=== PATIENT | male | born 1960 | race Two or more races ===

== ENCOUNTER 2020-08-17 09:35 | Inpatient (IN) | payer BC, OTHER ==
[~2020-08-17] VITALS: Ht 167.6 cm; Wt 69.0 kg
--- NOTE | 2020-08-17 09:44 | Emergency Room Report ---
History of Present Illness General Chief Complaint: Upper Respiratory Illness Source: Patient, EMS Present Illness HPI Disclaimer: Please note that this report is being documented using DRAGON technology. This can lead to erroneous entry secondary to incorrect interpretation by the dictating instrument. HPI: 60-year-old male presents from [facility] related for evaluation of shortness of breath. Reportedly he was desaturating during a coughing fit. No fevers reported. Tested positive for Covid in June. Has history of di abetes and hypertension otherwise. Patient denies fever, chills, chest pain, palpitation, nausea, vomiting, abdominal pain or dysuria. Feeling comfortable on nasal cannula. 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 EOMI. Cardiovascular: Tachycardic. S1 and S2 normal. No murmur appreciated Resp: Normal work of breathing. 2 L nasal cannula. 100%. Faint crackles bilaterally. No wheezing. Abdomen: Abdomen is soft, nondistended. Obese abdomen. Nontender Skin: Intact. No abrasions, laceration or rash over the exposed skin MSK: Normal tone and bulk. Moving all extremities. No obvious deformity. Neuro: Awake and alert. Mentating appropriately. Procedures Critical Care Time Critical Care Time Total critical care time: Approximately 45 minutes Due to a high probability of clinically significant, life threatening deterioration, the patient required the highest level of preparedness to intervene emergently and I personally spent this critical care time directly and personally managing the patient. This critical care time included obtaining a history, examining the patient, pulse oximetry, ordering and reviewing studies, ordering treatments, evaluating response to treatment and updating management plan as needed, frequent reassessment and discussion with other providers as well as arranging for ultimate disposition. This critical to care time was p erformed to assess and manage the high probability of life-threatening deterioration that could result in multiorgan failure. This critical care time is separate from the separately billable procedures and treating other patients. Medical Decision Making Diagnostic Impression: Primary Impression: Pneumonia Additional Impressions: Elevated d-dimer Tachycardia ER Course 60-year-old male presents for evaluation of desaturations while coughing at his nursing facility. Concern for pneumonia, bronchitis, COVID-19 infection, sepsis , obstruction, ACS, PE among others. She arrives in no acute distress saturating 100% comfortable on 2 L nasal cannula. His EKG showed sinus tachycardia. Broad labs ordered. IV fluids ordered. Heart rate improving. Lactate within normal limits. White count elevated. Blood gas largely unremarkable. D-dimer positive and patient was treated with Lovenox. Urinalysis shows positive inflammatory signs but not a clear urinary tract infection. Chest x-ray concerning for bilateral congestion versus infiltrates. Treated with broad-spectrum antibiotics. Patient will be admitted for presumed pneumonia given the reports of desaturation elevated white count. Admitted to panel physician, Dr. Evans. Laboratory Tests Test 08/17/20 10:00 08/17/20 10:06 08/17/20 10:50 White Blood Count 15.5 K/UL (4.8-10.8) H Red Blood Count 3.70 M/UL (4.70-6.10) L Hemoglobin 11.1 G/DL (14.2-18.0) L Hematocrit 34.1 % (42.0-52.0) L Mean Corpuscular Volume 92 FL (80-99) Mean Corpuscular Hemoglobin 30.1 PG (27.0-31.0) Mean Corpuscular Hemoglobin Concent 32.6 G/DL (32.0-36.0) Red Cell Distribution Width 16.6 % (11.6-14.8) H Platelet Count 657 K/UL (150-450) H Mean Platelet Volume 5.0 FL (6.5-10.1) L Neutrophils (%) (Auto) 71.8 % (45.0-75.0) Lymphocytes (%) (Auto) 17.8 % (20.0-45.0) L Monocytes (%) (Auto) 7.8 % (1.0-10.0) Eosinophils (%) (Auto) 1.5 % (0.0-3.0) Basophils (%) (Auto) 1.2 % (0.0-2.0) Prothrombin Time 11.8 SEC (9.30-11.50) H Prothrombin Time INR 1.1 (0.9-1.1) Activated Partial Thromboplast Time 32 SEC (23-33) D-Dimer 1.43 mg/L FEU (0.00-0.49) H Sodium Level 135 MMOL/L (136-145) L Potassium Level 3.6 MMOL/L (3.5-5.1) Chloride Level 97 MMOL/L (98-107) L Carbon Dioxide Level 34 MMOL/L (21-32) H Anion Gap 4 mmol/L (5-15) L Blood Urea Nitrogen 13 mg/dL (7-18) Creatinine 0.9 MG/DL (0.55-1.30) Estimated Glomerular Filtration Rate > 60 mL/min (>60) Glucose Level 262 MG/DL (74-106) H Lactic Acid Level 1.30 mmol/L (0.4-2.0) Calcium Level 8.6 MG/DL (8.5-10.1) Magnesium Level 1.3 MG/DL (1.8-2.4) L Ferritin 267 NG/ML (8-388) Total Bilirubin 0.3 MG/DL (0.2-1.0) Aspartate Amino Transferase (AST) 29 U/L (15-37) Alanine Aminotransferase (ALT) 22 U/L (12-78) Alkaline Phosphatase 115 U/L (46-116) Lactate Dehydrogenase 311 U/L (81-234) H Total Creatine Kinase 38 U/L (26-308) Creatine Kinase MB 1.9 NG/ML (0.0-3.6) Creatine Kinase MB Relative Index 5.0 Troponin I 0.000 ng/mL (0.000-0.056) C-Reactive Protein, Quantitative 4.0 mg/dL (0.00-0.90) H Pro-B-Type Natriuretic Peptide 276 pg/mL (0-125) H Total Protein 7.3 G/DL (6.4-8.2) Albumin 2.2 G/DL (3.4-5.0) L Globulin 5.1 g/dL Albumin/Globulin Ratio 0.4 (1.0-2.7) L Lipase 251 U/L (73-393) Arterial Blood pH 7.465 (7.350-7.450) Arterial Blood Partial Pressure CO2 45.2 mmHg (35.0-45.0) H Arterial Blood Partial Pressure O2 102.1 mmHg (75.0-100.0) H Arterial Blood HCO3 31.8 mmol/L (22.0-26.0) H Arterial Blood Oxygen Saturation 97.7 % (95-100) Arterial Blood Base Excess 7.2 (-2-2) H Mars Test Positive Urine Color Pale yellow Urine Appearance Slightly cloudy Urine pH 5 (4.5-8.0) Urine Specific [place] 1.020 (1.005-1.035) Urine Protein 1+ (NEGATIVE) H Urine Glucose (UA) 1+ (NEGATIVE) H Urine Ketones Negative (NEGATIVE) Urine Blood 2+ (NEGATIVE) H Urine Nitrite Negative (NEGATIVE) Urine Bilirubin Negative (NEGATIVE) Urine Urobilinogen Normal MG/DL (0.0-1.0) Urine Leukocyte Esterase 1+ (NEGATIVE) H Urine RBC 2-4 /HPF (0 - 0) H Urine WBC 2-4 /HPF (0 - 0) Urine Squamous Epithelial Cells None /LPF (NONE/OCC) Urine Bacteria Occasional /HPF (NONE) Urine Yeast Many /HPF (NONE) H Microbiology Date/Time Source Procedure Growth Status 08/17/20 10:00 Nasopharynx SARS-CoV-2 RdRp Gene Assay - Final Complete EKG Diagnostic Results Troponin ordered: Yes When was troponin ordered?: Aug 17, 2020 EKG Time: 09:51 Rate: tachycardiac Rhythm: NSR ST Segments: no acute changes Rhythm Strip Diag. Results Rhythm Strip Time: 09:51 EP Interpretation: yes Rate: 130s Rhythm: NSR Chest X-Ray Diagnostic Results Chest X-Ray Diagnostic Results : Chest X-Ray Ordered: Yes Indication: Shortness of Breath EP Interpretation: Yes Interpretation: other - Bilateral pulmonary congestion versus consolidation. Impression: Other - Bilateral congestion Electronically Signed by: Electronically signed by Dr. French Quinn Last Vital Signs Date Time Temp Pulse Resp B/P (MAP) Pulse Ox O2 Delivery O2 Flow Rate FiO2 08/17/20 09:32 97.9 118 20 128/63 84 100 Room Air Disposition: ADMITTED INPATIENT Condition: Serious French Quinn MD Aug 17, 2020 09:44
[2020-08-17] MEDS ORDERED: FUROSEMIDE40 MG ORAL (10:01)
[2020-08-17] MEDS ORDERED: PANTOPRAZOLE SO40 MG ORAL (10:01)
[2020-08-17] MEDS ORDERED: POTASSIUM CHLO20 ME1 ORAL (10:01)
[2020-08-17] MEDS ORDERED: ACIDOPHILUS1 EAC7 PO (10:01)
[2020-08-17] MEDS ORDERED: LANTUS SOL100 UNIT/1 SUBQ (10:01)
[2020-08-17 10:10] VITALS: BP 138/91
--- NOTE | 2020-08-17 10:12 | NUR ---
ED Nurse Note:pt. was BIBA from SNF with respiratory distress and covid positive in june, pt. is tachycardic and hypoxic on arrival, placed on 4L O2 via N/C, blood ,culture sent to labs, pt. placed on phototypesetting equipment monitor
[2020-08-17 10:24] LABS: BASOPHILS % (AUTO) 1.2 % (0.0-2.0); EOSINOPHILS % (AUTO) 1.5 % (0.0-3.0); HEMATOCRIT 34.1 % (42.0-52.0); HEMOGLOBIN 11.1 G/DL (14.2-18.0); LYMPHOCYTES % (AUTO) 17.8 % (20.0-45.0); MEAN CORPUSCULAR VOLUME 92 FL (80-99); MONOCYTES % (AUTO) 7.8 % (1.0-10.0); NEUTROPHILS % (AUTO) 71.8 % (45.0-75.0); PLATELET COUNT 657 K/UL (150-450); RED CELL DISTRIBUTION WIDTH 16.6 % (11.6-14.8); WHITE BLOOD COUNT 15.5 K/UL (4.8-10.8)
[2020-08-17 10:45] LABS: ANION GAP 4 mmol/L (5-15); BLOOD UREA NITROGEN 13 mg/dL (7-18); CALCIUM 8.6 MG/DL (8.5-10.1); CARBON DIOXIDE 34 MMOL/L (21-32); CHLORIDE 97 MMOL/L (98-107); CREATININE 0.9 MG/DL (0.55-1.30); POTASSIUM 3.6 MMOL/L (3.5-5.1); SODIUM 135 MMOL/L (136-145)
[2020-08-17] MEDS ORDERED: Piperacillin/Tazobactam 3.375 GM in NS 110 ML IVPB ONE (10:45)
[2020-08-17] MEDS ORDERED: Vancomycin 1 GM in NS 275 ML IVPB ONE (10:45)
[2020-08-17 10:48] LABS: INR 1.1 (0.9-1.1)
[2020-08-17 11:09] LABS: ALANINE AMINOTRANSFERASE 22 U/L (12-78); ALBUMIN 2.2 G/DL (3.4-5.0); ALBUMIN/GLOBULIN RATIO 0.4 (1.0-2.7); ALKALINE PHOSPHATASE 115 U/L (46-116); ASPARTATE AMINO TRANSFERASE 29 U/L (15-37); BILIRUBIN,TOTAL 0.3 MG/DL (0.2-1.0); CKMB 1.9 NG/ML (0.0-3.6); CREATINE KINASE 38 U/L (26-308); FERRITIN 267 NG/ML (8-388); LACTATE DEHYDROGENASE 311 U/L (81-234)
[2020-08-17 11:19] LABS: APPEARANCE,URINE SLIGHTLY CLOUDY; BILIRUBIN, URINE NEGATIVE (NEGATIVE); COLOR,URINE PALE YELLOW; GLUCOSE, URINE (UA) 1+ (NEGATIVE); KETONES,URINE NEGATIVE (NEGATIVE); LEUKOCYTE ESTERASE ,URINE 1+ (NEGATIVE); NITRITE,URINE NEGATIVE (NEGATIVE); PH,URINE 5 (4.5-8.0); PROTEIN,URINE 1+ (NEGATIVE); UROBILINOGEN,URINE NORMAL MG/DL (0.0-1.0)
[2020-08-17] MEDS ORDERED: Enoxaparin 40mg Inj SUBQ SCH (12:00)
--- NOTE | 2020-08-17 12:00 | NUR ---
ED Nurse Note:pt. came from SNF with F/Catheter in place and right femotal 3-lumen central line
[2020-08-17 12:55] VITALS: BP 120/64
--- NOTE | 2020-08-17 14:07 | NUR ---
ED Nurse Note:pt. has sacral wound, picture taken and downloaded
[2020-08-17 14:10] VITALS: BP 137/70
--- NOTE | 2020-08-17 14:35 | NUR ---
ED Nurse Note:called report to S[facility]- given to Phoebe
--- NOTE | 2020-08-17 14:35 | NUR ---
NURSE NOTES: Received pt a new admission from ED brought to SDU per avi awake,alert oriented Indian speaking noted no resp distress or SOB,on 4 L NC,S-Tach on the monitor,with Henderson cath draining yellow urine,,skin warm and dry,with Rt Femoral TLC and SL to LFA,both intact,SR up x2 HOB elevated bed lock in lowest position,call fischer within reach at bedside,will continue with POC.Report given by Mary Anne LIANG RN.
--- NOTE | 2020-08-17 14:49 | Diagnostic Imaging Report ---
Indication: Reason For Exam: SOB Technique: Single AP view of the chest. Comparison: None. Findings: Heart is enlarged when accounting for projection and technique. There is moderate to severe interstitial edema with patchy diffuse bilateral airspace opacities right hemidiaphragm is noted to be elevated. Likely small bilateral pleural effusions. No acute osseous abnormality. IMPRESSION: 1. Bilateral interstitial and airspace opacities, likely representing moderate pulmonary edema, though superimposed pneumonia is not excluded. 2. Cardiomegaly. 3. Likely small bilateral pleural effusions.
[2020-08-17] MEDS ORDERED: Miralax 17gm pkt ORAL PRN (15:00)
[2020-08-17] MEDS ORDERED: Promethazine/Codeine 5ml UD ORAL PRN (15:00)
[2020-08-17] MEDS ORDERED: LORazepam Inj 2mg/ml 1ml IV PRN (15:00)
--- NOTE | 2020-08-17 15:00 | NUR ---
NURSE NOTES: [facility] of Henderson cath insertion and Rt Femoral TLC,confirmed that Henderson and TLC was with PT when he was admitted to [facility] last Jul from [facility].Pt was admitted at [facility] last 07/05/2020 for + Covid and discharged to [facility] still Covid +.
[2020-08-17 16:00] VITALS: BP 131/73
[2020-08-17] MEDS: NovoLOG Insulin Flexpen SUBQ SCH ×2 (17:30→21:00)
--- NOTE | 2020-08-17 19:00 | NUR ---
NURSE NOTES: Received report from BERNADINE Sandhu. Pt is comfortably lying in bed, watching tv, not in distress. Alert and oriented x 4. Denies pain. Sinus Tachy on the share dairy farmer. Vital signs are stable. Pt just finish eating and awaiting transfer to 2E Room 207. O2 2L NC and saturating 93%.
--- NOTE | 2020-08-17 19:13 | NUR ---
NURSE HAND-OFF REPORT: Important Events on Shift:N/A Patient Status: Stable Diet: CCHO Pending Orders: N/A Pending Results/Labs:N/A Pending MD notification:Physician wound Consult Latest Vital Signs: Temperature 96.8 , Pulse 107 , B/P 131 /73 , Respiratory Rate 20 , O2 SAT 95 , Nasal Cannula, O2 Flow Rate 4.0 . Vital Sign Comment: Stable EKG Rhythm: Sinus Tachycardia Rhythm change?: N MD Notified?: - MD Response: Latest Beltrán Fall Score: 35 Fall Risk: Medium Risk Safety Measures: Call light Within Reach, Bed Alarm Zone 3, Side Rails Side Rails x2, Bed position Low and Locked. Fall Precautions: Yellow Socks Yellow Gown Door Sign Patient Fall Education Report given to Tosin Jimenez RN.
[2020-08-17 20:00] VITALS: BP 145/69
--- NOTE | 2020-08-17 20:00 | NUR ---
TRANSFER TO FLOOR: Patient transferred to 2E. Report given to 2E, RN. Belongings and medications given to RN. Pt vitals are stable, not in distress. O2 saturation @ 93%. Belongings endorse to receiving RN.
--- NOTE | 2020-08-17 20:10 | NUR ---
NURSE NOTES: Report received from BERNADINE Scott. Patient is awake on bed, alert and oriented x 4. Oriented to room and telemetry unit. desk monitor is in place, shows sinus tachycardia with no chest pain reported. On oxygen via nasal cannula @ 2Lpm, sating 95%. On CCHO (Medium), instructed and amenable. With lopez catheter, drained via gravity. On bedrest. Safety measures are in place, bed in lowest and locked position, side rails up x 2, call light button and bedside table within reach, instructed to call for any assistance needed. Will continue plan of care.
--- NOTE | 2020-08-17 20:16 | History & Physical ---
History and Physical History & Physicial Rc Evans MD Aug 17, 2020 20:16
[2020-08-17] MEDS: Cefepime HCl 2 GM in NS 110 ML IV SCH (21:18)
[2020-08-17] MEDS: Heparin 5000 units/ml inj SUBQ SCH (21:20)
[2020-08-17] MEDS: Vancomycin 1 GM in NS 275 ML IVPB SCH (22:18)
[2020-08-18] VITALS: BP 134/70
--- NOTE | 2020-08-18 00:15 | History and Physical Report ---
DATE OF ADMISSION: 08/17/2020 CHIEF COMPLAINT: Shortness of breath and cough. HISTORY OF PRESENT ILLNESS: This is a 60-year-old gentleman with a past medical history significant for COVID-19 infection, hypertension, diabetes type 2, who presented to the hospital from [facility] after he was noted to have shortness of breath. The patient was reported as being desaturating during the cough. No fever was reported. The patient was noted to have COVID positive infection in June 2020 and denies any fever, chills, chest pain, palpitation, nausea, vomiting, abdominal pain, or dysuria. The patient was started on oxygen in the ER and subsequently was admitted to the hospital with shortness of breath and cough, possible due to the pneumonia. PAST MEDICAL HISTORY/PAST SURGICAL HISTORY: As above, history of COVID-19 infection in 06/2020, hypertension, diabetes type 2, obesity. MEDICATIONS AT HOME: Please refer to medication reconciliation. ALLERGIES: No known drug allergies. SOCIAL HISTORY: No smoking, alcohol, or drugs at this time. Family history noncontributory. REVIEW OF SYSTEMS: Mostly as above. Denies any dysuria, frequency, hematuria. Complained of shortness of breath and cough. Denies any hemoptysis or hematochezia. Denies any fever or chills. PHYSICAL EXAMINATION: VITAL SIGNS: On admission, temperature 97.9, pulse of 118, respirations 20, and blood pressure 128/63. GENERAL: The patient is awake, responsive, no acute distress. HEAD AND NECK: Pupils are equal and reactive to light. Extraocular movements intact. NECK: Supple. No JVD. LUNGS: Good air entry. No wheezing or rales. HEART: S1, S2. Tachycardic. No murmur or gallops. ABDOMEN: Soft, nondistended, nontender. Positive bowel sounds. Mildly obese extremities. No cyanosis, clubbing, edema. NEUROLOGIC: red cross executive director II to XII grossly intact. Motor is 5+, symmetric. Gait was not assessed due to the patient's status. RECTAL AND GENITOURINARY: Refused and deferred. PSYCHIATRIC: Mood and affect are intact. LABORATORY DATA: Laboratory on admission, WBC of 15, hemoglobin 11, hematocrit 34, platelet is 657. ABG, pH of 7.45, pCO2 of 45, pO2 of 102, saturating 97%. Sodium 135, potassium 3.6, chloride 97, bicarb 32, BUN 13, creatinine 0.9, glucose is 262. Lactic acid is 1.3, calcium is 8.6, magnesium is 1.3, ferritin is at 267, ALT of 29, AST of 22, alkaline phosphatase 115. Troponin 0.00. ProBNP of 276, CK of 4.0, lipase is 251. PT of 11, INR 1.1, and PTT of 32. D-dimer is 1.43. UA has +1 glucose, +2 blood, +1 leukocytes, many yeast. Chest x-ray, bilateral interstitial and airspace opacities, likely representing moderate pulmonary edema, though superimposed pneumonia is not excluded, cardiomegaly, and likely small bilateral pleural effusions. Rapid COVID test is negative. ASSESSMENT: 1. Shortness of breath, possible pneumonia. 2. Leukocytosis, possibly due to pneumonia. 3. Hypertension. 4. Diabetes type 2. 5. Obesity. 6. Hypoxemia. 7. History of COVID-19 infection in June 2020. PLAN: Admit the patient to monitored unit. We will follow up laboratory. Broad-spectrum antibiotics with vancomycin, cefepime. Code status is full code. DVT prophylaxis, heparin subcu. We will follow up with blood glucose level. Pulmonary consultation with Dr. Herbert. Rc Evans M.D. DR: LEANDRA JOB#: [id number] CC:
[2020-08-18 04:00] VITALS: BP 117/62
[2020-08-18] MEDS: NovoLOG Insulin Flexpen SUBQ SCH ×4 (06:15→21:30)
--- NOTE | 2020-08-18 07:31 | NUR ---
NURSE NOTES: Report received from BERNADINE Oliver. Patient is awake on bed, alert and oriented x 4. Oriented to room and telemetry unit. child monitor is in place, shows sinus tachycardia with no chest pain reported. On oxygen via nasal cannula @ 2Lpm, sating 95%. Pt has a lopez catheter 18F, drained via gravity with [id number] urine. Safety measures are in place, bed in lowest and locked position, side rails up x 2 and bed alarm on. Call light and bedside table within reach. Will continue plan of care.
--- NOTE | 2020-08-18 07:32 | NUR ---
NURSE HAND-OFF REPORT: Important Events on Shift: Patient has been resting well the whole shift, noted SOB on exertion Patient Status: Patien is awake on bed, in stable condition, plan of care endorsed. Diet: CCHO (Medium) Pending Orders: Vanco through 08/19 0900 Pending Results/Labs:lab result that was done this morning Pending MD notification:none Latest Vital Signs: Temperature 97.5 , Pulse 99 , B/P 117 /62 , Respiratory Rate 24 , O2 SAT 97 , Nasal Cannula, O2 Flow Rate 2.0 . Vital Sign Comment: stable EKG Rhythm: Sinus Rhythm Rhythm change?: N MD Notified?: N - MD Response: Latest Beltrán Fall Score: 35 Fall Risk: Medium Risk Safety Measures: Call light Within Reach, Bed Alarm Zone 1, Side Rails Side Rails x2, Bed position Low and Locked. Fall Precautions: Yellow Socks Yellow Gown Door Sign Patient Fall Education Report given to BENRADINE Earl.
[2020-08-18 07:39] LABS: BASOPHILS % (AUTO) 1.2 % (0.0-2.0); EOSINOPHILS % (AUTO) 3.3 % (0.0-3.0); HEMATOCRIT 31.6 % (42.0-52.0); LYMPHOCYTES % (AUTO) 19.3 % (20.0-45.0); MEAN CORPUSCULAR VOLUME 95 FL (80-99); MONOCYTES % (AUTO) 10.2 % (1.0-10.0); PLATELET COUNT 553 K/UL (150-450); RED BLOOD COUNT 3.32 M/UL (4.70-6.10); RED CELL DISTRIBUTION WIDTH 16.3 % (11.6-14.8); WHITE BLOOD COUNT 10.7 K/UL (4.8-10.8)
[2020-08-18 07:40] LABS: INR 1.1 (0.9-1.1)
[2020-08-18 07:41] LABS: ALBUMIN 2.1 G/DL (3.4-5.0); ANION GAP 3 mmol/L (5-15); BLOOD UREA NITROGEN 12 mg/dL (7-18); CALCIUM 8.4 MG/DL (8.5-10.1); CARBON DIOXIDE 33 MMOL/L (21-32); CHLORIDE 101 MMOL/L (98-107); CREATININE 0.9 MG/DL (0.55-1.30); PHOSPHORUS 4.2 MG/DL (2.5-4.9); POTASSIUM 3.5 MMOL/L (3.5-5.1); SODIUM 137 MMOL/L (136-145)
[2020-08-18 08:00] VITALS: BP 136/70
[2020-08-18] MEDS: Cefepime HCl 2 GM in NS 110 ML IV SCH ×2 (09:16→21:25)
[2020-08-18] MEDS: Heparin 5000 units/ml inj SUBQ SCH ×2 (09:17→21:26)
[2020-08-18] MEDS: Vancomycin 1 GM in NS 275 ML IVPB SCH ×2 (09:52→22:26)
[2020-08-18 12:00] VITALS: BP 140/75
--- NOTE | 2020-08-18 12:17 | NUR ---
NURSE NOTES:WOUND ASSESSMENT PATIENT AWAKE, ALERT AND ABLE TO [id number] SELF WITH MINIMAL ASSISTANCE. O2 VIA NASAL CANULA. SACRUM-STAGE III MEASURES [id number]. WOUND BED WITH 60% SLOUGH AND 40% PINK GRANULATION TISSUE. MINIMAL SERO-SANGUINEOUS DRAINAGE NOTED. SPENCER-WOUND SKIN INTACT. RECOMMEND- WOUND CONSULT. CLEAN WITH SALINE. PAT DRY. APPLY THERAHONEY AND COVER WITH OPTIFOAM DRESSING. REPLACE DRESSING DAILY. PATIENT SHOULD BE REMINDED TO REPOSITION SELF FREQUENTLY. ELEVATE HEELS WITH PILLOWS.
--- NOTE | 2020-08-18 12:50 | Consultation ---
History of Present Illness General Date patient seen: Aug 18, 2020 Chief Complaint: Upper Respiratory Illness Present Illness HPI 60-year-old male with hx of HTN, DM, COVID + in June [facility] shortness of breath. Reportedly he w as desaturating during a coughing fit. No fevers reported. Patient denies fever, chills, chest pain, palpitation, nausea, vomiting, abdominal pain or dysuria. His initial CXR showed bilateral interstitial/alveolar infiltrate. He is admitted for further management. Allergies: Coded Allergies: No Known Allergies (Unverified , 08/17/20) Medication History Scheduled Furosemide* (Lasix*), 40 MG ORAL TWICE A DAY, (Reported) Insulin Glargine (Lantus), 0 SUBQ BEDTIME, (Reported) Lactobacillus Acidophilus (Acidophilus), 1 EACH PO TID, (Reported) Pantoprazole* (Pantoprazole*), 40 MG ORAL DAILY, (Reported) Potassium Chloride* (K-Dur*), 20 MEQ ORAL TWICE A DAY, (Reported) Patient History Healthcare decision maker Resuscitation status Advanced Directive on File Past Medical/Surgical History Past Medical/Surgical History: (1) History of diabetes mellitus (2) History of CHF (congestive heart failure) (3) History of hypertension Review of Systems All Other Systems: negative except mentioned in HPI Physical Exam General Appearance: no apparent distress, thin Lines, tubes and drains: peripheral HEENT: normocephalic, atraumatic, anicteric, mucous membranes moist, PERRL Neck: non-tender, supple, normal inspection Respiratory/Chest: chest wall non-tender, no accessory muscle use, rhonchi - bilaterally, rhonchi - right Breasts: no masses Cardiovascular/Chest: normal peripheral pulses, normal rate Abdomen: normal bowel sounds, non tender, no organomegaly, no mass, abnormal bowel sounds Extremities: normal range of motion, non-tender, no calf tenderness Skin Exam: normal pigmentation, warm/dry Last 24 Hour Vital Signs Date Time Temp Pulse Resp B/P (MAP) Pulse Ox O2 Delivery O2 Flow Rate FiO2 08/18/20 09:00 Nasal Cannula 2.0 08/18/20 08:00 112 08/18/20 08:00 98.6 112 21 136/70 (92) 97 08/18/20 04:00 97.5 99 24 117/62 (80) 97 08/18/20 04:00 89 08/18/20 00:00 96.3 102 26 134/70 (91) 95 08/18/20 00:00 99 08/17/20 21:00 Nasal Cannula 2.0 08/17/20 20:35 98 08/17/20 20:00 97.5 108 20 145/69 (94) 95 08/17/20 19:37 119 08/17/20 16:00 96.8 107 20 131/73 (92) 95 08/17/20 15:40 98 08/17/20 15:18 Nasal Cannula 4.0 08/17/20 14:35 97.9 96 25 120/64 100 Nasal Cannula 2.0 08/17/20 14:10 98.6 105 20 137/70 (92) 92 08/17/20 12:55 102 25 Nasal Cannula 2.0 08/17/20 12:55 97.9 96 25 120/64 100 Nasal Cannula 2.0 Intake and Output 08/17/20 08/18/20 19:00 07:00 Intake Total 240 ml 500 ml Output Total 600 ml 650 ml Balance -360 ml -150 ml Intake Oral 240 ml 500 ml Output Urine Total 600 ml 650 ml Laboratory Tests Test 08/17/20 17:19 08/17/20 21:29 08/18/20 05:35 08/18/20 06:06 POC Whole Blood Glucose 145 MG/DL (74-106) H Pending Pending White Blood Count 10.7 K/UL (4.8-10.8) Red Blood Count 3.32 M/UL (4.70-6.10) L Hemoglobin 10.0 G/DL (14.2-18.0) L Hematocrit 31.6 % (42.0-52.0) L Mean Corpuscular Volume 95 FL (80-99) Mean Corpuscular Hemoglobin 30.1 PG (27.0-31.0) Mean Corpuscular Hemoglobin Concent 31.6 G/DL (32.0-36.0) L Red Cell Distribution Width 16.3 % (11.6-14.8) H Platelet Count 553 K/UL (150-450) H Mean Platelet Volume 4.8 FL (6.5-10.1) L Neutrophils (%) (Auto) 66.0 % (45.0-75.0) Lymphocytes (%) (Auto) 19.3 % (20.0-45.0) L Monocytes (%) (Auto) 10.2 % (1.0-10.0) H Eosinophils (%) (Auto) 3.3 % (0.0-3.0) H Basophils (%) (Auto) 1.2 % (0.0-2.0) Prothrombin Time 12.1 SEC (9.30-11.50) H Prothromb Time International Ratio 1.1 (0.9-1.1) Activated Partial Thromboplast Time 34 SEC (23-33) H Sodium Level 137 MMOL/L (136-145) Potassium Level 3.5 MMOL/L (3.5-5.1) Chloride Level 101 MMOL/L (98-107) Carbon Dioxide Level 33 MMOL/L (21-32) H Anion Gap 3 mmol/L (5-15) L Blood Urea Nitrogen 12 mg/dL (7-18) Creatinine 0.9 MG/DL (0.55-1.30) Estimat Glomerular Filtration Rate > 60 mL/min (>60) Glucose Level 104 MG/DL (74-106) # Calcium Level 8.4 MG/DL (8.5-10.1) L Phosphorus Level 4.2 MG/DL (2.5-4.9) Magnesium Level 1.4 MG/DL (1.8-2.4) L Troponin I 0.000 ng/mL (0.000-0.056) Albumin 2.1 G/DL (3.4-5.0) L Test 08/18/20 11:55 POC Whole Blood Glucose 182 MG/DL (74-106) H Microbiology Date/Time Source Procedure Growth Status 08/17/20 13:40 Rectum Received Height (Feet): 5 Height (Inches): 6.00 Weight (Pounds): 160 Medications Current Medications Medications (Trade) Dose Ordered Sig/Jonny Route PRN Reason Start Time Stop Time Status Last Admin Dose Admin Acetaminophen (Tylenol) 650 mg Q4H PRN ORAL Temp >100.5 08/17/20 15:00 09/16/20 14:59 Albuterol/ Ipratropium (Albuterol/ Ipratropium) 3 ml Q4H PRN HHN Shortness of Breath 10/22/20 15:00 08/22/20 14:59 Cefepime HCl 2 gm/ Sodium Chloride 110 ml @ 220 mls/hr EVERY 12 HOURS IV 08/17/20 21:00 08/24/20 20:59 08/18/20 09:16 Dextrose (Dextrose 50%) 25 ml Q30M PRN IV Hypoglycemia 08/17/20 23:30 11/15/20 23:29 Dextrose (Dextrose 50%) 50 ml Q30M PRN IV Hypoglycemia 08/17/20 23:30 11/15/20 23:29 Heparin Sodium (Porcine) (Heparin 5000 units/ml) 5,000 units EVERY 12 HOURS SUBQ 08/17/20 21:00 10/01/20 20:59 08/18/20 09:17 Insulin Aspart (NovoLOG) BEFORE MEALS AND HS SUBQ 08/18/20 06:30 11/16/20 06:29 08/18/20 12:05 Lorazepam (Ativan 2mg/ml 1ml) 2 mg Q2H PRN IV For Anxiety 08/17/20 15:00 08/24/20 14:59 Magnesium Sulfate 100 ml @ 100 mls/hr Q1H IVPB 08/18/20 09:30 08/18/20 13:29 08/18/20 11:59 Ondansetron HCl (Zofran) 4 mg Q6H PRN IVP Nausea & Vomiting 08/17/20 15:00 09/16/20 14:59 Pantoprazole (Protonix) 40 mg DAILY ORAL 08/18/20 09:00 09/17/20 08:59 08/18/20 09:15 Polyethylene Glycol (Miralax) 17 gm DAILYPRN PRN ORAL Constipation 08/17/20 15:00 09/16/20 14:59 Promethazine HCl/ Codeine (Phenergan with Codeine) 5 ml Q4H PRN ORAL For Cough 08/17/20 15:00 09/16/20 14:59 Vancomycin HCl (Vanco pharmacy to dose) 1 ea DAILY PRN MISC . 08/17/20 15:00 09/16/20 14:59 Vancomycin HCl 1 gm/Sodium Chloride 275 ml @ 183.299 mls/hr Q12H IVPB 08/17/20 22:00 08/22/20 21:59 08/18/20 09:52 Assessment/Plan Problem List: (1) Nosocomial pneumonia ICD Codes: J18.9 - Pneumonia, unspecified organism; Y95 - Nosocomial condition SNOMED: 402072933 (2) History of 2019 novel coronavirus disease (COVID-19) ICD Codes: Z86.19 - Personal history of other infectious and parasitic diseases SNOMED: 758313362 (3) History of hypertension ICD Codes: Z86.79 - Personal history of other diseases of the circulatory system SNOMED: 909535407 (4) History of CHF (congestive heart failure) ICD Codes: Z86.79 - Personal history of other diseases of the circulatory system SNOMED: 954393028 (5) History of diabetes mellitus ICD Codes: Z86.39 - Personal history of other endocrine, nutritional and metabolic disease SNOMED: 403761612 Assessment/Plan: Repeat COVID again respiratory treatment check sputum ID evaluation Echocardiogram sliding scale diabetic diet Cecilio Herbert MD Aug 18, 2020 12:50
--- NOTE | 2020-08-18 13:00 | Consultation ---
History of Present Illness General Date patient seen: Aug 18, 2020 Chief Complaint: Upper Respiratory Illness Present Illness HPI 60 y/o M with hx of COVID19 PNA 07/05/2020, DM2, HTN, SNF resident ( [facility]) presented to ED on 08/17/20 with SOB, cough, desaturation episode during a coughing fit. Denied f/c, CP, n/v, abd pain, dysuria Allergies: Coded Allergies: No Known Allergies (Unverified , 08/17/20) Medication History Scheduled Furosemide* (Lasix*), 40 MG ORAL TWICE A DAY, (Reported) Insulin Glargine (Lantus), 0 SUBQ BEDTIME, (Reported) Lactobacillus Acidophilus (Acidophilus), 1 EACH PO TID, (Reported) Pantoprazole* (Pantoprazole*), 40 MG ORAL DAILY, (Reported) Potassium Chloride* (K-Dur*), 20 MEQ ORAL TWICE A DAY, (Reported) Patient History Healthcare decision maker Resuscitation status Advanced Directive on File Patient History Narrative Pmhx: as above Shx: No smoking, alcohol, or drugs at this time. Fhx: non contributory Review of Systems All Other Systems: negative except mentioned in HPI Physical Exam Physical Exam Narrative GENERAL: The patient is awake, responsive, no acute distress. HEAD AND NECK: Pupils are equal and reactive to light. Extraocular movements intact. NECK: Supple. No JVD. LUNGS: Good air entry. No wheezing or rales. HEART: S1, S2. Tachycardic. No murmur or gallops. ABDOMEN: Soft, nondistended, nontender. Positive bowel sounds. Mildly obese extremities. No cyanosis, clubbing, edema. Last 24 Hour Vital Signs Date Time Temp Pulse Resp B/P (MAP) Pulse Ox O2 Delivery O2 Flow Rate FiO2 08/18/20 09:00 Nasal Cannula 2.0 08/18/20 08:00 112 08/18/20 08:00 98.6 112 21 136/70 (92) 97 08/18/20 04:00 97.5 99 24 117/62 (80) 97 08/18/20 04:00 89 08/18/20 00:00 96.3 102 26 134/70 (91) 95 08/18/20 00:00 99 08/17/20 21:00 Nasal Cannula 2.0 08/17/20 20:35 98 08/17/20 20:00 97.5 108 20 145/69 (94) 95 08/17/20 19:37 119 08/17/20 16:00 96.8 107 20 131/73 (92) 95 08/17/20 15:40 98 08/17/20 15:18 Nasal Cannula 4.0 08/17/20 14:35 97.9 96 25 120/64 100 Nasal Cannula 2.0 08/17/20 14:10 98.6 105 20 137/70 (92) 92 08/17/20 12:55 102 25 Nasal Cannula 2.0 08/17/20 12:55 97.9 96 25 120/64 100 Nasal Cannula 2.0 Intake and Output 08/17/20 08/18/20 19:00 07:00 Intake Total 240 ml 500 ml Output Total 600 ml 650 ml Balance -360 ml -150 ml Intake Oral 240 ml 500 ml Output Urine Total 600 ml 650 ml Laboratory Tests Test 08/17/20 17:19 08/17/20 21:29 08/18/20 05:35 08/18/20 06:06 POC Whole Blood Glucose 145 MG/DL (74-106) H Pending Pending White Blood Count 10.7 K/UL (4.8-10.8) Red Blood Count 3.32 M/UL (4.70-6.10) L Hemoglobin 10.0 G/DL (14.2-18.0) L Hematocrit 31.6 % (42.0-52.0) L Mean Corpuscular Volume 95 FL (80-99) Mean Corpuscular Hemoglobin 30.1 PG (27.0-31.0) Mean Corpuscular Hemoglobin Concent 31.6 G/DL (32.0-36.0) L Red Cell Distribution Width 16.3 % (11.6-14.8) H Platelet Count 553 K/UL (150-450) H Mean Platelet Volume 4.8 FL (6.5-10.1) L Neutrophils (%) (Auto) 66.0 % (45.0-75.0) Lymphocytes (%) (Auto) 19.3 % (20.0-45.0) L Monocytes (%) (Auto) 10.2 % (1.0-10.0) H Eosinophils (%) (Auto) 3.3 % (0.0-3.0) H Basophils (%) (Auto) 1.2 % (0.0-2.0) Prothrombin Time 12.1 SEC (9.30-11.50) H Prothromb Time International Ratio 1.1 (0.9-1.1) Activated Partial Thromboplast Time 34 SEC (23-33) H Sodium Level 137 MMOL/L (136-145) Potassium Level 3.5 MMOL/L (3.5-5.1) Chloride Level 101 MMOL/L (98-107) Carbon Dioxide Level 33 MMOL/L (21-32) H Anion Gap 3 mmol/L (5-15) L Blood Urea Nitrogen 12 mg/dL (7-18) Creatinine 0.9 MG/DL (0.55-1.30) Estimat Glomerular Filtration Rate > 60 mL/min (>60) Glucose Level 104 MG/DL (74-106) # Calcium Level 8.4 MG/DL (8.5-10.1) L Phosphorus Level 4.2 MG/DL (2.5-4.9) Magnesium Level 1.4 MG/DL (1.8-2.4) L Troponin I 0.000 ng/mL (0.000-0.056) Albumin 2.1 G/DL (3.4-5.0) L Test 08/18/20 11:55 POC Whole Blood Glucose 182 MG/DL (74-106) H Microbiology Date/Time Source Procedure Growth Status 08/17/20 13:40 Rectum Received Height (Feet): 5 Height (Inches): 6.00 Weight (Pounds): 160 Medications Current Medications Medications (Trade) Dose Ordered Sig/Jonny Route PRN Reason Start Time Stop Time Status Last Admin Dose Admin Acetaminophen (Tylenol) 650 mg Q4H PRN ORAL Temp >100.5 08/17/20 15:00 09/16/20 14:59 Albuterol/ Ipratropium (Albuterol/ Ipratropium) 3 ml Q4H PRN HHN Shortness of Breath 08/17/20 15:00 08/22/20 14:59 Cefepime HCl 2 gm/ Sodium Chloride 110 ml @ 220 mls/hr EVERY 12 HOURS IV 08/17/20 21:00 08/24/20 20:59 08/18/20 09:16 Dextrose (Dextrose 50%) 25 ml Q30M PRN IV Hypoglycemia 08/17/20 23:30 11/15/20 23:29 Dextrose (Dextrose 50%) 50 ml Q30M PRN IV Hypoglycemia 08/17/20 23:30 11/15/20 23:29 Heparin Sodium (Porcine) (Heparin 5000 units/ml) 5,000 units EVERY 12 HOURS SUBQ 08/17/20 21:00 10/01/20 20:59 08/18/20 09:17 Insulin Aspart (NovoLOG) BEFORE MEALS AND HS SUBQ 08/18/20 06:30 11/16/20 06:29 08/18/20 12:05 Lorazepam (Ativan 2mg/ml 1ml) 2 mg Q2H PRN IV For Anxiety 08/17/20 15:00 08/24/20 14:59 Magnesium Sulfate 100 ml @ 100 mls/hr Q1H IVPB 08/18/20 09:30 08/18/20 13:29 08/18/20 11:59 Ondansetron HCl (Zofran) 4 mg Q6H PRN IVP Nausea & Vomiting 08/17/20 15:00 09/16/20 14:59 Pantoprazole (Protonix) 40 mg DAILY ORAL 08/18/20 09:00 09/17/20 08:59 08/18/20 09:15 Polyethylene Glycol (Miralax) 17 gm DAILYPRN PRN ORAL Constipation 08/17/20 15:00 09/16/20 14:59 Promethazine HCl/ Codeine (Phenergan with Codeine) 5 ml Q4H PRN ORAL For Cough 08/17/20 15:00 09/16/20 14:59 Vancomycin HCl (Vanco pharmacy to dose) 1 ea DAILY PRN MISC . 08/17/20 15:00 09/16/20 14:59 Vancomycin HCl 1 gm/Sodium Chloride 275 ml @ 183.299 mls/hr Q12H IVPB 08/17/20 22:00 08/22/20 21:59 08/18/20 09:52 Assessment/Plan Assessment/Plan: Abx: IV Vancomycin 08/17- Cefepime 08/17- ZOsyn x 1 08/17 Assessment: Sepsis Pneumonia- r/o Influenza Pulmonary edema Acute hypercapnic resp failure -08/17 CXR: Bilateral interstitial and airspace opacities, likely representing moderate pulmonary edema, though superimposed pneumonia is not excluded. Cardiomegaly.. Likely small bilateral pleural effusions. rapid COVID PCR neg Afebrile Leukocytosis, SP hx of COVID19 PNA 07/05/2020 DM2 HTN SNF resident ( [facility]) Plan: -COntinue empiric IV Vancomycin and Cefepime #2 -f/u cx -Monitor CBC/CMP, temperatures -sp cx, influenza screen, legionella ag urine -aspiration precautions Thank you for consulting [facility]. Will continue to follow along with you. Discussed with Brianda Young M.D. Aug 18, 2020 13:00
--- NOTE | 2020-08-18 14:33 | NUR ---
CASE MANAGEMENT:REVIEW 60 YR OLD MALE BIBA FROM [facility] PMH: COVID POSITIVE ON 07/05/20 CC: TACHYCARDIC AND HYPOXIA SI: PNEUMONIA 97.8 125 20 128/63 100% ON RA WBC+15.5 MAG-1.4 IS: PLACED ON 2L/NC IV VANCOMYCIN IV ZOSYN URINE CX BLOOD CX CXR : TO TELEMETRY IS: IV MAG SULFATE Q1HR X4 BAGS
[2020-08-18 16:00] VITALS: BP 140/75
--- NOTE | 2020-08-18 17:11 | Internal Med Progress Note ---
Subjective Physician Name Rc Evans Attending Physician Rc Evans MD Current Medications Medications (Trade) Dose Ordered Sig/Jonny Route PRN Reason Start Time Stop Time Status Last Admin Dose Admin Acetaminophen (Tylenol) 650 mg Q4H PRN ORAL Temp >100.5 08/17/20 15:00 09/16/20 14:59 Albuterol/ Ipratropium (Albuterol/ Ipratropium) 3 ml Q4H PRN HHN Shortness of Breath 08/17/20 15:00 08/22/20 14:59 Cefepime HCl 2 gm/ Sodium Chloride 110 ml @ 220 mls/hr EVERY 12 HOURS IV 08/17/20 21:00 08/24/20 20:59 08/18/20 09:16 Dextrose (Dextrose 50%) 25 ml Q30M PRN IV Hypoglycemia 08/17/20 23:30 11/15/20 23:29 Dextrose (Dextrose 50%) 50 ml Q30M PRN IV Hypoglycemia 08/17/20 23:30 11/15/20 23:29 Heparin Sodium (Porcine) (Heparin 5000 units/ml) 5,000 units EVERY 12 HOURS SUBQ 08/17/20 21:00 10/01/20 20:59 08/18/20 09:17 Insulin Aspart (NovoLOG) BEFORE MEALS AND HS SUBQ 08/18/20 06:30 11/16/20 06:29 08/18/20 17:09 Lorazepam (Ativan 2mg/ml 1ml) 2 mg Q2H PRN IV For Anxiety 08/17/20 15:00 08/24/20 14:59 Ondansetron HCl (Zofran) 4 mg Q6H PRN IVP Nausea & Vomiting 08/17/20 15:00 09/16/20 14:59 Pantoprazole (Protonix) 40 mg DAILY ORAL 08/18/20 09:00 09/17/20 08:59 08/18/20 09:15 Polyethylene Glycol (Miralax) 17 gm DAILYPRN PRN ORAL Constipation 08/17/20 15:00 09/16/20 14:59 Promethazine HCl/ Codeine (Phenergan with Codeine) 5 ml Q4H PRN ORAL For Cough 08/17/20 15:00 09/16/20 14:59 Vancomycin HCl (Vanco pharmacy to dose) 1 ea DAILY PRN MISC . 08/17/20 15:00 09/16/20 14:59 Vancomycin HCl 1 gm/Sodium Chloride 275 ml @ 183.299 mls/hr Q12H IVPB 08/17/20 22:00 08/22/20 21:59 08/18/20 09:52 Allergies: Coded Allergies: No Known Allergies (Unverified , 08/17/20) Subjective awake, alert, responsive, denies any chest pain, decreased shortness of breath, WBC: 10.7 decrease. Objective Last Vital Signs Date Time Temp Pulse Resp B/P (MAP) Pulse Ox O2 Delivery O2 Flow Rate FiO2 08/18/20 12:00 112 08/18/20 12:00 98.0 22 140/75 (96) 97 08/18/20 09:00 Nasal Cannula 2.0 Laboratory Tests Test 08/17/20 17:19 08/17/20 21:29 08/18/20 05:35 08/18/20 06:06 POC Whole Blood Glucose 145 MG/DL (74-106) H Pending Pending White Blood Count 10.7 K/UL (4.8-10.8) Red Blood Count 3.32 M/UL (4.70-6.10) L Hemoglobin 10.0 G/DL (14.2-18.0) L Hematocrit 31.6 % (42.0-52.0) L Mean Corpuscular Volume 95 FL (80-99) Mean Corpuscular Hemoglobin 30.1 PG (27.0-31.0) Mean Corpuscular Hemoglobin Concent 31.6 G/DL (32.0-36.0) L Red Cell Distribution Width 16.3 % (11.6-14.8) H Platelet Count 553 K/UL (150-450) H Mean Platelet Volume 4.8 FL (6.5-10.1) L Neutrophils (%) (Auto) 66.0 % (45.0-75.0) Lymphocytes (%) (Auto) 19.3 % (20.0-45.0) L Monocytes (%) (Auto) 10.2 % (1.0-10.0) H Eosinophils (%) (Auto) 3.3 % (0.0-3.0) H Basophils (%) (Auto) 1.2 % (0.0-2.0) Prothrombin Time 12.1 SEC (9.30-11.50) H Prothromb Time International Ratio 1.1 (0.9-1.1) Activated Partial Thromboplast Time 34 SEC (23-33) H Sodium Level 137 MMOL/L (136-145) Potassium Level 3.5 MMOL/L (3.5-5.1) Chloride Level 101 MMOL/L (98-107) Carbon Dioxide Level 33 MMOL/L (21-32) H Anion Gap 3 mmol/L (5-15) L Blood Urea Nitrogen 12 mg/dL (7-18) Creatinine 0.9 MG/DL (0.55-1.30) Estimat Glomerular Filtration Rate > 60 mL/min (>60) Glucose Level 104 MG/DL (74-106) # Calcium Level 8.4 MG/DL (8.5-10.1) L Phosphorus Level 4.2 MG/DL (2.5-4.9) Magnesium Level 1.4 MG/DL (1.8-2.4) L Troponin I 0.000 ng/mL (0.000-0.056) Albumin 2.1 G/DL (3.4-5.0) L Test 08/18/20 11:55 08/18/20 16:00 08/18/20 17:05 POC Whole Blood Glucose 182 MG/DL (74-106) H 182 MG/DL (74-106) H Urine Legionella Antigen Pending Microbiology Date/Time Source Procedure Growth Status 08/18/20 16:02 Nasopharynx - Final Complete 08/18/20 16:02 Nasopharynx - Final Complete 08/18/20 13:10 Nasopharynx SARS-CoV-2 RdRp Gene Assay - Final Complete 08/17/20 13:40 Rectum Received 08/17/20 10:50 Urine,Clean Catch Urine Culture - Preliminary NO GROWTH AFTER 24 HOURS Resulted 08/17/20 10:00 Nasopharynx SARS-CoV-2 RdRp Gene Assay - Final Complete Intake and Output 08/17/20 08/18/20 19:00 07:00 Intake Total 240 ml 500 ml Output Total 600 ml 650 ml Balance -360 ml -150 ml Intake Oral 240 ml 500 ml Output Urine Total 600 ml 650 ml Objective General: No acute distress, awake and alert HEENT: NCAT, sclera anicteric, PERRL, EOMI. Neck: Supple, no significant jugular venous distention, Lungs: Good inspiratory effort, clear to auscultation bilaterally, no Wheeze or Rales. Heart: Regular rate and rhythm, normal S1/S2, no murmurs Abdomen: soft, nontender, nondistended. Normoactive bowel sounds. / Rectal: Refused and deferred. Extremities: No Cyanosis , clubbing or edema. Neuro: A&O x 3, Able to move all extremities Skin: warm, no rashes or lesions Psych: Normal mood and affect Assessment/Plan Assessment/Plan ASSESSMENT: 1. Shortness of breath, possible pneumonia. 2. Leukocytosis, possibly due to pneumonia. 3. Hypertension. 4. Diabetes type 2. 5. Obesity. 6. Hypoxemia. 7. History of COVID-19 infection in June 2020. PLAN: In monitored unit. monitor laboratory and cultures. Broad-spectrum antibiotics with vancomycin and cefepime IV. Code status is full code. DVT prophylaxis, heparin subcu. Pulmonary consultation with Dr. Herbert. Infection disease consultation with Rc Smith MD Aug 18, 2020 17:11
[2020-08-18] MEDS ORDERED: EFFER-K 20 MEQ20 MEQ PO (17:40)
--- NOTE | 2020-08-18 19:40 | NUR ---
NURSE HAND-OFF REPORT: Important Events on Shift: Influenza Swab A and B came back negative. Also additional COVID rapid swab came back negative. Patient Status: Stable Diet: CCHo Med. Pending Orders: Pending Results/Labs:Urine Pending MD notification: Latest Vital Signs: Temperature 97.9 , Pulse 105 , B/P 140 /75 , Respiratory Rate 19 , O2 SAT 95 , Nasal Cannula, O2 Flow Rate 2.0 . Vital Sign Comment: EKG Rhythm: Sinus Rhythm Rhythm change?: N MD Notified?: N - MD Response: Latest Beltrán Fall Score: 35 Fall Risk: Medium Risk Safety Measures: Call light Within Reach, Bed Alarm Zone 1, Side Rails Side Rails x2, Bed position Low and Locked. Fall Precautions: Yellow Socks Yellow Gown Door Sign Patient Fall Education Report given to
--- NOTE | 2020-08-18 19:47 | NUR ---
NURSE NOTES: Patient received from Mady COLINDRES. Alert and oriented x4. No c/o pain and no s/s of distress. Saturating well on 2L of oxygen via nasal canula. IV site patent and intact on Left FA 20G SL and Right femoral catheter present patent and intact. Bed in lowest position and locked. Bed in high fowlers. Awaiting P200 mattress for patient. Call light and bedside table within reach. Will continue plan of care.
[2020-08-18 20:00] VITALS: BP 142/77
[2020-08-19] VITALS: BP 142/69
[2020-08-19 04:00] VITALS: BP 127/74
[2020-08-19] MEDS: NovoLOG Insulin Flexpen SUBQ SCH ×4 (05:41→20:44)
--- NOTE | 2020-08-19 07:15 | NUR ---
NURSE HAND-OFF REPORT: Important Events on Shift:[SVT HR 130 patient asymptomatic] Patient Status: [Stable] Diet: [[employer] MEDIUM] Pending Orders: [] Pending Results/Labs:[] Pending MD notification:[Y] Latest Vital Signs: Temperature 98.5 , Pulse 90 , B/P 127 /74 , Respiratory Rate 18 , O2 SAT 94 , Nasal Cannula, O2 Flow Rate 2.0 . Vital Sign Comment: [] EKG Rhythm: Sinus Rhythm Rhythm change?: N MD Notified?: N - MD Response: Latest Beltrán Fall Score: 35 Fall Risk: Medium Risk Safety Measures: Call light Within Reach, Bed Alarm Zone 1, Side Rails Side Rails x2, Bed position Low and Locked. Fall Precautions: Yellow Socks Yellow Gown Door Sign Patient Fall Education Report given to [Crista RN].
--- NOTE | 2020-08-19 07:16 | NUR ---
NURSE NOTES: Received report from Josh/RN, Observed patient awake, eating breakfast in bed. On 2L nasal canula, No acute distress/SOB noted. Breathing even and unlabored. Able to make needs known, Denies pain at this time. Bed in low position and locked, Call light within reach, Encouraged to use call light when needed. Will continue plan of care.
[2020-08-19 07:50] LABS: BASOPHILS % (AUTO) 0.9 % (0.0-2.0); EOSINOPHILS % (AUTO) 3.2 % (0.0-3.0); HEMATOCRIT 32.3 % (42.0-52.0); HEMOGLOBIN 10.2 G/DL (14.2-18.0); MEAN CORPUSCULAR VOLUME 94 FL (80-99); MONOCYTES % (AUTO) 10.6 % (1.0-10.0); NEUTROPHILS % (AUTO) 67.4 % (45.0-75.0); PLATELET COUNT 545 K/UL (150-450); RED BLOOD COUNT 3.42 M/UL (4.70-6.10); RED CELL DISTRIBUTION WIDTH 16.1 % (11.6-14.8); WHITE BLOOD COUNT 11.5 K/UL (4.8-10.8)
--- NOTE | 2020-08-19 07:58 | Infectious Diseases Prog Note ---
Assessment/Plan Abx: IV Vancomycin Cefepime 08/17- ZOsyn x 1 08/17 Assessment: Sepsis Pneumonia- r/o Influenza Pulmonary edema Acute hypercapnic resp failure -08/17 CXR: Bilateral interstitial and airspace opacities, likely representing moderate pulmonary edema, though superimposed pneumonia is not excluded. Cardiomegaly.. Likely small bilateral pleural effusions. rapid COVID PCR neg Influenza PCR neg Afebrile Leukocytosis, SP hx of COVID19 PNA 07/05/2020 DM2 HTN SNF resident ( [facility]) Plan: Stop empiric vanco #3 given neg MRSA nares and neg cx thus far Continue empiric Cefepime #3 -f/u cx -Monitor CBC/CMP, temperatures -sp cx, legionella ag urine -aspiration precautions Thank you for consulting [facility]. Will continue to follow along with you. Discussed with RN. Subjective Allergies: Coded Allergies: No Known Allergies (Unverified , 08/17/20) AF WBC 11.5 2L NC NAD in bed Objective Last 24 Hour Vital Signs Date Time Temp Pulse Resp B/P (MAP) Pulse Ox O2 Delivery O2 Flow Rate FiO2 08/19/20 04:00 89 08/19/20 04:00 98.5 90 18 127/74 (91) 94 08/19/20 00:00 91 08/19/20 00:00 98.5 90 20 142/69 (93) 96 08/18/20 21:00 Nasal Cannula 2.0 08/18/20 20:00 102 08/18/20 20:00 98.8 102 18 142/77 (98) 97 08/18/20 16:00 105 08/18/20 16:00 97.9 104 19 140/75 (96) 95 08/18/20 12:00 112 08/18/20 12:00 98.0 103 22 140/75 (96) 97 08/18/20 09:00 Nasal Cannula 2.0 08/18/20 08:00 112 08/18/20 08:00 98.6 112 21 136/70 (92) 97 Height (Feet): 5 Height (Inches): 6.00 Weight (Pounds): 160 General Appearance: no acute distress Gen: NAD HEENT: NCAT, EOMI, PERRL CV: RRR Pulm: CTAB Abd: Soft, NTND Ext: No c/c/e Neuro: Awake Microbiology Date/Time Source Procedure Growth Status 08/18/20 16:02 Nasopharynx - Final Complete 08/18/20 16:02 Nasopharynx - Final Complete 08/18/20 13:10 Nasopharynx SARS-CoV-2 RdRp Gene Assay - Final Complete 08/17/20 13:40 Rectum Received 08/17/20 13:40 Nasal Nares MRSA Culture - Final NO METHICILLIN RESISTANT STAPH AUREUS... Complete 08/17/20 10:50 Urine,Clean Catch Urine Culture - Final NO GROWTH AFTER 48 HOURS Complete 08/17/20 10:00 Nasopharynx SARS-CoV-2 RdRp Gene Assay - Final Complete 08/17/20 10:00 Blood Blood Culture - Preliminary NO GROWTH AFTER 24 HOURS Resulted 08/17/20 09:50 Blood Blood Culture - Preliminary NO GROWTH AFTER 24 HOURS Resulted Laboratory Tests Test 08/18/20 11:55 08/18/20 16:00 08/18/20 17:05 08/18/20 21:27 POC Whole Blood Glucose 182 MG/DL (74-106) H 182 MG/DL (74-106) H Pending Urine Legionella Antigen Pending Test 08/19/20 07:05 White Blood Count 11.5 K/UL (4.8-10.8) H Red Blood Count 3.42 M/UL (4.70-6.10) L Hemoglobin 10.2 G/DL (14.2-18.0) L Hematocrit 32.3 % (42.0-52.0) L Mean Corpuscular Volume 94 FL (80-99) Mean Corpuscular Hemoglobin 29.8 PG (27.0-31.0) Mean Corpuscular Hemoglobin Concent 31.5 G/DL (32.0-36.0) L Red Cell Distribution Width 16.1 % (11.6-14.8) H Platelet Count 545 K/UL (150-450) H Mean Platelet Volume 4.7 FL (6.5-10.1) L Neutrophils (%) (Auto) 67.4 % (45.0-75.0) Lymphocytes (%) (Auto) 18.0 % (20.0-45.0) L Monocytes (%) (Auto) 10.6 % (1.0-10.0) H Eosinophils (%) (Auto) 3.2 % (0.0-3.0) H Basophils (%) (Auto) 0.9 % (0.0-2.0) Erythrocyte Sedimentation Rate Pending Sodium Level Pending Potassium Level Pending Chloride Level Pending Carbon Dioxide Level Pending Blood Urea Nitrogen Pending Creatinine Pending Estimat Glomerular Filtration Rate Pending Glucose Level Pending Calcium Level Pending Phosphorus Level Pending Magnesium Level Pending Total Bilirubin Pending Aspartate Amino Transf (AST/SGOT) Pending Alanine Aminotransferase (ALT/SGPT) Pending Alkaline Phosphatase Pending C-Reactive Protein, Quantitative Pending Total Protein Pending Albumin Pending Globulin Pending Current Medications Medications (Trade) Dose Ordered Sig/Jonny Route PRN Reason Start Time Stop Time Status Last Admin Dose Admin Acetaminophen (Tylenol) 650 mg Q4H PRN ORAL Temp >100.5 08/17/20 15:00 09/16/20 14:59 Albuterol/ Ipratropium (Albuterol/ Ipratropium) 3 ml Q4H PRN HHN Shortness of Breath 08/17/20 15:00 08/22/20 14:59 Cefepime HCl 2 gm/ Sodium Chloride 110 ml @ 220 mls/hr EVERY 12 HOURS IV 08/17/20 21:00 08/24/20 20:59 08/18/20 21:25 Dextrose (Dextrose 50%) 25 ml Q30M PRN IV Hypoglycemia 08/17/20 23:30 11/15/20 23:29 Dextrose (Dextrose 50%) 50 ml Q30M PRN IV Hypoglycemia 08/17/20 23:30 11/15/20 23:29 Heparin Sodium (Porcine) (Heparin 5000 units/ml) 5,000 units EVERY 12 HOURS SUBQ 08/17/20 21:00 10/01/20 20:59 08/18/20 21:26 Insulin Aspart (NovoLOG) BEFORE MEALS AND HS SUBQ 08/18/20 06:30 11/16/20 06:29 08/18/20 21:30 Lorazepam (Ativan 2mg/ml 1ml) 2 mg Q2H PRN IV For Anxiety 08/17/20 15:00 08/24/20 14:59 Ondansetron HCl (Zofran) 4 mg Q6H PRN IVP Nausea & Vomiting 08/17/20 15:00 09/16/20 14:59 Pantoprazole (Protonix) 40 mg DAILY ORAL 08/18/20 09:00 09/17/20 08:59 08/18/20 09:15 Polyethylene Glycol (Miralax) 17 gm DAILYPRN PRN ORAL Constipation 08/17/20 15:00 09/16/20 14:59 Promethazine HCl/ Codeine (Phenergan with Codeine) 5 ml Q4H PRN ORAL For Cough 08/17/20 15:00 09/16/20 14:59 Vancomycin HCl (Vanco pharmacy to dose) 1 ea DAILY PRN MISC . 08/17/20 15:00 09/16/20 14:59 Vancomycin HCl 1 gm/Sodium Chloride 275 ml @ 183.299 mls/hr Q12H IVPB 08/17/20 22:00 08/22/20 21:59 08/18/20 22:26 Aydee Barrera M.D. Aug 19, 2020 07:58
[2020-08-19 08:00] VITALS: BP 135/83
[2020-08-19 08:20] LABS: ALANINE AMINOTRANSFERASE 16 U/L (12-78); ALBUMIN/GLOBULIN RATIO 0.5 (1.0-2.7); ALKALINE PHOSPHATASE 94 U/L (46-116); ANION GAP 8 mmol/L (5-15); ASPARTATE AMINO TRANSFERASE 27 U/L (15-37); BILIRUBIN,TOTAL 0.4 MG/DL (0.2-1.0); BLOOD UREA NITROGEN 7 mg/dL (7-18); CALCIUM 8.5 MG/DL (8.5-10.1); CARBON DIOXIDE 29 MMOL/L (21-32); CHLORIDE 102 MMOL/L (98-107); CREATININE 0.8 MG/DL (0.55-1.30); PHOSPHORUS 3.3 MG/DL (2.5-4.9); POTASSIUM 3.6 MMOL/L (3.5-5.1); SODIUM 138 MMOL/L (136-145)
--- NOTE | 2020-08-19 08:47 | Diagnostic Imaging Report ---
EXAM: XR Chest, 1 View CLINICAL HISTORY: DYSPNEA TECHNIQUE: Frontal view of the chest. COMPARISON: 08/17/20 FINDINGS: Lungs: There are unchanged moderate mixed interstitial and alveolar infiltrates bilaterally most likely representing pulmonary edema. Pleural space: There are probable small bilateral pleural effusions. No pneumothorax. Heart: Unchanged cardiomegaly. Mediastinum: Unremarkable. Bones/joints: Unremarkable. IMPRESSION: There are unchanged moderate mixed interstitial and alveolar infiltrates bilaterally most likely representing pulmonary edema.
[2020-08-19] MEDS: Heparin 5000 units/ml inj SUBQ SCH ×2 (09:10→20:29)
[2020-08-19] MEDS: Cefepime HCl 2 GM in NS 110 ML IV SCH ×2 (09:10→20:29)
--- NOTE | 2020-08-19 10:00 | Pulmonology Progress Note ---
Subjective Allergies: Coded Allergies: No Known Allergies (Unverified , 08/17/20) Subjective afebrile, mild leukocytosis today some SOB, on O2 via NC no congestion Mg stable after replacement Objective Last 24 Hour Vital Signs Date Time Temp Pulse Resp B/P (MAP) Pulse Ox O2 Delivery O2 Flow Rate FiO2 08/19/20 04:00 89 08/19/20 04:00 98.5 90 18 127/74 (91) 94 08/19/20 00:00 91 08/19/20 00:00 98.5 90 20 142/69 (93) 96 08/18/20 21:00 Nasal Cannula 2.0 08/18/20 20:00 102 08/18/20 20:00 98.8 102 18 142/77 (98) 97 08/18/20 16:00 105 08/18/20 16:00 97.9 104 19 140/75 (96) 95 08/18/20 12:00 112 08/18/20 12:00 98.0 103 22 140/75 (96) 97 Intake and Output 08/18/20 08/19/20 19:00 07:00 Intake Total 480 ml Output Total 600 ml 800 ml Balance -120 ml -800 ml Intake Oral 480 ml Output Urine Total 600 ml 800 ml General Appearance: no acute distress, other - Vietnamese speaking male HEENT: normocephalic, atraumatic, anicteric, mucous membranes moist Respiratory: no respiratory distress, no accessory muscle use, other - few scattered rhonchi , islated bibasilar crackles Cardiovascular: normal rate, regular rhythm - SR on tele Abdomen: soft, non tender, non distended Extremities: no edema Skin: rash Neurologic: no motor/sensory deficits, alert, oriented x 3, responsive Musculoskeletal: normal muscle bulk Microbiology Date/Time Source Procedure Growth Status 08/18/20 16:02 Nasopharynx - Final Complete 08/18/20 16:02 Nasopharynx - Final Complete 08/18/20 13:10 Nasopharynx SARS-CoV-2 RdRp Gene Assay - Final Complete 08/17/20 13:40 Rectum VRE Culture - Final NO VANCOMYCIN RESISTANT ENTEROCOCCUS ... Complete 08/17/20 13:40 Rectum - Final NO CARBAPENEM-RESISTANT ENTEROBACTERI... Complete 08/17/20 13:40 Nasal Nares MRSA Culture - Final NO METHICILLIN RESISTANT STAPH AUREUS... Complete 08/17/20 10:50 Urine,Clean Catch Urine Culture - Final NO GROWTH AFTER 48 HOURS Complete 08/17/20 10:00 Nasopharynx SARS-CoV-2 RdRp Gene Assay - Final Complete 08/17/20 10:00 Blood Blood Culture - Preliminary NO GROWTH AFTER 24 HOURS Resulted 08/17/20 09:50 Blood Blood Culture - Preliminary NO GROWTH AFTER 24 HOURS Resulted Laboratory Tests 08/18/20 11:55: POC Whole Blood Glucose 182H 08/18/20 16:00: Urine Legionella Antigen [Pending] 08/18/20 17:05: POC Whole Blood Glucose 182H 08/18/20 21:27: POC Whole Blood Glucose [Pending] 08/19/20 07:05: White Blood Count 11.5H, Red Blood Count 3.42L, Hemoglobin 10.2L, Hematocrit 32.3L, Mean Corpuscular Volume 94, Mean Corpuscular Hemoglobin 29.8, Mean Corpuscular Hemoglobin Concent 31.5L, Red Cell Distribution Width 16.1H, Platelet Count 545H, Mean Platelet Volume 4.7L, Neutrophils (%) (Auto) 67.4, Lymphocytes (%) (Auto) 18.0L, Monocytes (%) (Auto) 10.6H, Eosinophils (%) (Auto) 3.2H, Basophils (%) (Auto) 0.9, Erythrocyte Sedimentation Rate 106H, Sodium Level 138, Potassium Level 3.6, Chloride Level 102, Carbon Dioxide Level 29, Anion Gap 8, Blood Urea Nitrogen 7, Creatinine 0.8, Estimat Glomerular Filtration Rate > 60, Glucose Level 136H, Calcium Level 8.5, Phosphorus Level 3.3, Magnesium Level 2.1, Total Bilirubin 0.4, Aspartate Amino Transf (AST/SGOT) 27, Alanine Aminotransferase (ALT/SGPT) 16, Alkaline Phosphatase 94, C-Reactive Protein, Quantitative 4.7H, Total Protein 5.9L, Albumin 2.0L, Globulin 3.9, Albumin/Globulin Ratio 0.5L Current Medications Medications (Trade) Dose Ordered Sig/Jonny Route PRN Reason Start Time Stop Time Status Last Admin Dose Admin Acetaminophen (Tylenol) 650 mg Q4H PRN ORAL Temp >100.5 08/17/20 15:00 09/16/20 14:59 Albuterol/ Ipratropium (Albuterol/ Ipratropium) 3 ml Q4H PRN HHN Shortness of Breath 08/17/20 15:00 08/22/20 14:59 Cefepime HCl 2 gm/ Sodium Chloride 110 ml @ 220 mls/hr EVERY 12 HOURS IV 08/17/20 21:00 08/24/20 20:59 08/19/20 09:10 Dextrose (Dextrose 50%) 25 ml Q30M PRN IV Hypoglycemia 08/17/20 23:30 11/15/20 23:29 Dextrose (Dextrose 50%) 50 ml Q30M PRN IV Hypoglycemia 08/17/20 23:30 11/15/20 23:29 Heparin Sodium (Porcine) (Heparin 5000 units/ml) 5,000 units EVERY 12 HOURS SUBQ 08/17/20 21:00 10/01/20 20:59 08/19/20 09:10 Insulin Aspart (NovoLOG) BEFORE MEALS AND HS SUBQ 08/18/20 06:30 11/16/20 06:29 08/18/20 21:30 Lorazepam (Ativan 2mg/ml 1ml) 2 mg Q2H PRN IV For Anxiety 08/17/20 15:00 08/24/20 14:59 Ondansetron HCl (Zofran) 4 mg Q6H PRN IVP Nausea & Vomiting 08/17/20 15:00 09/16/20 14:59 Pantoprazole (Protonix) 40 mg DAILY ORAL 08/18/20 09:00 09/17/20 08:59 08/19/20 09:10 Polyethylene Glycol (Miralax) 17 gm DAILYPRN PRN ORAL Constipation 08/17/20 15:00 09/16/20 14:59 Promethazine HCl/ Codeine (Phenergan with Codeine) 5 ml Q4H PRN ORAL For Cough 08/17/20 15:00 09/16/20 14:59 Assessment/Plan Assessment/Plan ASSESSMENT Sepsis Acute hypoxemic respiratory failure, requiring supplemental oxygen Pneumonia Recent history of COVID-19 (June 2020 ) History of CHF Hypertension Diabetes mellitus Anemia PLAN OF CARE tele O2 titrate to keep sat above 92% pulmonary toilet rapid COVID-19 x2 NGT, repeat COVID 19 by PCR NGT as well influenza screen NGT CXR with pulmonary congestion , possible pneumonia ECHO with pEF 65% monitor volumes abx as per ID aspiration precautions fup CXR on Friday a/ive prn Venous duplex DVT prophylaxis monitor BP BS management with SSI GI prophylaxis monitor H&H with goal to keep Hgb >7 supportive care case discussed and evaluated by supervising physician Ele Cornelius NP Aug 19, 2020 10:00
--- NOTE | 2020-08-19 10:25 | NUR ---
CASE MANAGEMENT:REVIEW 08/19/20 SI; SEPSIS. PNA 98.5 90 18 127/74 94% ON 2L/NC WBC+11.5 ESR+106 IS: IV CEFEPIME Q12 HEPARIN SQ Q12 : TELEMETRY ~ TRANSFER TO [facility] DCP: [facility]
--- NOTE | 2020-08-19 10:50 | Diagnostic Imaging Report ---
EXAM: US Duplex Bilateral Lower Extremities Veins CLINICAL HISTORY: Shortness of breath TECHNIQUE: Real-time duplex ultrasound scan of the bilateral lower extremity veins integrating B-mode two-dimensional vascular structure, Doppler spectral analysis, color flow Doppler imaging and compression. COMPARISON: No relevant prior studies available. FINDINGS: Right deep veins: Unremarkable. No DVT in the right common femoral, femoral, proximal deep femoral or popliteal veins. The veins demonstrate normal color flow, are normally compressible, with normal phasic flow and/or augmentation response. Left deep veins: Unremarkable. No DVT in the left common femoral, femoral, proximal deep femoral or popliteal veins. The veins demonstrate normal color flow, are normally compressible, with normal phasic flow and/or augmentation response. Soft tissues: No popliteal cyst. IMPRESSION: No evidence of DVT in the visualized venous segments of bilateral lower extremities.
[2020-08-19 12:00] VITALS: BP 141/75
[2020-08-19 16:20] VITALS: BP 154/74
--- NOTE | 2020-08-19 16:20 | NUR ---
TRANSFER TO FLOOR: Patient transferred to [facility] ([facility]), per Ele Cornelius ([employer]) order. Report given to Elis/BERNADINE. Belongings and medications given to receiving nurse. Patient brought Iphone with bleach range operator. Called family member to check if they have patient's phone. Family stated, they don't have it, Son said he spoke with patient yesterday with his cell phone (Iphone). Patient's Iphone missing at this moment. Will do incident report. Family (Quirino) informed of transfer. Patient is in stable condition. Endorsed plan of care.
--- NOTE | 2020-08-19 16:30 | NUR ---
NURSE NOTES: Received patient from Crista COLINDRES. Transferred from [facility] to [facility] via hospital bed. Stable. Breathing is labored on 2L oxygen via nc. Patient high fowlers. Patient oriented to room, call light, and unit. Patient instructed to use call light for assistance, verbalized understanding. Patient's belongings checked with Crista COLINDRES. Femoral line dressing changed. Sacral wound dressing changed. Patient is in bed in locked and lowest position with call light within reach. All needs met at this time. All safety measures provided, bed alarm on, fall prevention teaching given-patient verbalized understanding. Will continue to monitor.
--- NOTE | 2020-08-19 16:36 | Internal Med Progress Note ---
Subjective Date of Service: Aug 19, 2020 Physician Name Dimitri Lynch Attending Physician Rc Evans MD Current Medications Medications (Trade) Dose Ordered Sig/Jonny Route PRN Reason Start Time Stop Time Status Last Admin Dose Admin Acetaminophen (Tylenol) 650 mg Q4H PRN ORAL Temp >100.5 08/17/20 15:00 09/16/20 14:59 Albuterol/ Ipratropium (Albuterol/ Ipratropium) 3 ml Q4H PRN HHN Shortness of Breath 08/17/20 15:00 08/22/20 14:59 Cefepime HCl 2 gm/ Sodium Chloride 110 ml @ 220 mls/hr EVERY 12 HOURS IV 08/17/20 21:00 08/24/20 20:59 08/19/20 09:10 Dextrose (Dextrose 50%) 25 ml Q30M PRN IV Hypoglycemia 08/17/20 23:30 11/15/20 23:29 Dextrose (Dextrose 50%) 50 ml Q30M PRN IV Hypoglycemia 08/17/20 23:30 11/15/20 23:29 Heparin Sodium (Porcine) (Heparin 5000 units/ml) 5,000 units EVERY 12 HOURS SUBQ 08/17/20 21:00 10/01/20 20:59 08/19/20 09:10 Insulin Aspart (NovoLOG) BEFORE MEALS AND HS SUBQ 08/18/20 06:30 11/16/20 06:29 08/19/20 12:08 Lorazepam (Ativan 2mg/ml 1ml) 2 mg Q2H PRN IV For Anxiety 08/17/20 15:00 08/24/20 14:59 Ondansetron HCl (Zofran) 4 mg Q6H PRN IVP Nausea & Vomiting 08/17/20 15:00 09/16/20 14:59 Pantoprazole (Protonix) 40 mg DAILY ORAL 08/18/20 09:00 09/17/20 08:59 08/19/20 09:10 Polyethylene Glycol (Miralax) 17 gm DAILYPRN PRN ORAL Constipation 08/17/20 15:00 09/16/20 14:59 Promethazine HCl/ Codeine (Phenergan with Codeine) 5 ml Q4H PRN ORAL For Cough 08/17/20 15:00 09/16/20 14:59 Allergies: Coded Allergies: No Known Allergies (Unverified , 08/17/20) ROS Limited/Unobtainable: No Constitutional: Reports: no symptoms HEENT: Reports: no symptoms Cardiovascular: Reports: no symptoms Respiratory: Reports: shortness of breath Gastrointestinal/Abdominal: Reports: no symptoms Genitourinary: Reports: no symptoms Neurologic/Psychiatric: Reports: no symptoms Subjective 60 YO M admitted with shortness of breath. Now pulmonary edema and pneumonia. Cover for Int Aurelio-Dr Evans Objective Last Vital Signs Date Time Temp Pulse Resp B/P (MAP) Pulse Ox O2 Delivery O2 Flow Rate FiO2 08/19/20 12:00 97.9 106 20 141/75 (97) 94 08/19/20 09:00 Nasal Cannula 2.0 Laboratory Tests Test 08/18/20 17:05 08/18/20 21:27 08/19/20 07:05 POC Whole Blood Glucose 182 MG/DL (74-106) H Pending White Blood Count 11.5 K/UL (4.8-10.8) H Red Blood Count 3.42 M/UL (4.70-6.10) L Hemoglobin 10.2 G/DL (14.2-18.0) L Hematocrit 32.3 % (42.0-52.0) L Mean Corpuscular Volume 94 FL (80-99) Mean Corpuscular Hemoglobin 29.8 PG (27.0-31.0) Mean Corpuscular Hemoglobin Concent 31.5 G/DL (32.0-36.0) L Red Cell Distribution Width 16.1 % (11.6-14.8) H Platelet Count 545 K/UL (150-450) H Mean Platelet Volume 4.7 FL (6.5-10.1) L Neutrophils (%) (Auto) 67.4 % (45.0-75.0) Lymphocytes (%) (Auto) 18.0 % (20.0-45.0) L Monocytes (%) (Auto) 10.6 % (1.0-10.0) H Eosinophils (%) (Auto) 3.2 % (0.0-3.0) H Basophils (%) (Auto) 0.9 % (0.0-2.0) Erythrocyte Sedimentation Rate 106 MM/HR (0-20) H Sodium Level 138 MMOL/L (136-145) Potassium Level 3.6 MMOL/L (3.5-5.1) Chloride Level 102 MMOL/L (98-107) Carbon Dioxide Level 29 MMOL/L (21-32) Anion Gap 8 mmol/L (5-15) Blood Urea Nitrogen 7 mg/dL (7-18) Creatinine 0.8 MG/DL (0.55-1.30) Estimat Glomerular Filtration Rate > 60 mL/min (>60) Glucose Level 136 MG/DL (74-106) H Calcium Level 8.5 MG/DL (8.5-10.1) Phosphorus Level 3.3 MG/DL (2.5-4.9) Magnesium Level 2.1 MG/DL (1.8-2.4) Total Bilirubin 0.4 MG/DL (0.2-1.0) Aspartate Amino Transf (AST/SGOT) 27 U/L (15-37) Alanine Aminotransferase (ALT/SGPT) 16 U/L (12-78) Alkaline Phosphatase 94 U/L (46-116) C-Reactive Protein, Quantitative 4.7 mg/dL (0.00-0.90) H Total Protein 5.9 G/DL (6.4-8.2) L Albumin 2.0 G/DL (3.4-5.0) L Globulin 3.9 g/dL Albumin/Globulin Ratio 0.5 (1.0-2.7) L Microbiology Date/Time Source Procedure Growth Status 08/18/20 16:02 Nasopharynx - Final Complete 08/18/20 16:02 Nasopharynx - Final Complete 08/18/20 13:10 Nasopharynx SARS-CoV-2 RdRp Gene Assay - Final Complete 08/17/20 13:40 Rectum VRE Culture - Final NO VANCOMYCIN RESISTANT ENTEROCOCCUS ... Complete 08/17/20 13:40 Rectum - Final NO CARBAPENEM-RESISTANT ENTEROBACTERI... Complete 08/17/20 13:40 Nasal Nares MRSA Culture - Final NO METHICILLIN RESISTANT STAPH AUREUS... Complete 08/17/20 10:50 Urine,Clean Catch Urine Culture - Final NO GROWTH AFTER 48 HOURS Complete 08/17/20 10:00 Nasopharynx SARS-CoV-2 RdRp Gene Assay - Final Complete 08/17/20 10:00 Blood Blood Culture - Preliminary NO GROWTH AFTER 24 HOURS Resulted 08/17/20 09:50 Blood Blood Culture - Preliminary NO GROWTH AFTER 24 HOURS Resulted Intake and Output 08/18/20 08/19/20 19:00 07:00 Intake Total 480 ml Output Total 600 ml 800 ml Balance -120 ml -800 ml Intake Oral 480 ml Output Urine Total 600 ml 800 ml Objective PHYSICAL EXAMINATION: GENERAL: The patient is awake, responsive, no acute distress. HEAD AND NECK: Pupils are equal and reactive to light. Extraocular movements intact. NECK: Supple. No JVD. LUNGS: Good air entry. No wheezing or rales. HEART: S1, S2. Tachycardic. No murmur or gallops. ABDOMEN: Soft, nondistended, nontender. Positive bowel sounds. Mildly obese extremities. No cyanosis, clubbing, edema. NEUROLOGIC: breaker boss II to XII grossly intact. Motor is 5+, symmetric. Gait was not assessed due to the patient's status. RECTAL AND GENITOURINARY: Refused and deferred. PSYCHIATRIC: Mood and affect are intact. Assessment/Plan Assessment/Plan ASSESSMENT: 1. Shortness of breath, possible pneumonia. 2. Leukocytosis, possibly due to pneumonia. 3. Hypertension. 4. Diabetes type 2. 5. Obesity. 6. Hypoxemia. 7. History of COVID-19 infection in June 2020. PLAN: 1. Admit the patient to monitored unit. 2. antibiotics = vancomycin and cefepime. 3. Code status is fullcode. 4. DVT prophylaxis, heparin subcu. 5. Pulmonary consultation = Dr. Herbert. Dimitri Lynch MD Aug 19, 2020 16:36
--- NOTE | 2020-08-19 19:22 | NUR ---
NURSE NOTES: received pt and report from BERNADINE Gillis. pt alert and oriented x 4. pt with labored breathing. will monitor O2 sats and breath sounds. pt with no complaint of pain. lopez patent and draining. iv site clean dry and intact and hep locked. central line dressing clean dry and intact and capped. plan of care discussed. Addendum: 08/19/20 at 1927 by Shaji Manriquez RN sacral stage 3 wound covered with optifoam and is clean dry and intact.
--- NOTE | 2020-08-19 19:23 | NUR ---
NURSE HAND-OFF: Important Events on Shift: transfer to , reposition, BS monitoring Patient Status: stable Diet: ccho med Pending Orders: n/a Pending Results/Labs:n/a Pending MD notification:n/a Latest Vital Signs: Temperature 98.3 , Pulse 104 , B/P 154 /74 , Respiratory Rate 24 , O2 SAT 91 , Nasal Cannula, O2 Flow Rate 2.0 . Vital Sign Comment: n/a Latest Beltrán Fall Score: 35 Fall Risk: Medium Risk Safety Measures: Call light Within Reach, Side Rails x2, Bed position Low and Locked. Fall Precautions: Yellow Socks Yellow Gown Door Sign Patient Fall Education Report given to Shaji COLINDRES.
--- NOTE | 2020-08-19 19:45 | NUR ---
NURSE NOTES: pt with labored breathing with 02 satting at 95 to 100 on 2 liters O2. pt is not distressed. lung sounds revealed plumonary crackles at the lower left and right lobs. will continue to monitor breathing status and O2 status.
[2020-08-19 20:00] VITALS: BP 151/77
--- NOTE | 2020-08-19 22:34 | NUR ---
NURSE NOTES: pt 02 sat at 95-99 on 2 liters Oxygen. decreased oxygen to 1 liter and pt started satting at 91 to 92. increased again to 2 liters oxygen to maintain O2 saturation over 92 as ordered. patient in no acute distress and stable. pt is currently asleep.
[2020-08-20] VITALS: BP 132/73
--- NOTE | 2020-08-20 01:07 | NUR ---
NURSE NOTES: pt started coughing and O2 sat levels dropped to 87. pt asked for water to clear throat. After giving water, HOB was raised. RT notified for PRN nebulizer treatment. Will follow up. O2 sat currently 93 and pt cough has decreased.
[2020-08-20] MEDS: Albuterol/Ipratropium 3ml neb HHN PRN (01:26)
--- NOTE | 2020-08-20 01:41 | NUR ---
NURSE NOTES: RT finished nebulizer treatment. pt now with O2 sat of 98 and HR of 92 on 2 liters of O2. patient currently asleep, no s/s of distress and no cough. will continue to monitor.
[2020-08-20 04:00] VITALS: BP 143/79
[2020-08-20 05:51] LABS: BASOPHILS % (AUTO) 0.9 % (0.0-2.0); EOSINOPHILS % (AUTO) 3.4 % (0.0-3.0); HEMATOCRIT 31.7 % (42.0-52.0); HEMOGLOBIN 9.9 G/DL (14.2-18.0); LYMPHOCYTES % (AUTO) 23.2 % (20.0-45.0); MEAN CORPUSCULAR VOLUME 94 FL (80-99); MONOCYTES % (AUTO) 9.7 % (1.0-10.0); NEUTROPHILS % (AUTO) 62.9 % (45.0-75.0); PLATELET COUNT 519 K/UL (150-450); RED BLOOD COUNT 3.36 M/UL (4.70-6.10); RED CELL DISTRIBUTION WIDTH 15.9 % (11.6-14.8); WHITE BLOOD COUNT 10.9 K/UL (4.8-10.8)
[2020-08-20] MEDS: NovoLOG Insulin Flexpen SUBQ SCH ×4 (05:52→20:48)
[2020-08-20 06:14] LABS: ANION GAP 7 mmol/L (5-15); BLOOD UREA NITROGEN 9 mg/dL (7-18); CALCIUM 8.5 MG/DL (8.5-10.1); CARBON DIOXIDE 28 MMOL/L (21-32); CHLORIDE 102 MMOL/L (98-107); CREATININE 0.8 MG/DL (0.55-1.30); POTASSIUM 3.3 MMOL/L (3.5-5.1); SODIUM 137 MMOL/L (136-145)
--- NOTE | 2020-08-20 07:40 | NUR ---
NURSE HAND-OFF: Important Events on Shift:O2 saturation monitoring, heart rate monitoring Patient Status: stable Diet: consistent carb Pending Orders: NA Pending Results/Labs:NA Pending MD notification: potassium 3.3 Latest Vital Signs: Temperature 98.3 , Pulse 94 , B/P 143 /79 , Respiratory Rate 20 , O2 SAT 96 , Nasal Cannula, O2 Flow Rate 2.0 . Vital Sign Comment: stable through the shift Latest Beltrán Fall Score: 35 Fall Risk: Medium Risk Safety Measures: Call light Within Reach, Bed Alarm Zone 1, Side Rails Side Rails x2, Bed position Low and Locked. Fall Precautions: Yellow Socks Yellow Gown Door Sign Patient Fall Education Report given to BERNADINE Gillis.
--- NOTE | 2020-08-20 07:43 | NUR ---
NURSE NOTES: Patient is in bed awake and able to verbalize needs. Stable. Breathing is labored on 2L oxygen via nc. Patient instructed to use call light for assistance, verbalized understanding. All needs met at this time. All safety measures provided. Will continue to monitor.
[2020-08-20 08:00] VITALS: BP 156/79
[2020-08-20] MEDS ORDERED: Ipratropium 0.02% Inh Soln 2.5ml UD HHN PRN (08:30)
[2020-08-20] MEDS: Cefepime HCl 2 GM in NS 110 ML IV SCH ×2 (08:30→20:37)
[2020-08-20] MEDS: Heparin 5000 units/ml inj SUBQ SCH ×2 (08:30→20:36)
--- NOTE | 2020-08-20 10:07 | Pulmonology Progress Note ---
Subjective ROS Limited/Unobtainable: No Allergies: Coded Allergies: No Known Allergies (Unverified , 08/17/20) Subjective transferred to [facility] floor afebrile, leukocytosis trending down on O2 via NC no congestion K-3.3 Objective Last 24 Hour Vital Signs Date Time Temp Pulse Resp B/P (MAP) Pulse Ox O2 Delivery O2 Flow Rate FiO2 08/20/20 08:00 98.6 95 26 156/79 (104) 94 08/20/20 04:00 98.3 94 20 143/79 (100) 96 08/20/20 01:31 89 18 100 Nasal Cannula 2.0 28 94 18 96 08/20/20 01:26 94 18 96 Nasal Cannula 2.0 28 08/20/20 00:00 98.6 94 19 132/73 (92) 99 08/19/20 21:00 Nasal Cannula 2.0 08/19/20 20:00 97.4 105 20 151/77 (101) 98 08/19/20 16:20 98.3 104 24 154/74 (100) 91 08/19/20 12:00 97.9 106 20 141/75 (97) 94 08/19/20 12:00 105 Intake and Output 08/19/20 08/20/20 19:00 07:00 Intake Total 240 ml Output Total 550 ml Balance -310 ml Intake Oral 240 ml Output Urine Total 550 ml General Appearance: no acute distress, other - Norwegian speaking male HEENT: normocephalic, atraumatic, anicteric, mucous membranes moist Respiratory: no respiratory distress, no accessory muscle use, other - few scattered rhonchi , islated bibasilar crackles Cardiovascular: normal rate, regular rhythm Abdomen: soft, non tender, non distended Extremities: no edema Skin: rash Neurologic: no motor/sensory deficits, alert, oriented x 3, responsive Musculoskeletal: normal muscle bulk Microbiology Date/Time Source Procedure Growth Status 08/18/20 16:02 Nasopharynx - Final Complete 08/18/20 16:02 Nasopharynx - Final Complete 08/18/20 13:10 Nasopharynx SARS-CoV-2 RdRp Gene Assay - Final Complete 08/17/20 13:40 Rectum VRE Culture - Final NO VANCOMYCIN RESISTANT ENTEROCOCCUS ... Complete 08/17/20 13:40 Rectum - Final NO CARBAPENEM-RESISTANT ENTEROBACTERI... Complete 08/17/20 13:40 Nasal Nares MRSA Culture - Final NO METHICILLIN RESISTANT STAPH AUREUS... Complete 08/17/20 10:50 Urine,Clean Catch Urine Culture - Final NO GROWTH AFTER 48 HOURS Complete Laboratory Tests 08/19/20 16:46: POC Whole Blood Glucose [Pending] 08/19/20 20:41: POC Whole Blood Glucose 155H 08/20/20 05:05: White Blood Count 10.9H, Red Blood Count 3.36L, Hemoglobin 9.9L, Hematocrit 31.7L, Mean Corpuscular Volume 94, Mean Corpuscular Hemoglobin 29.4, Mean Corpuscular Hemoglobin Concent 31.2L, Red Cell Distribution Width 15.9H, Platelet Count 519H, Mean Platelet Volume 4.8L, Neutrophils (%) (Auto) 62.9, Lymphocytes (%) (Auto) 23.2, Monocytes (%) (Auto) 9.7, Eosinophils (%) (Auto) 3.4H, Basophils (%) (Auto) 0.9, Sodium Level 137, Potassium Level 3.3L, Chloride Level 102, Carbon Dioxide Level 28, Anion Gap 7, Blood Urea Nitrogen 9, Creatinine 0.8, Estimat Glomerular Filtration Rate > 60, Glucose Level 151H, Calcium Level 8.5 08/20/20 05:49: POC Whole Blood Glucose 138H Current Medications Medications (Trade) Dose Ordered Sig/Jonny Route PRN Reason Start Time Stop Time Status Last Admin Dose Admin Acetaminophen (Tylenol) 650 mg Q4H PRN ORAL Temp >100.5 08/17/20 15:00 09/16/20 14:59 Albuterol/ Ipratropium (Albuterol/ Ipratropium) 3 ml Q4H PRN HHN Shortness of Breath 08/17/20 15:00 08/22/20 14:59 08/20/20 01:26 Cefepime HCl 2 gm/ Sodium Chloride 110 ml @ 220 mls/hr EVERY 12 HOURS IV 08/17/20 21:00 08/24/20 20:59 08/20/20 08:30 Dextrose (Dextrose 50%) 25 ml Q30M PRN IV Hypoglycemia 08/17/20 23:30 11/15/20 23:29 Dextrose (Dextrose 50%) 50 ml Q30M PRN IV Hypoglycemia 08/17/20 23:30 11/15/20 23:29 Heparin Sodium (Porcine) (Heparin 5000 units/ml) 5,000 units EVERY 12 HOURS SUBQ 08/17/20 21:00 10/01/20 20:59 08/20/20 08:30 Insulin Aspart (NovoLOG) BEFORE MEALS AND HS SUBQ 08/18/20 06:30 11/16/20 06:29 08/19/20 20:44 Ipratropium [place] (Atrovent) 500 mcg Q4H PRN HHN Shortness of Breath 08/20/20 08:30 08/25/20 08:29 Lorazepam (Ativan 2mg/ml 1ml) 2 mg Q2H PRN IV For Anxiety 08/17/20 15:00 08/24/20 14:59 Ondansetron HCl (Zofran) 4 mg Q6H PRN IVP Nausea & Vomiting 08/17/20 15:00 09/16/20 14:59 Pantoprazole (Protonix) 40 mg DAILY ORAL 08/18/20 09:00 09/17/20 08:59 08/20/20 08:30 Polyethylene Glycol (Miralax) 17 gm DAILYPRN PRN ORAL Constipation 08/17/20 15:00 09/16/20 14:59 Promethazine HCl/ Codeine (Phenergan with Codeine) 5 ml Q4H PRN ORAL For Cough 08/17/20 15:00 09/16/20 14:59 08/20/20 08:24 Assessment/Plan Assessment/Plan ASSESSMENT Sepsis Acute hypoxemic respiratory failure, requiring supplemental oxygen Pneumonia Recent history of COVID-19 (June 2020 ) History of CHF Hypertension Diabetes mellitus Anemia Hypokalemia PLAN OF CARE MS floor O2 titrate to keep sat above 92% pulmonary toilet rapid COVID-19 x2 NGT, repeat COVID 19 by PCR NGT as well influenza screen NGT CXR with pulmonary congestion , possible pneumonia ECHO with pEF 65% monitor volumes abx as per ID aspiration precautions fup CXR on Friday/ive prn Venous duplex BLE NGT DVT prophylaxis monitor BP edematous, at home on Lasix bid will give one dose Lasix today BS management with SSI GI prophylaxis monitor H&H with goal to keep Hgb >7 replace K, check K in am supportive care case discussed and evaluated by supervising physician Ele Cornelius NP Aug 20, 2020 10:06
--- NOTE | 2020-08-20 11:22 | NUR ---
CASE MANAGEMENT:REVIEW 08/20/20 SI; SEPSIS. PNA 98.6 26 156/79 94% ON 2L/NC WBC+10.9 H/H-9.9 K-3.3 [id number] IS: IV CEFEPIME Q12 HEPARIN SQ Q12 PROTONIX PO QD DUONEB HHN Q4HRS PRN : MED/SURG STATUS DCP: [facility]
[2020-08-20 12:00] VITALS: BP 150/76
--- NOTE | 2020-08-20 14:38 | Internal Med Progress Note ---
Subjective Date of Service: Aug 20, 2020 Physician Name CrisDimitri Attending Physician Rc Evans MD Current Medications Medications (Trade) Dose Ordered Sig/Jonny Route PRN Reason Start Time Stop Time Status Last Admin Dose Admin Acetaminophen (Tylenol) 650 mg Q4H PRN ORAL Temp >100.5 08/17/20 15:00 09/16/20 14:59 Albuterol/ Ipratropium (Albuterol/ Ipratropium) 3 ml Q4H PRN HHN Shortness of Breath 08/17/20 15:00 08/22/20 14:59 08/20/20 01:26 Cefepime HCl 2 gm/ Sodium Chloride 110 ml @ 220 mls/hr EVERY 12 HOURS IV 08/17/20 21:00 08/24/20 20:59 08/20/20 08:30 Dextrose (Dextrose 50%) 25 ml Q30M PRN IV Hypoglycemia 08/17/20 23:30 11/15/20 23:29 Dextrose (Dextrose 50%) 50 ml Q30M PRN IV Hypoglycemia 08/17/20 23:30 11/15/20 23:29 Heparin Sodium (Porcine) (Heparin 5000 units/ml) 5,000 units EVERY 12 HOURS SUBQ 08/17/20 21:00 10/01/20 20:59 08/20/20 08:30 Insulin Aspart (NovoLOG) BEFORE MEALS AND HS SUBQ 08/18/20 06:30 11/16/20 06:29 08/20/20 12:15 Ipratropium [place] (Atrovent) 500 mcg Q4H PRN HHN Shortness of Breath 08/20/20 08:30 08/25/20 08:29 Lorazepam (Ativan 2mg/ml 1ml) 2 mg Q2H PRN IV For Anxiety 08/17/20 15:00 08/24/20 14:59 Ondansetron HCl (Zofran) 4 mg Q6H PRN IVP Nausea & Vomiting 08/17/20 15:00 09/16/20 14:59 Pantoprazole (Protonix) 40 mg DAILY ORAL 08/18/20 09:00 09/17/20 08:59 08/20/20 08:30 Polyethylene Glycol (Miralax) 17 gm DAILYPRN PRN ORAL Constipation 08/17/20 15:00 09/16/20 14:59 Promethazine HCl/ Codeine (Phenergan with Codeine) 5 ml Q4H PRN ORAL For Cough 08/17/20 15:00 09/16/20 14:59 08/20/20 08:24 Allergies: Coded Allergies: No Known Allergies (Unverified , 08/17/20) ROS Limited/Unobtainable: No Constitutional: Reports: no symptoms HEENT: Reports: no symptoms Respiratory: Reports: shortness of breath Gastrointestinal/Abdominal: Reports: no symptoms Genitourinary: Reports: no symptoms Neurologic/Psychiatric: Reports: no symptoms Subjective 60 YO M admitted with shortness of breath. Now pulmonary edema and pneumonia. Cover for Int Aurelio-Dr Evans Objective Last Vital Signs Date Time Temp Pulse Resp B/P (MAP) Pulse Ox O2 Delivery O2 Flow Rate FiO2 08/20/20 12:00 98.6 98 24 150/76 (100) 93 08/20/20 09:00 Nasal Cannula 2.0 08/20/20 01:31 28 Laboratory Tests Test 08/19/20 16:46 08/19/20 20:41 08/20/20 05:05 08/20/20 05:49 POC Whole Blood Glucose Pending 155 MG/DL (74-106) H 138 MG/DL (74-106) H White Blood Count 10.9 K/UL (4.8-10.8) H Red Blood Count 3.36 M/UL (4.70-6.10) L Hemoglobin 9.9 G/DL (14.2-18.0) L Hematocrit 31.7 % (42.0-52.0) L Mean Corpuscular Volume 94 FL (80-99) Mean Corpuscular Hemoglobin 29.4 PG (27.0-31.0) Mean Corpuscular Hemoglobin Concent 31.2 G/DL (32.0-36.0) L Red Cell Distribution Width 15.9 % (11.6-14.8) H Platelet Count 519 K/UL (150-450) H Mean Platelet Volume 4.8 FL (6.5-10.1) L Neutrophils (%) (Auto) 62.9 % (45.0-75.0) Lymphocytes (%) (Auto) 23.2 % (20.0-45.0) Monocytes (%) (Auto) 9.7 % (1.0-10.0) Eosinophils (%) (Auto) 3.4 % (0.0-3.0) H Basophils (%) (Auto) 0.9 % (0.0-2.0) Sodium Level 137 MMOL/L (136-145) Potassium Level 3.3 MMOL/L (3.5-5.1) L Chloride Level 102 MMOL/L (98-107) Carbon Dioxide Level 28 MMOL/L (21-32) Anion Gap 7 mmol/L (5-15) Blood Urea Nitrogen 9 mg/dL (7-18) Creatinine 0.8 MG/DL (0.55-1.30) Estimat Glomerular Filtration Rate > 60 mL/min (>60) Glucose Level 151 MG/DL (74-106) H Calcium Level 8.5 MG/DL (8.5-10.1) Microbiology Date/Time Source Procedure Growth Status 08/18/20 16:02 Nasopharynx - Final Complete 08/18/20 16:02 Nasopharynx - Final Complete 08/18/20 13:10 Nasopharynx SARS-CoV-2 RdRp Gene Assay - Final Complete Intake and Output 08/19/20 08/20/20 19:00 07:00 Intake Total 240 ml Output Total 550 ml Balance -310 ml Intake Oral 240 ml Output Urine Total 550 ml Objective PHYSICAL EXAMINATION: GENERAL: The patient is awake, responsive, no acute distress. HEAD AND NECK: Pupils are equal and reactive to light. Extraocular movements intact. NECK: Supple. No JVD. LUNGS: Good air entry. No wheezing or rales. HEART: S1, S2. Tachycardic. No murmur or gallops. ABDOMEN: Soft, nondistended, nontender. Positive bowel sounds. Mildly obese extremities. No cyanosis, clubbing, edema. NEUROLOGIC: clutch operator II to XII grossly intact. Motor is 5+, symmetric. Gait was not assessed due to the patient's status. RECTAL AND GENITOURINARY: Refused and deferred. PSYCHIATRIC: Mood and affect are intact. Assessment/Plan Assessment/Plan ASSESSMENT: 1. Shortness of breath, possible pneumonia. 2. Leukocytosis, possibly due to pneumonia. 3. Hypertension. 4. Diabetes type 2. 5. Obesity. 6. Hypoxemia. 7. History of COVID-19 infection in June 2020. PLAN: 1. Admit the patient to monitored unit. 2. antibiotics = vancomycin. S/P cefepime 3. Code status is fullcode. 4. DVT prophylaxis, heparin subcu. 5. Pulmonary consultation = Dr. Herbert. Dimitri Lynch MD Aug 20, 2020 14:38
[2020-08-20 16:00] VITALS: BP 150/79
--- NOTE | 2020-08-20 19:14 | NUR ---
NURSE HAND-OFF: Important Events on Shift: lasix x1, bm x1 Patient Status: stable Diet: ccho med Pending Orders: n/a Pending Results/Labs:n/a Pending MD notification:n/a Latest Vital Signs: Temperature 98.6 , Pulse 104 , B/P 150 /79 , Respiratory Rate 24 , O2 SAT 92 , Nasal Cannula, O2 Flow Rate 2.0 . Vital Sign Comment: n/a Latest Beltrán Fall Score: 35 Fall Risk: Medium Risk Safety Measures: Call light Within Reach, Side Rails x2, Bed position Low and Locked. Fall Precautions: Yellow Socks Yellow Gown Door Sign Patient Fall Education Report given to Shaji COLINDRES.
--- NOTE | 2020-08-20 19:15 | NUR ---
NURSE NOTES: received pt and report from BERNADINE Gillis. patient alert and oriented x 4 in no acute distress but with slightly labored breathing. No pain complaint. Central line noted clean dry and intact. IV site clean dry and intact and hep locked. Beatriz clien. Plan of care discussed. Addendum: 08/20/20 at 1917 by Shaji Manriquez RN sacral dressing clean dry and intact.
[2020-08-20 20:00] VITALS: BP 143/77
[2020-08-21] VITALS: BP 142/89
--- NOTE | 2020-08-21 00:17 | NUR ---
NURSE NOTES: vital signs stable, pt occasionally running tachycardic especially when turned and repositioned in bed. pt with slightly labored breathing but O2 saturations have been consistently above 92% on 2 liters of oxygen. will continue to monitor pt oxygen saturation levels. pt currently asleep and in no acute distress.
[2020-08-21 04:00] VITALS: BP 143/87
--- NOTE | 2020-08-21 04:26 | NUR ---
NURSE NOTES: pt in no acute distress. Vital signs stable. pt O2 sat has been ranging from 93 to 98 throughout the shift. pt becomes slightly tachycardic and drops in 02 saturation during turning and repositioning but stabilizes once in position. pt denies pain and is in no acute distress. Will continue to monitor.
[2020-08-21] MEDS: NovoLOG Insulin Flexpen SUBQ SCH ×4 (05:53→22:53)
[2020-08-21 06:37] LABS: EOSINOPHILS % (AUTO) 4.8 % (0.0-3.0); HEMATOCRIT 32.7 % (42.0-52.0); HEMOGLOBIN 10.4 G/DL (14.2-18.0); LYMPHOCYTES % (AUTO) 24.3 % (20.0-45.0); MEAN CORPUSCULAR VOLUME 94 FL (80-99); MONOCYTES % (AUTO) 12.5 % (1.0-10.0); NEUTROPHILS % (AUTO) 57.5 % (45.0-75.0); PLATELET COUNT 492 K/UL (150-450); RED BLOOD COUNT 3.48 M/UL (4.70-6.10); RED CELL DISTRIBUTION WIDTH 16.1 % (11.6-14.8); WHITE BLOOD COUNT 9.2 K/UL (4.8-10.8)
[2020-08-21 06:49] LABS: ANION GAP 7 mmol/L (5-15); BLOOD UREA NITROGEN 8 mg/dL (7-18); CALCIUM 9.2 MG/DL (8.5-10.1); CARBON DIOXIDE 30 MMOL/L (21-32); CHLORIDE 100 MMOL/L (98-107); CREATININE 0.9 MG/DL (0.55-1.30); POTASSIUM 3.8 MMOL/L (3.5-5.1); SODIUM 136 MMOL/L (136-145)
--- NOTE | 2020-08-21 07:55 | NUR ---
NURSE HAND-OFF: Important Events on Shift: O2 and HR monitoring, urine output monitoring Patient Status: stable this shift Diet: consistent carb Pending Orders: NA Pending Results/Labs:NA Pending MD notification:NA Latest Vital Signs: Temperature 98.4 , Pulse 97 , B/P 143 /87 , Respiratory Rate 20 , O2 SAT 97 , Nasal Cannula, O2 Flow Rate 2.0 . Vital Sign Comment: stable through the shift Latest Beltrán Fall Score: 35 Fall Risk: Medium Risk Safety Measures: Call light Within Reach, Bed Alarm Zone 1, Side Rails Side Rails x2, Bed position Low and Locked. Fall Precautions: Yellow Socks Yellow Gown Door Sign Patient Fall Education Report given to BERNADINE Ferrer.
[2020-08-21 08:00] VITALS: BP 144/84
--- NOTE | 2020-08-21 08:00 | NUR ---
NURSE NOTES: Received report from Shaji COLINDRES. Patient is asleep during rounds, in no apparent distress, on 2L NC, on continuous pulseox monitoring, saturating 95-97%. [place] to gravity drainage, right femoral triple lumen cath dressing clean and dry. LFA IV locked. Side rails upx3, bed low and locked, call light within reach.
[2020-08-21] MEDS: Cefepime HCl 2 GM in NS 110 ML IV SCH ×2 (09:29→22:35)
[2020-08-21] MEDS: Heparin 5000 units/ml inj SUBQ SCH ×2 (09:30→22:36)
[2020-08-21] MEDS: Albuterol/Ipratropium 3ml neb HHN PRN (09:35)
--- NOTE | 2020-08-21 09:45 | NUR ---
NURSE NOTES: Patient desaturated to 84-88% while on bedpan, patient was noted to be straining to have a bowel movement and desaturating while bearing down, patient educated not to hold breath while having a bowel movement. Following bowel movement, patient continued to desaturate intermittently to 85-88% with tachycardia up to 120 BPM, patient also noted to have increased work of breathing, NC increased to 5L, and RT called to administer PRN breathing treatment. RT at bedside now, patient receiving breathing treatment and saturating 96-97% while receiving treatment. Called Dr. Evans to notify of patient's condition at 0941, no call back received as of this time.
--- NOTE | 2020-08-21 10:52 | NUR ---
NURSE NOTES: Patient cleaned, turned, repositioned, stage 3 observed on sacrum, new dressing applied, new WCP taken and uploaded, wound care center called for consult and per stereo equipment installer, wound care nurses will be notified to see patient today. Patient noted to have decreased work of breathing s/p breathing treatment, patient stated he is less short of breath, patient remains on 5L NC at this time with continuous pulseox monitoring in place, patient remains tachycardic 115-120 BPM, saturating 96-97%, coughing intermittently. No callback received from Dr. Evans as of this time.
--- NOTE | 2020-08-21 11:19 | NUR ---
NURSE NOTES: Patient remains tachycardic 115-117 BPM, NC decreased to 3L and patient saturating 97%, patient appears calm, patient denies SOB.
--- NOTE | 2020-08-21 11:35 | NUR ---
NURSE NOTES: Received callback from Dr. Evans, notified MD of patient's episode of desaturation earlier and that patient currently remains tachycardic 116-120BPM, per MD "let Dr. Herbert know." Patient remains stable, saturating 97% on 3L NC.
[2020-08-21 12:00] VITALS: BP 121/73
--- NOTE | 2020-08-21 12:49 | Infectious Diseases Prog Note ---
Assessment/Plan Assessment: Sepsis Pneumonia- Pulmonary edema Acute hypercapnic resp failure -08/19 CXR: There are unchanged moderate mixed interstitial and alveolar infiltrates bilaterally most likely representing pulmonary edema. -08/17 CXR: Bilateral interstitial and airspace opacities, likely re presenting moderate pulmonary edema, though superimposed pneumonia is not excluded. Cardiomegaly.. Likely small bilateral pleural effusions. rapid COVID PCR neg Influenza ag screen neg Afebrile Leukocytosis, SP -ucx NTD, BCx NTD hx of COVID19 PNA 07/05/2020 DM2 HTN SNF resident ( [facility]) Plan: Continue empiric Cefepime #5/5-7 -08/20 SP IV Vancomycin #3 -08/17 SP ZOsyn x1 -f/u cx -Monitor CBC/CMP, temperatures -f/u sp cx, legionella ag urine -aspiration precautions Thank you for consulting [facility]. Will continue to follow along with you. Discussed with RN. Subjective Allergies: Coded Allergies: No Known Allergies (Unverified , 08/17/20) Objective Last 24 Hour Vital Signs Date Time Temp Pulse Resp B/P (MAP) Pulse Ox O2 Delivery O2 Flow Rate FiO2 08/21/20 09:36 115 18 97 Nasal Cannula 4.0 36 113 18 92 08/21/20 09:00 Nasal Cannula 2.0 08/21/20 08:00 97.4 100 20 144/84 (104) 95 08/21/20 04:00 98.4 97 20 143/87 (105) 97 08/21/20 00:00 98.3 93 19 142/89 (106) 97 08/20/20 21:00 Nasal Cannula 2.0 08/20/20 20:00 97.9 100 22 143/77 (99) 94 08/20/20 16:00 98.6 104 24 150/79 (102) 92 Height (Feet): 5 Height (Inches): 6.00 Weight (Pounds): 160 Microbiology Date/Time Source Procedure Growth Status 08/18/20 16:02 Nasopharynx - Final Complete 08/18/20 16:02 Nasopharynx - Final Complete 08/18/20 13:10 Nasopharynx Coronavirus COVID-19 PCR ([facility]) - Final Complete 08/18/20 13:10 Nasopharynx SARS-CoV-2 RdRp Gene Assay - Final Complete Laboratory Tests Test 08/20/20 20:45 08/21/20 05:15 08/21/20 05:49 08/21/20 11:58 POC Whole Blood Glucose 169 MG/DL (74-106) H 148 MG/DL (74-106) H 169 MG/DL (74-106) H White Blood Count 9.2 K/UL (4.8-10.8) Red Blood Count 3.48 M/UL (4.70-6.10) L Hemoglobin 10.4 G/DL (14.2-18.0) L Hematocrit 32.7 % (42.0-52.0) L Mean Corpuscular Volume 94 FL (80-99) Mean Corpuscular Hemoglobin 29.7 PG (27.0-31.0) Mean Corpuscular Hemoglobin Concent 31.7 G/DL (32.0-36.0) L Red Cell Distribution Width 16.1 % (11.6-14.8) H Platelet Count 492 K/UL (150-450) H Mean Platelet Volume 4.4 FL (6.5-10.1) L Neutrophils (%) (Auto) 57.5 % (45.0-75.0) Lymphocytes (%) (Auto) 24.3 % (20.0-45.0) Monocytes (%) (Auto) 12.5 % (1.0-10.0) H Eosinophils (%) (Auto) 4.8 % (0.0-3.0) H Basophils (%) (Auto) 1.0 % (0.0-2.0) Sodium Level 136 MMOL/L (136-145) Potassium Level 3.8 MMOL/L (3.5-5.1) Chloride Level 100 MMOL/L (98-107) Carbon Dioxide Level 30 MMOL/L (21-32) Anion Gap 7 mmol/L (5-15) Blood Urea Nitrogen 8 mg/dL (7-18) Creatinine 0.9 MG/DL (0.55-1.30) Estimat Glomerular Filtration Rate > 60 mL/min (>60) Glucose Level 143 MG/DL (74-106) H Calcium Level 9.2 MG/DL (8.5-10.1) Current Medications Medications (Trade) Dose Ordered Sig/Jonny Route PRN Reason Start Time Stop Time Status Last Admin Dose Admin Acetaminophen (Tylenol) 650 mg Q4H PRN ORAL Temp >100.5 08/17/20 15:00 09/16/20 14:59 Albuterol/ Ipratropium (Albuterol/ Ipratropium) 3 ml Q4H PRN HHN Shortness of Breath 08/17/20 15:00 08/22/20 14:59 08/21/20 09:35 Cefepime HCl 2 gm/ Sodium Chloride 110 ml @ 220 mls/hr EVERY 12 HOURS IV 08/17/20 21:00 08/24/20 20:59 08/21/20 09:29 Dextrose (Dextrose 50%) 25 ml Q30M PRN IV Hypoglycemia 08/17/20 23:30 11/15/20 23:29 Dextrose (Dextrose 50%) 50 ml Q30M PRN IV Hypoglycemia 08/17/20 23:30 11/15/20 23:29 Heparin Sodium (Porcine) (Heparin 5000 units/ml) 5,000 units EVERY 12 HOURS SUBQ 08/17/20 21:00 10/01/20 20:59 08/21/20 09:30 Insulin Aspart (NovoLOG) BEFORE MEALS AND HS SUBQ 08/18/20 06:30 11/16/20 06:29 08/21/20 12:10 Ipratropium [place] (Atrovent) 500 mcg Q4H PRN HHN Shortness of Breath 08/20/20 08:30 08/25/20 08:29 Lorazepam (Ativan 2mg/ml 1ml) 2 mg Q2H PRN IV For Anxiety 08/17/20 15:00 08/24/20 14:59 Ondansetron HCl (Zofran) 4 mg Q6H PRN IVP Nausea & Vomiting 08/17/20 15:00 09/16/20 14:59 Pantoprazole (Protonix) 40 mg DAILY ORAL 08/18/20 09:00 09/17/20 08:59 08/21/20 09:29 Polyethylene Glycol (Miralax) 17 gm DAILYPRN PRN ORAL Constipation 08/17/20 15:00 09/16/20 14:59 Promethazine HCl/ Codeine (Phenergan with Codeine) 5 ml Q4H PRN ORAL For Cough 08/17/20 15:00 09/16/20 14:59 08/20/20 08:24 Brianda Sterling M.D. Aug 21, 2020 12:49
--- NOTE | 2020-08-21 13:12 | NUR ---
SKEIN YARD DRIER NOTE MESSAGE LEFT FOR DR NIKOLAS KC DC BACK TO SNF. AWAITING CALL BACK.
--- NOTE | 2020-08-21 13:32 | Pulmonology Progress Note ---
Subjective ROS Limited/Unobtainable: No Interval Events: on nasal cannula Allergies: Coded Allergies: No Known Allergies (Unverified , 08/17/20) Objective Last 24 Hour Vital Signs Date Time Temp Pulse Resp B/P (MAP) Pulse Ox O2 Delivery O2 Flow Rate FiO2 08/21/20 09:36 115 18 97 Nasal Cannula 4.0 36 113 18 92 08/21/20 09:00 Nasal Cannula 2.0 08/21/20 08:00 97.4 100 20 144/84 (104) 95 08/21/20 04:00 98.4 97 20 143/87 (105) 97 08/21/20 00:00 98.3 93 19 142/89 (106) 97 08/20/20 21:00 Nasal Cannula 2.0 08/20/20 20:00 97.9 100 22 143/77 (99) 94 08/20/20 16:00 98.6 104 24 150/79 (102) 92 Intake and Output 08/20/20 08/21/20 19:00 07:00 Intake Total 500 ml 480 ml Output Total 1000 ml 2300 ml Balance -500 ml -1820 ml Intake Oral 500 ml 480 ml Output Urine Total 1000 ml 2300 ml # Bowel Movements 1 General Appearance: no acute distress, other - Lao speaking male HEENT: normocephalic, atraumatic, anicteric, mucous membranes moist Respiratory: no respiratory distress, no accessory muscle use, other - few scattered rhonchi , islated bibasilar crackles Cardiovascular: normal rate, regular rhythm Abdomen: soft, non tender, non distended Extremities: no edema Skin: rash Neurologic: no motor/sensory deficits, alert, oriented x 3, responsive Musculoskeletal: normal muscle bulk Microbiology Date/Time Source Procedure Growth Status 08/18/20 16:02 Nasopharynx - Final Complete 08/18/20 16:02 Nasopharynx - Final Complete Laboratory Tests 08/20/20 20:45: POC Whole Blood Glucose 169H 08/21/20 05:15: White Blood Count 9.2, Red Blood Count 3.48L, Hemoglobin 10.4L, Hematocrit 32.7L , Mean Corpuscular Volume 94, Mean Corpuscular Hemoglobin 29.7, Mean Corpuscular Hemoglobin Concent 31.7L, Red Cell Distribution Width 16.1H, Platelet Count 492H , Mean Platelet Volume 4.4L, Neutrophils (%) (Auto) 57.5, Lymphocytes (%) (Auto) 24.3, Monocytes (%) (Auto) 12.5H, Eosinophils (%) (Auto) 4.8H, Basophils (%) (Auto) 1.0, Sodium Level 136, Potassium Level 3.8, Chloride Level 100, Carbon Dioxide Level 30, Anion Gap 7, Blood Urea Nitrogen 8, Creatinine 0.9, Estimat Glomerular Filtration Rate > 60, Glucose Level 143H, Calcium Level 9.2 08/21/20 05:49: POC Whole Blood Glucose 148H 08/21/20 11:58: POC Whole Blood Glucose 169H Current Medications Medications (Trade) Dose Ordered Sig/Jonny Route PRN Reason Start Time Stop Time Status Last Admin Dose Admin Acetaminophen (Tylenol) 650 mg Q4H PRN ORAL Temp >100.5 08/17/20 15:00 09/16/20 14:59 Albuterol/ Ipratropium (Albuterol/ Ipratropium) 3 ml Q4H PRN HHN Shortness of Breath 08/17/20 15:00 08/22/20 14:59 08/21/20 09:35 Cefepime HCl 2 gm/ Sodium Chloride 110 ml @ 220 mls/hr EVERY 12 HOURS IV 08/17/20 21:00 08/24/20 20:59 08/21/20 09:29 Dextrose (Dextrose 50%) 25 ml Q30M PRN IV Hypoglycemia 08/17/20 23:30 11/15/20 23:29 Dextrose (Dextrose 50%) 50 ml Q30M PRN IV Hypoglycemia 08/17/20 23:30 11/15/20 23:29 Heparin Sodium (Porcine) (Heparin 5000 units/ml) 5,000 units EVERY 12 HOURS SUBQ 08/17/20 21:00 10/01/20 20:59 08/21/20 09:30 Insulin Aspart (NovoLOG) BEFORE MEALS AND HS SUBQ 08/18/20 06:30 11/16/20 06:29 08/21/20 12:10 Ipratropium [place] (Atrovent) 500 mcg Q4H PRN HHN Shortness of Breath 08/20/20 08:30 08/25/20 08:29 Lorazepam (Ativan 2mg/ml 1ml) 2 mg Q2H PRN IV For Anxiety 08/17/20 15:00 08/24/20 14:59 Ondansetron HCl (Zofran) 4 mg Q6H PRN IVP Nausea & Vomiting 08/17/20 15:00 09/16/20 14:59 Pantoprazole (Protonix) 40 mg DAILY ORAL 08/18/20 09:00 09/17/20 08:59 08/21/20 09:29 Polyethylene Glycol (Miralax) 17 gm DAILYPRN PRN ORAL Constipation 08/17/20 15:00 09/16/20 14:59 Promethazine HCl/ Codeine (Phenergan with Codeine) 5 ml Q4H PRN ORAL For Cough 08/17/20 15:00 09/16/20 14:59 08/20/20 08:24 Assessment/Plan Problems: (1) Nosocomial pneumonia (2) History of 2019 novel coronavirus disease (COVID-19) (3) History of hypertension (4) History of CHF (congestive heart failure) (5) History of diabetes mellitus Assessment/Plan still tachycardic all cultures negative COVID - times two no sputum yet Echo reviewed, EF is 60%, BNP is low, CHF unlikely Interstitial pneumonia CT of chest telemetry b/o tachycardia Cecilio Herbert MD Aug 21, 2020 13:32
--- NOTE | 2020-08-21 13:46 | NUR ---
NURSE NOTES: Dr. Herbert notified and aware of patient's episode of desaturation this AM and ongoing tachycardia, orders placed by MD, patient to transfer to telemetry pending bed assignment, supervisor electrolytic tinning notified.
--- NOTE | 2020-08-21 13:59 | Diagnostic Imaging Report ---
Indication: Shortness of breath Technique: One view of the chest Comparison: 08/19/2020 Findings: Bilateral infiltrates are unchanged. Cardiomegaly is unchanged. Impression: Unchanged, over 2 days, findings as above.
--- NOTE | 2020-08-21 14:31 | NUR ---
CASE MANAGEMENT:REVIEW SI;SEPSIS. PNA. PULMONARY EDEMA. 98.4 120 20 144/84 92% 4L NC H/H 10.4/32.7 IS;PROTONIX PO QD CEFEPIME IV Q12 HEPARIN SUBQ Q12 DUO NEB HHN Q4 PRN TRANSFERRED TO TELEMETRY TELE STATUS DCP;FROM [facility]
--- NOTE | 2020-08-21 14:40 | NUR ---
NURSE NOTES: Patient transferred to telemetry 205-1 per order. Report given to Amita COLINDRES. Plan of care endorsed.
--- NOTE | 2020-08-21 14:57 | NUR ---
NURSE NOTES: Received Pt report from BERNADINE Ferrer on 3E. Pt is stable, AOx3-4 french speaking. Pt is on 4LPM NC, unlabored breathing, even respirations. Pt has a stage 3 sacral wound. R tripple lumen central catheter noted, dressing dry and intact. RFA 20g SL, asymptomatic and intact. Pt vitals at this time 118/72, 116HR, 17 RR, 98.1F axillary, and 97% sPO2 on 4LPM. Pt bed low and locked, call light in reach and bed alarm on. Pt verbalized understanding to call for help.
[2020-08-21 16:00] VITALS: BP 120/70
--- NOTE | 2020-08-21 16:59 | Consultation ---
History of Present Illness General Date patient seen: Aug 21, 2020 Reason for Hospitalization: Upper Respiratory Illness Present Illness HPI 60 year old male presented from care facility for evaluation of respiratory symptoms. noted to have desaturation with coughing episode. admitted and undergoing medical care and management. noted to have abnormal labs, sacral decubitus ulcer, and imaging as below. surgery called to evaluate and assist with care. Allergies: Coded Allergies: No Known Allergies (Unverified , 08/17/20) COVID-19 Screening Contact w/high risk pt: Yes Experienced COVID-19 symptoms?: Yes Coronavirus symptoms experienc: Shortness of Breath Medication History Scheduled Furosemide* (Lasix*), 40 MG ORAL TWICE A DAY, (Reported) Insulin Glargine (Lantus), 0 SUBQ BEDTIME, (Reported) Lactobacillus Acidophilus (Acidophilus), 1 EACH PO TID, (Reported) Pantoprazole* (Pantoprazole*), 40 MG ORAL DAILY, (Reported) Potassium Bicarbonate/Cit Ac (Effer-K 20 Meq Tablet Eff), 20 MEQ PO BID, (Reported) Discontinued Medications Potassium Chloride* (K-Dur*), 20 MEQ ORAL TWICE A DAY, (Reported) Discontinued Reason: Prescription changed Patient History Limited by: medical condition History Provided By: Patient, Medical Record, PMD Healthcare decision maker Resuscitation status Advanced Directive on File Past Medical/Surgical History Past Medical/Surgical History: (1) Sacral decubitus ulcer (2) Tachycardia (3) Pneumonia (4) Elevated d-dimer (5) Nosocomial pneumonia (6) History of 2019 novel coronavirus disease (COVID-19) (7) History of diabetes mellitus (8) History of CHF (congestive heart failure) (9) History of hypertension Review of Systems Review of Symptoms General ROS: no weight loss or fever Psychological ROS: no depression or mood changes, no memory loss Ophthalmic ROS: no visual changes or eye irritation ENT ROS: no nasal congestion, hearing loss, dizziness Allergy and Immunology ROS: no allergic symptoms or urticaria Hematological and Lymphatic ROS: no swollen glands, unusual bleeding or bruising Endocrine ROS: no polyuria, polydipsia, weight changes, temperature intolerance Respiratory ROS: no cough, shortness of breath, or wheezing Cardiovascular ROS: no chest pain or dyspnea on exertion Gastrointestinal ROS: denies abdominal pain, bright red blood in stool. Musculoskeletal ROS: no myalgias or arthralgias Neurological ROS: no TIA or stroke symptoms Dermatological ROS: no new or changing skin lesions, rashes or pruritis Physical Exam Physical Exam General appearance: alert, cooperative, no distress, appears stated age Head: Normocephalic, without obvious abnormality, atraumatic Eyes: conjunctivae/corneas clear. PERRL, EOM's intact. Fundi benign Throat: Lips, mucosa, and tongue normal. Teeth and gums normal Neck: supple, symmetrical, trachea midline, no adenopathy, thyroid: not enlarged, symmetric, no tenderness/mass/nodules, no carotid bruit and no JVD Lungs: clear to auscultation bilaterally Heart: regular rate and rhythm, S1, S2 normal, no murmur, click, rub or gallop Abdomen: soft, non-tender. Bowel sounds normal. No masses, no organomegaly Extremities: extremities normal, atraumatic, no cyanosis or edema Pulses: 2+ and symmetric Skin: Skin color, texture, turgor normal. No rashes or lesions Neurologic: Grossly normal Last 24 Hour Vital Signs Date Time Temp Pulse Resp B/P (MAP) Pulse Ox O2 Delivery O2 Flow Rate FiO2 08/21/20 16:00 98.1 98 20 120/70 (87) 96 08/21/20 12:00 98.3 120 20 121/73 (89) 95 08/21/20 09:36 115 18 97 Nasal Cannula 4.0 36 113 18 92 08/21/20 09:00 Nasal Cannula 2.0 08/21/20 08:00 97.4 100 20 144/84 (104) 95 08/21/20 04:00 98.4 97 20 143/87 (105) 97 08/21/20 00:00 98.3 93 19 142/89 (106) 97 08/20/20 21:00 Nasal Cannula 2.0 08/20/20 20:00 97.9 100 22 143/77 (99) 94 Intake and Output 08/20/20 08/21/20 19:00 07:00 Intake Total 500 ml 480 ml Output Total 1000 ml 2300 ml Balance -500 ml -1820 ml Intake Oral 500 ml 480 ml Output Urine Total 1000 ml 2300 ml # Bowel Movements 1 Laboratory Tests Test 08/20/20 20:45 08/21/20 05:15 08/21/20 05:49 08/21/20 11:58 POC Whole Blood Glucose 169 MG/DL (74-106) H 148 MG/DL (74-106) H 169 MG/DL (74-106) H White Blood Count 9.2 K/UL (4.8-10.8) Red Blood Count 3.48 M/UL (4.70-6.10) L Hemoglobin 10.4 G/DL (14.2-18.0) L Hematocrit 32.7 % (42.0-52.0) L Mean Corpuscular Volume 94 FL (80-99) Mean Corpuscular Hemoglobin 29.7 PG (27.0-31.0) Mean Corpuscular Hemoglobin Concent 31.7 G/DL (32.0-36.0) L Red Cell Distribution Width 16.1 % (11.6-14.8) H Platelet Count 492 K/UL (150-450) H Mean Platelet Volume 4.4 FL (6.5-10.1) L Neutrophils (%) (Auto) 57.5 % (45.0-75.0) Lymphocytes (%) (Auto) 24.3 % (20.0-45.0) Monocytes (%) (Auto) 12.5 % (1.0-10.0) H Eosinophils (%) (Auto) 4.8 % (0.0-3.0) H Basophils (%) (Auto) 1.0 % (0.0-2.0) Sodium Level 136 MMOL/L (136-145) Potassium Level 3.8 MMOL/L (3.5-5.1) Chloride Level 100 MMOL/L (98-107) Carbon Dioxide Level 30 MMOL/L (21-32) Anion Gap 7 mmol/L (5-15) Blood Urea Nitrogen 8 mg/dL (7-18) Creatinine 0.9 MG/DL (0.55-1.30) Estimat Glomerular Filtration Rate > 60 mL/min (>60) Glucose Level 143 MG/DL (74-106) H Calcium Level 9.2 MG/DL (8.5-10.1) Height (Feet): 5 Height (Inches): 6.00 Weight (Pounds): 160 Medications Current Medications Medications (Trade) Dose Ordered Sig/Jonny Route PRN Reason Start Time Stop Time Status Last Admin Dose Admin Acetaminophen (Tylenol) 650 mg Q4H PRN ORAL Temp >100.5 08/17/20 15:00 09/16/20 14:59 Albuterol/ Ipratropium (Albuterol/ Ipratropium) 3 ml Q4H PRN HHN Shortness of Breath 08/17/20 15:00 08/22/20 14:59 08/21/20 09:35 Cefepime HCl 2 gm/ Sodium Chloride 110 ml @ 220 mls/hr EVERY 12 HOURS IV 08/17/20 21:00 08/24/20 20:59 08/21/20 09:29 Dextrose (Dextrose 50%) 25 ml Q30M PRN IV Hypoglycemia 08/17/20 23:30 11/15/20 23:29 Dextrose (Dextrose 50%) 50 ml Q30M PRN IV Hypoglycemia 08/17/20 23:30 11/15/20 23:29 Heparin Sodium (Porcine) (Heparin 5000 units/ml) 5,000 units EVERY 12 HOURS SUBQ 08/17/20 21:00 10/01/20 20:59 08/21/20 09:30 Insulin Aspart (NovoLOG) BEFORE MEALS AND HS SUBQ 08/18/20 06:30 11/16/20 06:29 08/21/20 16:31 Ipratropium [place] (Atrovent) 500 mcg Q4H PRN HHN Shortness of Breath 08/20/20 08:30 08/25/20 08:29 Lorazepam (Ativan 2mg/ml 1ml) 2 mg Q2H PRN IV For Anxiety 08/17/20 15:00 08/24/20 14:59 Ondansetron HCl (Zofran) 4 mg Q6H PRN IVP Nausea & Vomiting 08/17/20 15:00 09/16/20 14:59 Pantoprazole (Protonix) 40 mg DAILY ORAL 08/18/20 09:00 09/17/20 08:59 08/21/20 09:29 Polyethylene Glycol (Miralax) 17 gm DAILYPRN PRN ORAL Constipation 08/17/20 15:00 09/16/20 14:59 Promethazine HCl/ Codeine (Phenergan with Codeine) 5 ml Q4H PRN ORAL For Cough 08/17/20 15:00 09/16/20 14:59 08/20/20 08:24 Assessment/Plan Problem List: (1) Elevated d-dimer ICD Codes: R79.89 - Other specified abnormal findings of blood chemistry SNOMED: 818962130 (2) Nosocomial pneumonia ICD Codes: J18.9 - Pneumonia, unspecified organism; Y95 - Nosocomial condition SNOMED: 582809485 (3) History of 2019 novel coronavirus disease (COVID-19) ICD Codes: Z86.19 - Personal history of other infectious and parasitic diseases SNOMED: 322240735 (4) Tachycardia ICD Codes: R00.0 - Tachycardia, unspecified SNOMED: 2732387 (5) Pneumonia ICD Codes: J18.9 - Pneumonia, unspecified organism SNOMED: 660943552 (6) Sacral decubitus ulcer Assessment & Plan: PATIENT AWAKE, ALERT AND ABLE TO [id number] SELF WITH MINIMAL ASSISTANCE. O2 VIA NASAL CANULA. SACRUM-STAGE III MEASURES 5.0X1.8X0.2. WOUND BED WITH 60% SLOUGH AND 40% PINK GRANULATION TISSUE. MINIMAL SERO-SANGUINEOUS DRAINAGE NOTED. SPENCER-WOUND SKIN INTACT. Tx plan: CLEAN WITH SALINE. PAT DRY. APPLY THERAHONEY AND COVER WITH OPTIFOAM DRESSING. REPLACE DRESSING DAILY. PATIENT SHOULD BE REMINDED TO REPOSITION SELF FREQUENTLY. ELEVATE HEELS WITH PILLOWS. TURN Q2H OFF LOAD PRESSURE WITH PILLOWS AIR SOFT MATTRESS NUTRITIONAL OPTIMIZATION WILL FOLLOW WITH RECS ICD Codes: L89.159 - Pressure ulcer of sacral region, unspecified stage SNOMED: 638397975 (7) History of diabetes mellitus ICD Codes: Z86.39 - Personal history of other endocrine, nutritional and metabolic disease SNOMED: 817094956 (8) History of CHF (congestive heart failure) ICD Codes: Z86.79 - Personal history of other diseases of the circulatory system SNOMED: 973730836 (9) History of hypertension ICD Codes: Z86.79 - Personal history of other diseases of the circulatory system SNOMED: 260438980 Ernesto Pisano Aug 21, 2020 16:59
--- NOTE | 2020-08-21 18:44 | Internal Med Progress Note ---
Subjective Date of Service: Aug 21, 2020 Physician Name CrisDimitri Attending Physician Rc Evans MD Current Medications Medications (Trade) Dose Ordered Sig/Jonny Route PRN Reason Start Time Stop Time Status Last Admin Dose Admin Acetaminophen (Tylenol) 650 mg Q4H PRN ORAL Temp >100.5 08/17/20 15:00 09/16/20 14:59 Albuterol/ Ipratropium (Albuterol/ Ipratropium) 3 ml Q4H PRN HHN Shortness of Breath 08/17/20 15:00 08/22/20 14:59 08/21/20 09:35 Cefepime HCl 2 gm/ Sodium Chloride 110 ml @ 220 mls/hr EVERY 12 HOURS IV 08/17/20 21:00 08/24/20 20:59 08/21/20 09:29 Dextrose (Dextrose 50%) 25 ml Q30M PRN IV Hypoglycemia 08/17/20 23:30 11/15/20 23:29 Dextrose (Dextrose 50%) 50 ml Q30M PRN IV Hypoglycemia 08/17/20 23:30 11/15/20 23:29 Heparin Sodium (Porcine) (Heparin 5000 units/ml) 5,000 units EVERY 12 HOURS SUBQ 08/17/20 21:00 10/01/20 20:59 08/21/20 09:30 Insulin Aspart (NovoLOG) BEFORE MEALS AND HS SUBQ 08/18/20 06:30 11/16/20 06:29 08/21/20 16:31 Ipratropium [place] (Atrovent) 500 mcg Q4H PRN HHN Shortness of Breath 08/20/20 08:30 08/25/20 08:29 Lorazepam (Ativan 2mg/ml 1ml) 2 mg Q2H PRN IV For Anxiety 08/17/20 15:00 08/24/20 14:59 Ondansetron HCl (Zofran) 4 mg Q6H PRN IVP Nausea & Vomiting 08/17/20 15:00 09/16/20 14:59 Pantoprazole (Protonix) 40 mg DAILY ORAL 08/18/20 09:00 09/17/20 08:59 08/21/20 09:29 Polyethylene Glycol (Miralax) 17 gm DAILYPRN PRN ORAL Constipation 08/17/20 15:00 09/16/20 14:59 Promethazine HCl/ Codeine (Phenergan with Codeine) 5 ml Q4H PRN ORAL For Cough 08/17/20 15:00 09/16/20 14:59 08/20/20 08:24 Allergies: Coded Allergies: No Known Allergies (Unverified , 08/17/20) ROS Limited/Unobtainable: Yes Subjective 60 YO M admitted with shortness of breath. Now pulmonary edema and pneumonia. Cover for Int Aurelio-Dr Evans Objective Last Vital Signs Date Time Temp Pulse Resp B/P (MAP) Pulse Ox O2 Delivery O2 Flow Rate FiO2 08/21/20 16:00 98.1 98 20 120/70 (87) 96 08/21/20 09:36 Nasal Cannula 4.0 36 Laboratory Tests Test 08/20/20 20:45 08/21/20 05:15 08/21/20 05:49 08/21/20 11:58 POC Whole Blood Glucose 169 MG/DL (74-106) H 148 MG/DL (74-106) H 169 MG/DL (74-106) H White Blood Count 9.2 K/UL (4.8-10.8) Red Blood Count 3.48 M/UL (4.70-6.10) L Hemoglobin 10.4 G/DL (14.2-18.0) L Hematocrit 32.7 % (42.0-52.0) L Mean Corpuscular Volume 94 FL (80-99) Mean Corpuscular Hemoglobin 29.7 PG (27.0-31.0) Mean Corpuscular Hemoglobin Concent 31.7 G/DL (32.0-36.0) L Red Cell Distribution Width 16.1 % (11.6-14.8) H Platelet Count 492 K/UL (150-450) H Mean Platelet Volume 4.4 FL (6.5-10.1) L Neutrophils (%) (Auto) 57.5 % (45.0-75.0) Lymphocytes (%) (Auto) 24.3 % (20.0-45.0) Monocytes (%) (Auto) 12.5 % (1.0-10.0) H Eosinophils (%) (Auto) 4.8 % (0.0-3.0) H Basophils (%) (Auto) 1.0 % (0.0-2.0) Sodium Level 136 MMOL/L (136-145) Potassium Level 3.8 MMOL/L (3.5-5.1) Chloride Level 100 MMOL/L (98-107) Carbon Dioxide Level 30 MMOL/L (21-32) Anion Gap 7 mmol/L (5-15) Blood Urea Nitrogen 8 mg/dL (7-18) Creatinine 0.9 MG/DL (0.55-1.30) Estimat Glomerular Filtration Rate > 60 mL/min (>60) Glucose Level 143 MG/DL (74-106) H Calcium Level 9.2 MG/DL (8.5-10.1) Intake and Output 08/20/20 08/21/20 19:00 07:00 Intake Total 500 ml 480 ml Output Total 1000 ml 2300 ml Balance -500 ml -1820 ml Intake Oral 500 ml 480 ml Output Urine Total 1000 ml 2300 ml # Bowel Movements 1 Objective PHYSICAL EXAMINATION: GENERAL: The patient is awake, responsive, no acute distress. HEAD AND NECK: Pupils are equal and reactive to light. Extraocular movements intact. NECK: Supple. No JVD. LUNGS: Good air entry. No wheezing or rales. HEART: S1, S2. Tachycardic. No murmur or gallops. ABDOMEN: Soft, nondistended, nontender. Positive bowel sounds. Mildly obese extremities. No cyanosis, clubbing, edema. NEUROLOGIC: corporate accounting manager II to XII grossly intact. Motor is 5+, symmetric. Gait was not assessed due to the patient's status. RECTAL AND GENITOURINARY: Refused and deferred. PSYCHIATRIC: Mood and affect are intact. Assessment/Plan Assessment/Plan ASSESSMENT: 1. Shortness of breath 2. Leukocytosis, resolving 3. Hypertension. 4. Diabetes type 2. 5. Obesity. 6. Hypoxemia. 7. History of COVID-19 infection in June 2020. 8. pneumonia PLAN: 1. Admit the patient to monitored unit. 2. antibiotics = cefepime. S/P vanco 3. Code status is full code. 4. DVT prophylaxis, heparin subcu. 5. Pulmonary consultation = Dr. Herbert. 6. ID=Dimitri Mejia MD Aug 21, 2020 18:44
--- NOTE | 2020-08-21 19:29 | NUR ---
NURSE HAND-OFF REPORT: Important Events on Shift: Transfer from MS 3E to Tele 2E for SOB/ST Patient Status: fc, stable Diet: ccho medium Pending Orders: Pending Results/Labs: Pending MD notification: Latest Vital Signs: Temperature 98.1 , Pulse 98 , B/P 120 /70 , Respiratory Rate 20 , O2 SAT 96 , Nasal Cannula, O2 Flow Rate 2.0 . Vital Sign Comment: EKG Rhythm: Sinus Tachycardia Rhythm change?: N MD Notified?: N - MD Response: Latest Beltrán Fall Score: 35 Fall Risk: Medium Risk Safety Measures: Call light Within Reach, Bed Alarm Zone 1, Side Rails Side Rails x3, Bed position Low and Locked. Fall Precautions: Yellow Socks Yellow Gown Door Sign Patient Fall Education Report given to BERNADINE Webb. Addendum: 08/21/20 at 1931 by Amita Merchant RN RN one of the central line catheters do not flush
--- NOTE | 2020-08-21 19:31 | NUR ---
NURSE NOTES: Important Events on Shift: Received report from Amita Pineda RN. Pt in stable condition, denies pain, no signs or symptoms of distress noted at this time. Pt in bed, awake, and alert. Will continue to monitor closely. Will continue plan of care. Patient Status: Diet: Pending Orders: None Pending Results/Labs: BMP, CBC Pending MD notification: None Latest Vital Signs: Temperature 98.1 , Pulse 98 , B/P 120 /70 , Respiratory Rate 20 , O2 SAT 96 , Nasal Cannula, O2 Flow Rate 2.0 . Vital Sign Comment: Stable EKG Rhythm: Sinus Tachycardia Rhythm change?: N MD Notified?: N - MD Response: Latest Beltrán Fall Score: 35 Fall Risk: Medium Risk Safety Measures: Call light Within Reach, Bed Alarm Zone 1, Side Rails Side Rails x3, Bed position Low and Locked. Fall Precautions: YES Yellow Socks yes Yellow Gown YES Door Sign YES Patient Fall Education YES
[2020-08-21 20:00] VITALS: BP 141/72
[2020-08-22] VITALS: BP 120/77
[2020-08-22 04:00] VITALS: BP 112/77
[2020-08-22] MEDS: NovoLOG Insulin Flexpen SUBQ SCH ×4 (06:40→22:44)
--- NOTE | 2020-08-22 07:01 | NUR ---
NURSE HAND-OFF REPORT: Important Events on Shift: None Patient Status: stable Diet: CCHO med Pending Orders: none Pending Results/Labs: BMP, CBC Pending MD notification: None Latest Vital Signs: Temperature 98.8 , Pulse 93 , B/P 112 /77 , Respiratory Rate 24 , O2 SAT 98 , Nasal Cannula, O2 Flow Rate 4.0 . Vital Sign Comment: stable EKG Rhythm: Sinus Rhythm Rhythm change?: N MD Notified?: N - MD Response: - Latest Beltrán Fall Score: 35 Fall Risk: Medium Risk Safety Measures: Call light Within Reach, Bed Alarm Zone 1, Side Rails Side Rails x3, Bed position Low and Locked. Fall Precautions: yes Yellow Socks yes Yellow Gown yes Door Sign yes Patient Fall Education yes Report to be given to Candace Frnaco RN Addendum: 08/22/20 at 0707 by Ying Cheek RN Report to be given to Mady Garcia RN
[2020-08-22 07:38] LABS: BASOPHILS % (AUTO) 1.1 % (0.0-2.0); EOSINOPHILS % (AUTO) 4.6 % (0.0-3.0); HEMATOCRIT 31.6 % (42.0-52.0); LYMPHOCYTES % (AUTO) 22.3 % (20.0-45.0); MEAN CORPUSCULAR VOLUME 94 FL (80-99); MONOCYTES % (AUTO) 11.4 % (1.0-10.0); NEUTROPHILS % (AUTO) 60.7 % (45.0-75.0); PLATELET COUNT 460 K/UL (150-450); RED BLOOD COUNT 3.37 M/UL (4.70-6.10); WHITE BLOOD COUNT 9.3 K/UL (4.8-10.8)
--- NOTE | 2020-08-22 07:39 | NUR ---
NURSE NOTES: Received report BERNADINE Webb. Pt is AOx 3-4 and Ugandan speaking only. Pt is on 4L via NC. No SOB or acute distress noted. No pain noted. Pt has a stage 3 sacral wound. Pt has a R triple lumen femoral central catheter noted, dressing dry and intact. Pt also had a RFA 20G which is intact and flushed. Pt bed low and locked, call light in reach and bed alarm on. Pt verbalized understanding to use call light for help.
[2020-08-22 08:00] VITALS: BP 131/74
[2020-08-22 08:07] LABS: ANION GAP 9 mmol/L (5-15); BLOOD UREA NITROGEN 12 mg/dL (7-18); CALCIUM 8.8 MG/DL (8.5-10.1); CARBON DIOXIDE 26 MMOL/L (21-32); CHLORIDE 102 MMOL/L (98-107); CREATININE 0.9 MG/DL (0.55-1.30); POTASSIUM 3.9 MMOL/L (3.5-5.1); SODIUM 137 MMOL/L (136-145)
[2020-08-22] MEDS: Heparin 5000 units/ml inj SUBQ SCH ×2 (08:53→22:42)
[2020-08-22] MEDS: Cefepime HCl 2 GM in NS 110 ML IV SCH ×2 (08:55→22:44)
--- NOTE | 2020-08-22 09:52 | NUR ---
RD ASSESSMENT & RECOMMENDATIONS SEE CARE ACTIVITY FOR COMPLETE ASSESSMENT DAILY ESTIMATED NEEDS: Needs based on Pulmonary wound 68.5kg 25-35 kcals/kg 5931-3194 total kcals 1.25-1.5 g protein/kg 86-103 g total protein 25-30 mL/kg 3160-6775 total fluid mLs NUTRITION DIAGNOSIS: Increased pro needs r/t wound healing as evidenced by pt w/ stage 3 sacral pressure injury. CURRENT DIET: CCHO MED PO DIET RECOMMENDATIONS: CCHO MED ADDITIONAL RECOMMENDATIONS: 1) Maintain calibrated bed scale wts 2) Wound care: add ROD BID + Vit C 250mg BID + MVI w/ min qd 3) Variable po intake: add Glucerna w/ meals Add high pro snacks in b/w meals
[2020-08-22 12:00] VITALS: BP 128/70
--- NOTE | 2020-08-22 12:19 | Pulmonology Progress Note ---
Subjective ROS Limited/Unobtainable: Yes Interval Events: on nasal cannula Allergies: Coded Allergies: No Known Allergies (Unverified , 08/17/20) Objective Last 24 Hour Vital Signs Date Time Temp Pulse Resp B/P (MAP) Pulse Ox O2 Delivery O2 Flow Rate FiO2 08/22/20 09:00 Nasal Cannula 4.0 08/22/20 08:00 97 08/22/20 08:00 97.5 103 20 131/74 (93) 97 08/22/20 04:00 98.8 93 24 112/77 (89) 98 08/22/20 04:00 88 08/22/20 00:00 92 08/22/20 00:00 98.1 92 23 120/77 (91) 97 08/21/20 23:01 98 Nasal Cannula 4.0 36 08/21/20 21:00 Nasal Cannula 4.0 08/21/20 20:00 96 08/21/20 20:00 97.9 96 22 141/72 (95) 97 08/21/20 16:00 98.1 98 20 120/70 (87) 96 Intake and Output 08/21/20 08/22/20 19:00 07:00 Intake Total 730 ml 300 ml Output Total 375 ml 700 ml Balance 355 ml -400 ml Intake Oral 620 ml 300 ml IV Total 110 ml Output Urine Total 375 ml 700 ml # Bowel Movements 1 General Appearance: no acute distress, other - [place]an speaking male HEENT: normocephalic, atraumatic, anicteric, mucous membranes moist Respiratory: no respiratory distress, no accessory muscle use, other - few scattered rhonchi , islated bibasilar crackles Cardiovascular: normal rate, regular rhythm Abdomen: soft, non tender, non distended Extremities: no edema Skin: rash Neurologic: no motor/sensory deficits, alert, oriented x 3, responsive Musculoskeletal: normal muscle bulk Laboratory Tests 08/22/20 05:38: White Blood Count 9.3, Red Blood Count 3.37L, Hemoglobin 10.0L, Hematocrit 31.6L , Mean Corpuscular Volume 94, Mean Corpuscular Hemoglobin 29.7, Mean Corpuscular Hemoglobin Concent 31.7L, Red Cell Distribution Width 16.0H, Platelet Count 460H , Mean Platelet Volume 4.2L, Neutrophils (%) (Auto) 60.7, Lymphocytes (%) (Auto) 22.3, Monocytes (%) (Auto) 11.4H, Eosinophils (%) (Auto) 4.6H, Basophils (%) (Auto) 1.1, Sodium Level 137, Potassium Level 3.9, Chloride Level 102, Carbon Dioxide Level 26, Anion Gap 9, Blood Urea Nitrogen 12, Creatinine 0.9, Estimat Glomerular Filtration Rate > 60, Glucose Level 130H, Calcium Level 8.8 Current Medications Medications (Trade) Dose Ordered Sig/Jonny Route PRN Reason Start Time Stop Time Status Last Admin Dose Admin Acetaminophen (Tylenol) 650 mg Q4H PRN ORAL Temp >100.5 08/17/20 15:00 09/16/20 14:59 Albuterol/ Ipratropium (Albuterol/ Ipratropium) 3 ml Q4H PRN HHN Shortness of Breath 08/17/20 15:00 08/22/20 14:59 08/21/20 09:35 Cefepime HCl 2 gm/ Sodium Chloride 110 ml @ 220 mls/hr EVERY 12 HOURS IV 08/17/20 21:00 08/24/20 20:59 08/22/20 08:55 Dextrose (Dextrose 50%) 25 ml Q30M PRN IV Hypoglycemia 08/17/20 23:30 11/15/20 23:29 Dextrose (Dextrose 50%) 50 ml Q30M PRN IV Hypoglycemia 08/17/20 23:30 11/15/20 23:29 Heparin Sodium (Porcine) (Heparin 5000 units/ml) 5,000 units EVERY 12 HOURS SUBQ 08/17/20 21:00 10/01/20 20:59 08/22/20 08:53 Insulin Aspart (NovoLOG) BEFORE MEALS AND HS SUBQ 08/18/20 06:30 11/16/20 06:29 08/22/20 12:13 Ipratropium [place] (Atrovent) 500 mcg Q4H PRN HHN Shortness of Breath 08/20/20 08:30 08/25/20 08:29 Lorazepam (Ativan 2mg/ml 1ml) 2 mg Q2H PRN IV For Anxiety 08/17/20 15:00 08/24/20 14:59 Ondansetron HCl (Zofran) 4 mg Q6H PRN IVP Nausea & Vomiting 08/17/20 15:00 09/16/20 14:59 Pantoprazole (Protonix) 40 mg DAILY ORAL 08/18/20 09:00 09/17/20 08:59 08/22/20 08:52 Polyethylene Glycol (Miralax) 17 gm DAILYPRN PRN ORAL Constipation 08/17/20 15:00 09/16/20 14:59 Promethazine HCl/ Codeine (Phenergan with Codeine) 5 ml Q4H PRN ORAL For Cough 08/17/20 15:00 09/16/20 14:59 08/20/20 08:24 Assessment/Plan Problems: (1) Interstitial pneumonia (2) History of 2019 novel coronavirus disease (COVID-19) (3) History of hypertension (4) History of CHF (congestive heart failure) (5) History of diabetes mellitus Assessment/Plan looks comfortable CT chest done, results pending all cultures negative COVID - times two no sputum yet Echo reviewed, EF is 60%, BNP is low, CHF unlikely Interstitial pneumonia CT of chest telemetry b/o tachycardia Cecilio Herbert MD Aug 22, 2020 12:19
--- NOTE | 2020-08-22 12:48 | NUR ---
PARTNER ALLIANCE MANAGERCORPORATE MANAGER SI: RESP DISTRESS,COVID 19 PNA T. 97.5 HR 97 RR 20 B/P 128/70 4L NC O2 SAT @ 98% IS: CEFTRIAXONE IV ATROVENT HHN ALBUTEROL HHN HEPARIN SUBC TELE STATUS
--- NOTE | 2020-08-22 12:51 | NUR ---
MARKETING OPERATIONS MANAGER NOTES CLINICALS REVIEWED AND FAXED. Addendum: 08/22/20 at 1441 by OSKAR AVILEZ RN RN SPOKE WITH [address] FROM [employer], TELEPHONE REVIEW GIVEN. FAXED REVIEW AND CT CHEST RESULTS.
--- NOTE | 2020-08-22 13:27 | Surgery Progress Note ---
Surgery Progress Note Subjective Additional Comments doing well no complaints no n/v states he will try to self turn Objective Last 24 Hour Vital Signs Date Time Temp Pulse Resp B/P (MAP) Pulse Ox O2 Delivery O2 Flow Rate FiO2 08/22/20 12:00 97 08/22/20 12:00 97.5 99 20 128/70 (89) 97 08/22/20 09:00 Nasal Cannula 4.0 08/22/20 08:00 97 08/22/20 08:00 97.5 103 20 131/74 (93) 97 08/22/20 04:00 98.8 93 24 112/77 (89) 98 08/22/20 04:00 88 08/22/20 00:00 92 08/22/20 00:00 98.1 92 23 120/77 (91) 97 08/21/20 23:01 98 Nasal Cannula 4.0 36 08/21/20 21:00 Nasal Cannula 4.0 08/21/20 20:00 96 08/21/20 20:00 97.9 96 22 141/72 (95) 97 08/21/20 16:00 98.1 98 20 120/70 (87) 96 I&O Intake and Output 08/21/20 08/22/20 19:00 07:00 Intake Total 730 ml 300 ml Output Total 375 ml 700 ml Balance 355 ml -400 ml Intake Oral 620 ml 300 ml IV Total 110 ml Output Urine Total 375 ml 700 ml # Bowel Movements 1 Dressing: saturated Cardiovascular: RSR Respiratory: decreased breath sounds Abdomen: soft, non-tender, present bowel sounds Extremities: no tenderness, no cyanosis Laboratory Tests Test 08/22/20 05:38 White Blood Count 9.3 K/UL (4.8-10.8) Red Blood Count 3.37 M/UL (4.70-6.10) L Hemoglobin 10.0 G/DL (14.2-18.0) L Hematocrit 31.6 % (42.0-52.0) L Mean Corpuscular Volume 94 FL (80-99) Mean Corpuscular Hemoglobin 29.7 PG (27.0-31.0) Mean Corpuscular Hemoglobin Concent 31.7 G/DL (32.0-36.0) L Red Cell Distribution Width 16.0 % (11.6-14.8) H Platelet Count 460 K/UL (150-450) H Mean Platelet Volume 4.2 FL (6.5-10.1) L Neutrophils (%) (Auto) 60.7 % (45.0-75.0) Lymphocytes (%) (Auto) 22.3 % (20.0-45.0) Monocytes (%) (Auto) 11.4 % (1.0-10.0) H Eosinophils (%) (Auto) 4.6 % (0.0-3.0) H Basophils (%) (Auto) 1.1 % (0.0-2.0) Sodium Level 137 MMOL/L (136-145) Potassium Level 3.9 MMOL/L (3.5-5.1) Chloride Level 102 MMOL/L (98-107) Carbon Dioxide Level 26 MMOL/L (21-32) Anion Gap 9 mmol/L (5-15) Blood Urea Nitrogen 12 mg/dL (7-18) Creatinine 0.9 MG/DL (0.55-1.30) Estimat Glomerular Filtration Rate > 60 mL/min (>60) Glucose Level 130 MG/DL (74-106) H Calcium Level 8.8 MG/DL (8.5-10.1) Plan Problems: (1) Elevated d-dimer (2) Nosocomial pneumonia (3) History of 2019 novel coronavirus disease (COVID-19) (4) Tachycardia (5) Pneumonia (6) Sacral decubitus ulcer Assessment & Plan: PATIENT AWAKE, ALERT AND ABLE TO [id number] SELF WITH MINIMAL ASSISTANCE. O2 VIA NASAL CANULA. SACRUM-STAGE III MEASURES [id number]. WOUND BED WITH 60% SLOUGH AND 40% PINK GRANULATION TISSUE. MINIMAL SERO-SANGUINEOUS DRAINAGE NOTED. SPENCER-WOUND SKIN INTACT. Tx plan: CLEAN WITH SALINE. PAT DRY. APPLY THERAHONEY AND COVER WITH OPTIFOAM DRESSING. REPLACE DRESSING DAILY. PATIENT SHOULD BE REMINDED TO REPOSITION SELF FREQUENTLY. ELEVATE HEELS WITH PILLOWS. TURN Q2H OFF LOAD PRESSURE WITH PILLOWS AIR SOFT MATTRESS NUTRITIONAL OPTIMIZATION WILL FOLLOW WITH RECS DAILY ESTIMATED NEEDS: Needs based on Pulmonary wound 68.5kg 25-35 kcals/kg 0958-2621 total kcals 1.25-1.5 g protein/kg 86-103 g total protein 25-30 mL/kg 1511-5996 total fluid mLs NUTRITION DIAGNOSIS: Increased pro needs r/t wound healing as evidenced by pt w/ stage 3 sacral pressure injury. CURRENT DIET: CCHO MED PO DIET RECOMMENDATIONS: CCHO MED ADDITIONAL RECOMMENDATIONS: 1) Maintain calibrated bed scale wts 2) Wound care: add ROD BID + Vit C 250mg BID + MVI w/ min qd 3) Variable po intake: add Glucerna w/ meals Add high pro snacks in b/w meals (7) History of diabetes mellitus (8) History of CHF (congestive heart failure) (9) History of hypertension (10) Interstitial pneumonia Ernesto Pisano Aug 22, 2020 13:27
--- NOTE | 2020-08-22 13:40 | Infectious Diseases Prog Note ---
Assessment/Plan Assessment: Sepsis Pneumonia- Pulmonary edema Acute hypercapnic resp failure -08/21 CXR:Bilateral infiltrates are unchanged. Cardiomegaly is unchanged. -08/19 CXR: There are unchanged moderate mixed interstitial and alveolar infiltrates bilaterally most likely representing pulmonary edema. -08/17 CXR: Bilateral interstitial and airspace opacities, likely representing moderate pulmonary edema, though superimposed pneumonia is not excluded. Cardiomegaly.. Likely small bilateral pleural effusions. rapid COVID PCR neg Influenza ag screen neg Afebrile Leukocytosis, SP -ucx NTD, BCx NTD hx of COVID19 PNA 07/05/2020 DM2 HTN SNF resident ( [facility]) Plan: Continue empiric Cefepime #6/7 -08/20 SP IV Vancomycin #3 -08/17 SP ZOsyn x1 -f/u cx -Monitor CBC/CMP, temperatures -f/u sp cx, legionella ag urine -aspiration precautions Thank you for consulting [facility]. Will continue to follow along with you. Discussed with RN. Subjective Allergies: Coded Allergies: No Known Allergies (Unverified , 08/17/20) afebrile no leukocytosis Objective Last 24 Hour Vital Signs Date Time Temp Pulse Resp B/P (MAP) Pulse Ox O2 Delivery O2 Flow Rate FiO2 08/22/20 12:00 97 08/22/20 12:00 97.5 99 20 128/70 (89) 97 08/22/20 09:00 Nasal Cannula 4.0 08/22/20 08:00 97 08/22/20 08:00 97.5 103 20 131/74 (93) 97 08/22/20 04:00 98.8 93 24 112/77 (89) 98 08/22/20 04:00 88 08/22/20 00:00 92 08/22/20 00:00 98.1 92 23 120/77 (91) 97 08/21/20 23:01 98 Nasal Cannula 4.0 36 08/21/20 21:00 Nasal Cannula 4.0 08/21/20 20:00 96 08/21/20 20:00 97.9 96 22 141/72 (95) 97 08/21/20 16:00 98.1 98 20 120/70 (87) 96 Height (Feet): 5 Height (Inches): 6.00 Weight (Pounds): 160 General Appearance: no acute distress, other - Frisian speaking male HEENT: normocephalic, atraumatic, anicteric, mucous membranes moist Respiratory: no respiratory distress, no accessory muscle use, other - few scattered rhonchi , islated bibasilar crackles Cardiovascular: normal rate, regular rhythm Abdomen: soft, non tender, non distended Extremities: no edema Skin: rash Neurologic: no motor/sensory deficits, alert, oriented x 3, responsive Musculoskeletal: normal muscle bulk Laboratory Tests Test 08/22/20 05:38 White Blood Count 9.3 K/UL (4.8-10.8) Red Blood Count 3.37 M/UL (4.70-6.10) L Hemoglobin 10.0 G/DL (14.2-18.0) L Hematocrit 31.6 % (42.0-52.0) L Mean Corpuscular Volume 94 FL (80-99) Mean Corpuscular Hemoglobin 29.7 PG (27.0-31.0) Mean Corpuscular Hemoglobin Concent 31.7 G/DL (32.0-36.0) L Red Cell Distribution Width 16.0 % (11.6-14.8) H Platelet Count 460 K/UL (150-450) H Mean Platelet Volume 4.2 FL (6.5-10.1) L Neutrophils (%) (Auto) 60.7 % (45.0-75.0) Lymphocytes (%) (Auto) 22.3 % (20.0-45.0) Monocytes (%) (Auto) 11.4 % (1.0-10.0) H Eosinophils (%) (Auto) 4.6 % (0.0-3.0) H Basophils (%) (Auto) 1.1 % (0.0-2.0) Sodium Level 137 MMOL/L (136-145) Potassium Level 3.9 MMOL/L (3.5-5.1) Chloride Level 102 MMOL/L (98-107) Carbon Dioxide Level 26 MMOL/L (21-32) Anion Gap 9 mmol/L (5-15) Blood Urea Nitrogen 12 mg/dL (7-18) Creatinine 0.9 MG/DL (0.55-1.30) Estimat Glomerular Filtration Rate > 60 mL/min (>60) Glucose Level 130 MG/DL (74-106) H Calcium Level 8.8 MG/DL (8.5-10.1) Current Medications Medications (Trade) Dose Ordered Sig/Jonny Route PRN Reason Start Time Stop Time Status Last Admin Dose Admin Acetaminophen (Tylenol) 650 mg Q4H PRN ORAL Temp >100.5 08/17/20 15:00 09/16/20 14:59 Albuterol/ Ipratropium (Albuterol/ Ipratropium) 3 ml Q4H PRN HHN Shortness of Breath 08/17/20 15:00 08/22/20 14:59 08/21/20 09:35 Ascorbic Acid (Vitamin C) 250 mg TWICE A DAY ORAL 08/22/20 18:00 09/21/20 17:59 Cefepime HCl 2 gm/ Sodium Chloride 110 ml @ 220 mls/hr EVERY 12 HOURS IV 08/17/20 21:00 08/24/20 20:59 08/22/20 08:55 Dextrose (Dextrose 50%) 25 ml Q30M PRN IV Hypoglycemia 08/17/20 23:30 11/15/20 23:29 Dextrose (Dextrose 50%) 50 ml Q30M PRN IV Hypoglycemia 08/17/20 23:30 11/15/20 23:29 Heparin Sodium (Porcine) (Heparin 5000 units/ml) 5,000 units EVERY 12 HOURS SUBQ 08/17/20 21:00 10/01/20 20:59 08/22/20 08:53 Insulin Aspart (NovoLOG) BEFORE MEALS AND HS SUBQ 08/18/20 06:30 11/16/20 06:29 08/22/20 12:13 Ipratropium [place] (Atrovent) 500 mcg Q4H PRN HHN Shortness of Breath 08/20/20 08:30 08/25/20 08:29 Lorazepam (Ativan 2mg/ml 1ml) 2 mg Q2H PRN IV For Anxiety 08/17/20 15:00 08/24/20 14:59 Multivitamins (Multivitamins) 1 tab DAILY ORAL 08/23/20 09:00 09/22/20 08:59 Ondansetron HCl (Zofran) 4 mg Q6H PRN IVP Nausea & Vomiting 08/17/20 15:00 09/16/20 14:59 Pantoprazole (Protonix) 40 mg DAILY ORAL 08/18/20 09:00 09/17/20 08:59 08/22/20 08:52 Polyethylene Glycol (Miralax) 17 gm DAILYPRN PRN ORAL Constipation 08/17/20 15:00 09/16/20 14:59 Promethazine HCl/ Codeine (Phenergan with Codeine) 5 ml Q4H PRN ORAL For Cough 08/17/20 15:00 09/16/20 14:59 08/20/20 08:24 Brianda Sterling M.D. Aug 22, 2020 13:40
--- NOTE | 2020-08-22 14:04 | Diagnostic Imaging Report ---
Clinical Indication: Dyspnea Technique: IV administration nonionic contrast. Spiral acquisition obtained through the chest. Multiplanar reconstructions generated. Total dose length product 191 mGycm. CTDIvol(s) 2, 47, 6 mGy. Dose reduction achieved using automated exposure control Comparison: none Findings: There are fairly extensive and diffuse bilateral parenchymal opacities, the predominant pattern being fairly generalized intralobular septal thickening manifested by reticular opacities. There is some areas of consolidation, volume loss, and architectural distortion seen in the left lung apex, the right perihilar region, the right lung base, and to a lesser extent the left lung base. There is suggestion of some bronchiectasis at the lung bases bilaterally. There is considerable compressive atelectasis of portions of the posterior upper lobes bilaterally. There is a small right and trace left pleural effusion The heart is upper limits normal in size. No pericardial effusion. No mediastinal or hilar mass or adenopathy. The thyroid is slightly heterogeneous and irregular without definite discrete nodule. The bones demonstrate degenerative spondylosis changes. There is a small to moderate sliding-type hiatal hernia. Included upper abdominal anatomy is unremarkable. Impression: Diffuse bilateral parenchymal disease, manifested by reticular opacities likely representing intralobular septal thickening.. Some associated areas of consolidation. Main differential considerations are pulmonary edema, acute interstitial pneumonia, viral pneumonia, cryptogenic organizing pneumonia, nonspecific interstitial pneumonia. Small right and trace left pleural effusions Small to moderate sliding-type hiatal hernia The CT scanner at [facility] is accredited by the [employer] and the scans are performed using protocols designed to limit radiation exposure to as low as reasonably achievable to attain images of sufficient resolution adequate for diagnostic evaluation.
[2020-08-22 16:00] VITALS: BP 148/76
--- NOTE | 2020-08-22 17:39 | Internal Med Progress Note ---
Subjective Date of Service: Aug 22, 2020 Physician Name CrisDimitri Attending Physician Rc Evans MD Current Medications Medications (Trade) Dose Ordered Sig/Jonny Route PRN Reason Start Time Stop Time Status Last Admin Dose Admin Acetaminophen (Tylenol) 650 mg Q4H PRN ORAL Temp >100.5 08/17/20 15:00 09/16/20 14:59 Ascorbic Acid (Vitamin C) 250 mg TWICE A DAY ORAL 08/22/20 18:00 09/21/20 17:59 Cefepime HCl 2 gm/ Sodium Chloride 110 ml @ 220 mls/hr EVERY 12 HOURS IV 08/17/20 21:00 08/24/20 20:59 08/22/20 08:55 Dextrose (Dextrose 50%) 25 ml Q30M PRN IV Hypoglycemia 08/17/20 23:30 11/15/20 23:29 Dextrose (Dextrose 50%) 50 ml Q30M PRN IV Hypoglycemia 08/17/20 23:30 11/15/20 23:29 Heparin Sodium (Porcine) (Heparin 5000 units/ml) 5,000 units EVERY 12 HOURS SUBQ 08/17/20 21:00 10/01/20 20:59 08/22/20 08:53 Insulin Aspart (NovoLOG) BEFORE MEALS AND HS SUBQ 08/18/20 06:30 11/16/20 06:29 08/22/20 17:02 Ipratropium [place] (Atrovent) 500 mcg Q4H PRN HHN Shortness of Breath 08/20/20 08:30 08/25/20 08:29 Lorazepam (Ativan 2mg/ml 1ml) 2 mg Q2H PRN IV For Anxiety 08/17/20 15:00 08/24/20 14:59 Multivitamins (Multivitamins) 1 tab DAILY ORAL 08/23/20 09:00 09/22/20 08:59 Ondansetron HCl (Zofran) 4 mg Q6H PRN IVP Nausea & Vomiting 08/17/20 15:00 09/16/20 14:59 Pantoprazole (Protonix) 40 mg DAILY ORAL 08/18/20 09:00 09/17/20 08:59 08/22/20 08:52 Polyethylene Glycol (Miralax) 17 gm DAILYPRN PRN ORAL Constipation 08/17/20 15:00 09/16/20 14:59 Promethazine HCl/ Codeine (Phenergan with Codeine) 5 ml Q4H PRN ORAL For Cough 08/17/20 15:00 09/16/20 14:59 08/20/20 08:24 Allergies: Coded Allergies: No Known Allergies (Unverified , 08/17/20) ROS Limited/Unobtainable: Yes Subjective 60 YO M admitted with shortness of breath. Now pulmonary edema and pneumonia. Cover for Int Aurelio-Dr Evans Objective Last Vital Signs Date Time Temp Pulse Resp B/P (MAP) Pulse Ox O2 Delivery O2 Flow Rate FiO2 08/22/20 16:00 97.9 89 20 148/76 (100) 98 08/22/20 09:00 Nasal Cannula 4.0 08/21/20 23:01 36 Laboratory Tests Test 08/22/20 05:38 White Blood Count 9.3 K/UL (4.8-10.8) Red Blood Count 3.37 M/UL (4.70-6.10) L Hemoglobin 10.0 G/DL (14.2-18.0) L Hematocrit 31.6 % (42.0-52.0) L Mean Corpuscular Volume 94 FL (80-99) Mean Corpuscular Hemoglobin 29.7 PG (27.0-31.0) Mean Corpuscular Hemoglobin Concent 31.7 G/DL (32.0-36.0) L Red Cell Distribution Width 16.0 % (11.6-14.8) H Platelet Count 460 K/UL (150-450) H Mean Platelet Volume 4.2 FL (6.5-10.1) L Neutrophils (%) (Auto) 60.7 % (45.0-75.0) Lymphocytes (%) (Auto) 22.3 % (20.0-45.0) Monocytes (%) (Auto) 11.4 % (1.0-10.0) H Eosinophils (%) (Auto) 4.6 % (0.0-3.0) H Basophils (%) (Auto) 1.1 % (0.0-2.0) Sodium Level 137 MMOL/L (136-145) Potassium Level 3.9 MMOL/L (3.5-5.1) Chloride Level 102 MMOL/L (98-107) Carbon Dioxide Level 26 MMOL/L (21-32) Anion Gap 9 mmol/L (5-15) Blood Urea Nitrogen 12 mg/dL (7-18) Creatinine 0.9 MG/DL (0.55-1.30) Estimat Glomerular Filtration Rate > 60 mL/min (>60) Glucose Level 130 MG/DL (74-106) H Calcium Level 8.8 MG/DL (8.5-10.1) Intake and Output 08/21/20 08/22/20 19:00 07:00 Intake Total 730 ml 300 ml Output Total 375 ml 700 ml Balance 355 ml -400 ml Intake Oral 620 ml 300 ml IV Total 110 ml Output Urine Total 375 ml 700 ml # Bowel Movements 1 Objective PHYSICAL EXAMINATION: GENERAL: The patient is awake, responsive, no acute distress. HEAD AND NECK: Pupils are equal and reactive to light. Extraocular movements intact. NECK: Supple. No JVD. LUNGS: Good air entry. No wheezing or rales. HEART: S1, S2. Tachycardic. No murmur or gallops. ABDOMEN: Soft, nondistended, nontender. Positive bowel sounds. Mildly obese extremities. No cyanosis, clubbing, edema. NEUROLOGIC: parking technician II to XII grossly intact. Motor is 5+, symmetric. Gait was not assessed due to the patient's status. RECTAL AND GENITOURINARY: Refused and deferred. PSYCHIATRIC: Mood and affect are intact. Assessment/Plan Assessment/Plan ASSESSMENT: 1. Shortness of breath 2. Leukocytosis, resolving 3. Hypertension. 4. Diabetes type 2. 5. Obesity. 6. Hypoxemia. 7. History of COVID-19 infection in June 2020. 8. pneumonia PLAN: 1. Admit the patient to monitored unit. 2. antibiotics = cefepime. S/P vanco 3. Code status is full code. 4. DVT prophylaxis, heparin subcu. 5. Pulmonary consultation = Dr. Herbert. 6. ID=Dimitri Mejia MD Aug 22, 2020 17:39
[2020-08-22] MEDS: Ascorbic Acid 500mg tab ORAL SCH (18:13)
--- NOTE | 2020-08-22 19:20 | NUR ---
NURSE HAND-OFF REPORT: Important Events on Shift: CT showed R lower lobe plueral effusions. Patient Status: Stable Diet: Regular Pending Orders: Pending Results/Labs: Pending MD notification: Latest Vital Signs: Temperature 97.9 , Pulse 97 , B/P 148 /76 , Respiratory Rate 20 , O2 SAT 97 , Nasal Cannula, O2 Flow Rate 4.0 . Vital Sign Comment: EKG Rhythm: Sinus Rhythm Rhythm change?: N MD Notified?: N - MD Response: Latest Beltrán Fall Score: 35 Fall Risk: Medium Risk Safety Measures: Call light Within Reach, Bed Alarm Zone 1, Side Rails Side Rails x3, Bed position Low and Locked. Fall Precautions: Yellow Socks Yellow Gown Door Sign Patient Fall Education Report given to
--- NOTE | 2020-08-22 19:46 | NUR ---
NURSE HAND-OFF REPORT: Important Events on Shift: Patient Status: alert Diet: ccho med Pending Orders: Pending Results/Labs: Pending MD notification: Latest Vital Signs: Temperature 97.9 , Pulse 97 , B/P 148 /76 , Respiratory Rate 20 , O2 SAT 97 , Nasal Cannula, O2 Flow Rate 4.0 . Vital Sign Comment: EKG Rhythm: Sinus Rhythm Rhythm change?: N MD Notified?: N - MD Response: Latest Beltrán Fall Score: 35 Fall Risk: Medium Risk Safety Measures: Call light Within Reach, Bed Alarm Zone 1, Side Rails Side Rails x3, Bed position Low and Locked. Fall Precautions: Yellow Socks Yellow Gown Door Sign Patient Fall Education Report given to Tracey COLINDRES.
--- NOTE | 2020-08-22 19:50 | NUR ---
NURSE NOTES: Important Events on Shift: Received report from Mady Garcia RN and Shavon Mays RN. Pt in stable condition, denies any pain at this time. In bed, awake, watching TV, AxO x 4. No signs or symptoms of distress noted at this time. Will continue plan of care and close monitoring. Patient Status: Stable Diet: CCHO med Pending Orders: none Pending Results/Labs: BMP, CBC Pending MD notification: NONE Latest Vital Signs: Temperature 97.9 , Pulse 97 , B/P 148 /76 , Respiratory Rate 20 , O2 SAT 97 , Nasal Cannula, O2 Flow Rate 4.0 . Vital Sign Comment: Stable EKG Rhythm: Sinus Rhythm Rhythm change?: N MD Notified?: N - MD Response: Latest Beltrán Fall Score: 35 Fall Risk: Medium Risk Safety Measures: Call light Within Reach, Bed Alarm Zone 1, Side Rails Side Rails x3, Bed position Low and Locked. Fall Precautions: Yellow Socks YES Yellow Gown YES Door Sign YES Patient Fall Education YES
[2020-08-22 20:00] VITALS: BP 133/72
[2020-08-23 04:00] VITALS: BP 134/77
[2020-08-23] MEDS: NovoLOG Insulin Flexpen SUBQ SCH ×3 (06:58→16:45)
--- NOTE | 2020-08-23 07:12 | NUR ---
NURSE NOTES: Report received from BERNADINE Webb. Patient is awake on bed, alert and oriented x 4. Oriented to room and telemetry unit. 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 On oxygen via nasal cannula @ 2Lpm, sating 95%. Pt has a lopez catheter 16F, drained via gravity with [id number] urine. Safety measures are in place, bed in lowest and locked position, side rails up x 2 and bed alarm on. Call light and bedside table within reach. Will continue plan of care.
[2020-08-23 07:31] LABS: EOSINOPHILS % (AUTO) 4.8 % (0.0-3.0); HEMOGLOBIN 9.9 G/DL (14.2-18.0); LYMPHOCYTES % (AUTO) 20.8 % (20.0-45.0); MEAN CORPUSCULAR VOLUME 94 FL (80-99); MONOCYTES % (AUTO) 13.6 % (1.0-10.0); NEUTROPHILS % (AUTO) 59.8 % (45.0-75.0); PLATELET COUNT 437 K/UL (150-450); RED CELL DISTRIBUTION WIDTH 16.1 % (11.6-14.8)
[2020-08-23 07:48] VITALS: BP 129/79
--- NOTE | 2020-08-23 07:48 | NUR ---
NURSE HAND-OFF REPORT: Important Events on Shift: None Patient Status: Stable Diet: renal Pending Orders: none Pending Results/Labs: none Pending MD notification: none Latest Vital Signs: Temperature 98.6 , Pulse 89 , B/P 134 /77 , Respiratory Rate 24 , O2 SAT 98 , Nasal Cannula, O2 Flow Rate 4.0 . Vital Sign Comment: EKG Rhythm: Sinus Rhythm Rhythm change?: N MD Notified?: N - MD Response: Latest Beltrán Fall Score: 35 Fall Risk: Medium Risk Safety Measures: Call light Within Reach, Bed Alarm Zone 1, Side Rails Side Rails x3, Bed position Low and Locked. Fall Precautions: Yellow Socks Yellow Gown Door Sign Patient Fall Education Report given to Mady Garcia RN.
[2020-08-23 07:51] LABS: ANION GAP 8 mmol/L (5-15); BLOOD UREA NITROGEN 10 mg/dL (7-18); CALCIUM 8.6 MG/DL (8.5-10.1); CARBON DIOXIDE 27 MMOL/L (21-32); CHLORIDE 102 MMOL/L (98-107); CREATININE 0.9 MG/DL (0.55-1.30); POTASSIUM 3.5 MMOL/L (3.5-5.1); SODIUM 137 MMOL/L (136-145)
[2020-08-23] MEDS: Ascorbic Acid 500mg tab ORAL SCH ×2 (09:01→17:23)
[2020-08-23] MEDS: Cefepime HCl 2 GM in NS 110 ML IV SCH (09:02)
[2020-08-23] MEDS: Heparin 5000 units/ml inj SUBQ SCH (09:02)
--- NOTE | 2020-08-23 09:43 | Pulmonology Progress Note ---
Subjective ROS Limited/Unobtainable: Yes Interval Events: on nasal cannula Allergies: Coded Allergies: No Known Allergies (Unverified , 08/17/20) Objective Last 24 Hour Vital Signs Date Time Temp Pulse Resp B/P (MAP) Pulse Ox O2 Delivery O2 Flow Rate FiO2 08/23/20 07:50 Nasal Cannula 4.0 08/23/20 07:48 97.8 91 21 129/79 (96) 96 08/23/20 04:00 98.6 94 24 134/77 (96) 98 08/23/20 04:00 89 08/23/20 00:00 87 08/22/20 21:00 Nasal Cannula 4.0 08/22/20 20:00 109 08/22/20 20:00 99.0 94 24 133/72 (92) 98 08/22/20 18:52 97 Nasal Cannula 4.0 36 08/22/20 16:00 97.9 89 20 148/76 (100) 98 08/22/20 16:00 97 08/22/20 12:00 97 08/22/20 12:00 97.5 99 20 128/70 (89) 97 Intake and Output 08/22/20 08/23/20 19:00 07:00 Intake Total 300 ml 250 ml Output Total 900 ml 600 ml Balance -600 ml -350 ml Intake Oral 300 ml 250 ml Output Urine Total 900 ml 600 ml General Appearance: no acute distress, other - Cypriot speaking male HEENT: normocephalic, atraumatic, anicteric, mucous membranes moist Respiratory: no respiratory distress, no accessory muscle use, other - few sca ttered rhonchi , islated bibasilar crackles Cardiovascular: normal rate, regular rhythm Abdomen: soft, non tender, non distended Extremities: no edema Skin: rash Neurologic: no motor/sensory deficits, alert, oriented x 3, responsive Musculoskeletal: normal muscle bulk Laboratory Tests 08/23/20 05:46: White Blood Count 9.0, Red Blood Count 3.30L, Hemoglobin 9.9L, Hematocrit 31.0L, Mean Corpuscular Volume 94, Mean Corpuscular Hemoglobin 30.1, Mean Corpuscular Hemoglobin Concent 32.0, Red Cell Distribution Width 16.1H, Platelet Count 437, Mean Platelet Volume 4.3L, Neutrophils (%) (Auto) 59.8, Lymphocytes (%) (Auto) 20.8, Monocytes (%) (Auto) 13.6H, Eosinophils (%) (Auto) 4.8H, Basophils (%) (Auto) 1.0, Sodium Level 137, Potassium Level 3.5, Chloride Level 102, Carbon Dioxide Level 27, Anion Gap 8, Blood Urea Nitrogen 10, Creatinine 0.9, Estimat Glomerular Filtration Rate > 60, Glucose Level 155H, Calcium Level 8.6 08/23/20 06:34: POC Whole Blood Glucose 161H Current Medications Medications (Trade) Dose Ordered Sig/Jonny Route PRN Reason Start Time Stop Time Status Last Admin Dose Admin Acetaminophen (Tylenol) 650 mg Q4H PRN ORAL Temp >100.5 08/17/20 15:00 09/16/20 14:59 Ascorbic Acid (Vitamin C) 250 mg TWICE A DAY ORAL 08/22/20 18:00 09/21/20 17:59 08/23/20 09:01 Cefepime HCl 2 gm/ Sodium Chloride 110 ml @ 220 mls/hr EVERY 12 HOURS IV 08/17/20 21:00 08/24/20 20:59 08/23/20 09:02 Dextrose (Dextrose 50%) 25 ml Q30M PRN IV Hypoglycemia 08/17/20 23:30 11/15/20 23:29 Dextrose (Dextrose 50%) 50 ml Q30M PRN IV Hypoglycemia 08/17/20 23:30 11/15/20 23:29 Heparin Sodium (Porcine) (Heparin 5000 units/ml) 5,000 units EVERY 12 HOURS SUBQ 08/17/20 21:00 10/01/20 20:59 08/23/20 09:02 Insulin Aspart (NovoLOG) BEFORE MEALS AND HS SUBQ 08/18/20 06:30 11/16/20 06:29 08/23/20 06:58 Ipratropium [place] (Atrovent) 500 mcg Q4H PRN HHN Shortness of Breath 08/20/20 08:30 08/25/20 08:29 Lorazepam (Ativan 2mg/ml 1ml) 2 mg Q2H PRN IV For Anxiety 08/17/20 15:00 08/24/20 14:59 Multivitamins (Multivitamins) 1 tab DAILY ORAL 08/23/20 09:00 09/22/20 08:59 08/23/20 09:01 Ondansetron HCl (Zofran) 4 mg Q6H PRN IVP Nausea & Vomiting 08/17/20 15:00 09/16/20 14:59 Pantoprazole (Protonix) 40 mg DAILY ORAL 08/18/20 09:00 09/17/20 08:59 08/23/20 09:01 Polyethylene Glycol (Miralax) 17 gm DAILYPRN PRN ORAL Constipation 08/17/20 15:00 09/16/20 14:59 Promethazine HCl/ Codeine (Phenergan with Codeine) 5 ml Q4H PRN ORAL For Cough 08/17/20 15:00 09/16/20 14:59 08/20/20 08:24 Assessment/Plan Problems: (1) Interstitial pneumonia (2) History of 2019 novel coronavirus disease (COVID-19) (3) History of hypertension (4) History of CHF (congestive heart failure) (5) History of diabetes mellitus Assessment/Plan coughing up large amount of secretions looks comfortable all cultures negative COVID - times two no sputum yet Echo reviewed, EF is 60%, BNP is low, CHF unlikely Interstitial pneumonia CT reviewed: Diffuse bilateral parenchymal disease, manifested by reticular opacities likely representing intralobular septal thickening.. Some associated areas of consolidation. Main differential considerations are pulmonary edema, acute interstitial pneumonia, viral pneumonia, cryptogenic organizing pneumonia, nonspecific interstitial pneumonia. Cecilio Herbert MD Aug 23, 2020 09:43
--- NOTE | 2020-08-23 10:20 | NUR ---
PT EVALUATION NOTE Patient seen for initial evaluation and treatment initiated. Patient presents with generalized weakness and limited activity tolerance due to SOB. Patient requires min/mod assist for bed mobility. Patient desaturated in sitting and was unable to stand or ambulate. Patient will benefit from skilled inpatient PT intervention to increase strength, postural stability and endurance for improved level of functional mobility and safety. Recommend discharge to SNF for continued rehab once medically cleared by MD. Addendum: 08/23/20 at 1305 by AIDAN JASSO PT Amended: Links added.
[2020-08-23 12:00] VITALS: BP 144/73
[2020-08-23] MEDS ORDERED: NOVOLOG100 UNITS1 SUBQ (12:32)
[2020-08-23] MEDS ORDERED: HEPARIN SO5000 UNIT2 SUBQ (12:32)
[2020-08-23] MEDS ORDERED: PANTOPRAZOLE SO40 MG ORAL (12:32)
[2020-08-23] MEDS ORDERED: IPRATROPIU0.2 MG/1 M HHN (12:32)
[2020-08-23] MEDS ORDERED: CEFEPIME-D2 GM/50 ML IVPB (12:32)
--- NOTE | 2020-08-23 12:33 | Internal Med Progress Note ---
Subjective Date of Service: Aug 23, 2020 Physician Name Dimitri Lynch Attending Physician Rc Evans MD Current Medications Medications (Trade) Dose Ordered Sig/Jonny Route PRN Reason Start Time Stop Time Status Last Admin Dose Admin Acetaminophen (Tylenol) 650 mg Q4H PRN ORAL Temp >100.5 08/17/20 15:00 09/16/20 14:59 Ascorbic Acid (Vitamin C) 250 mg TWICE A DAY ORAL 08/22/20 18:00 09/21/20 17:59 08/23/20 09:01 Cefepime HCl 2 gm/ Sodium Chloride 110 ml @ 220 mls/hr EVERY 12 HOURS IV 08/17/20 21:00 08/24/20 20:59 08/23/20 09:02 Dextrose (Dextrose 50%) 25 ml Q30M PRN IV Hypoglycemia 08/17/20 23:30 11/15/20 23:29 Dextrose (Dextrose 50%) 50 ml Q30M PRN IV Hypoglycemia 08/17/20 23:30 11/15/20 23:29 Heparin Sodium (Porcine) (Heparin 5000 units/ml) 5,000 units EVERY 12 HOURS SUBQ 08/17/20 21:00 10/01/20 20:59 08/23/20 09:02 Insulin Aspart (NovoLOG) BEFORE MEALS AND HS SUBQ 08/18/20 06:30 11/16/20 06:29 08/23/20 12:02 Ipratropium [place] (Atrovent) 500 mcg Q4H PRN HHN Shortness of Breath 08/20/20 08:30 08/25/20 08:29 Lorazepam (Ativan 2mg/ml 1ml) 2 mg Q2H PRN IV For Anxiety 08/17/20 15:00 08/24/20 14:59 Multivitamins (Multivitamins) 1 tab DAILY ORAL 08/23/20 09:00 09/22/20 08:59 08/23/20 09:01 Ondansetron HCl (Zofran) 4 mg Q6H PRN IVP Nausea & Vomiting 08/17/20 15:00 09/16/20 14:59 Pantoprazole (Protonix) 40 mg DAILY ORAL 08/18/20 09:00 09/17/20 08:59 08/23/20 09:01 Polyethylene Glycol (Miralax) 17 gm DAILYPRN PRN ORAL Constipation 08/17/20 15:00 09/16/20 14:59 Promethazine HCl/ Codeine (Phenergan with Codeine) 5 ml Q4H PRN ORAL For Cough 08/17/20 15:00 09/16/20 14:59 08/20/20 08:24 Allergies: Coded Allergies: No Known Allergies (Unverified , 08/17/20) ROS Limited/Unobtainable: No Constitutional: Reports: no symptoms HEENT: Reports: no symptoms Cardiovascular: Reports: no symptoms Respiratory: Reports: no symptoms Gastrointestinal/Abdominal: Reports: no symptoms Genitourinary: Reports: no symptoms Subjective 60 YO M admitted with shortness of breath. Now pulmonary edema and pneumonia. Cover for Int Aurelio-Dr Evans Objective Last Vital Signs Date Time Temp Pulse Resp B/P (MAP) Pulse Ox O2 Delivery O2 Flow Rate FiO2 08/23/20 08:00 92 08/23/20 07:50 Nasal Cannula 4.0 08/23/20 07:48 97.8 21 129/79 (96) 96 08/22/20 18:52 36 Laboratory Tests Test 08/23/20 05:46 08/23/20 06:34 08/23/20 11:59 White Blood Count 9.0 K/UL (4.8-10.8) Red Blood Count 3.30 M/UL (4.70-6.10) L Hemoglobin 9.9 G/DL (14.2-18.0) L Hematocrit 31.0 % (42.0-52.0) L Mean Corpuscular Volume 94 FL (80-99) Mean Corpuscular Hemoglobin 30.1 PG (27.0-31.0) Mean Corpuscular Hemoglobin Concent 32.0 G/DL (32.0-36.0) Red Cell Distribution Width 16.1 % (11.6-14.8) H Platelet Count 437 K/UL (150-450) Mean Platelet Volume 4.3 FL (6.5-10.1) L Neutrophils (%) (Auto) 59.8 % (45.0-75.0) Lymphocytes (%) (Auto) 20.8 % (20.0-45.0) Monocytes (%) (Auto) 13.6 % (1.0-10.0) H Eosinophils (%) (Auto) 4.8 % (0.0-3.0) H Basophils (%) (Auto) 1.0 % (0.0-2.0) Sodium Level 137 MMOL/L (136-145) Potassium Level 3.5 MMOL/L (3.5-5.1) Chloride Level 102 MMOL/L (98-107) Carbon Dioxide Level 27 MMOL/L (21-32) Anion Gap 8 mmol/L (5-15) Blood Urea Nitrogen 10 mg/dL (7-18) Creatinine 0.9 MG/DL (0.55-1.30) Estimat Glomerular Filtration Rate > 60 mL/min (>60) Glucose Level 155 MG/DL (74-106) H Calcium Level 8.6 MG/DL (8.5-10.1) POC Whole Blood Glucose 161 MG/DL (74-106) H 269 MG/DL (74-106) H Intake and Output 08/22/20 08/23/20 19:00 07:00 Intake Total 300 ml 250 ml Output Total 900 ml 600 ml Balance -600 ml -350 ml Intake Oral 300 ml 250 ml Output Urine Total 900 ml 600 ml Objective PHYSICAL EXAMINATION: GENERAL: The patient is awake, responsive, no acute distress. HEAD AND NECK: Pupils are equal and reactive to light. Extraocular movements intact. NECK: Supple. No JVD. LUNGS: Good air entry. No wheezing or rales. HEART: S1, S2. Tachycardic. No murmur or gallops. ABDOMEN: Soft, nondistended, nontender. Positive bowel sounds. Mildly obese extremities. No cyanosis, clubbing, edema. NEUROLOGIC: blunger II to XII grossly intact. Motor is 5+, symmetric. Gait was not assessed due to the patient's status. RECTAL AND GENITOURINARY: Refused and deferred. PSYCHIATRIC: Mood and affect are intact. Assessment/Plan Assessment/Plan ASSESSMENT: 1. Shortness of breath 2. Leukocytosis, resolving 3. Hypertension. 4. Diabetes type 2. 5. Obesity. 6. Hypoxemia. 7. History of COVID-19 infection in June 2020. 8. pneumonia PLAN: 1. Admit the patient to monitored unit. 2. antibiotics = cefepime D # 7/10 S/P vanco 3. Code status is full code. 4. DVT prophylaxis, heparin subcu. 5. Pulmonary consultation = Dr. Herbert. 6. ID=Dr Sterling 7. [facility] Dimitri Lynch MD Aug 23, 2020 12:33
--- NOTE | 2020-08-23 12:46 | NUR ---
CASE MANAGEMENT:REVIEW 08/23/20 SI: PNEUMONIA 97.8 91 21 129/79 96% ON 4L/NC H/H-9.9/31.0 GLUCOSE+269 IS: IV CEFEPIME Q12 HEPARIN SQ Q12 MVI PO QD PROTONIX PO QD : TELEMETRY STATUS DCP: FROM [facility] JESSICA HERNANDEZ PLAN: DC BACK TO SNF TODAY CONTINUE IV CEFEPIME FOR 2 MORE DAYS
--- NOTE | 2020-08-23 12:53 | Infectious Diseases Prog Note ---
Assessment/Plan Assessment: Sepsis Pneumonia- Pulmonary edema Acute hypercapnic resp failure -08/22 CT chest w/: Diffuse bilateral parenchymal disease, manifested by reticular opacities likely representing intralobular septal thickening.. Some associated areas of consolidation. Main differential considerations are pulmonary edema, acute interstitial pneumonia, viral pneumonia, cryptogenic organizing pneumonia, nonspecific interstitial pneumonia. Small right and trace left pleural effusions Small to moderate sliding-type hiatal hernia -08/21 CXR:Bilateral infiltrates are unchanged. Cardiomegaly is unchanged. -08/19 CXR: There are unchanged moderate mixed interstitial and alveolar infiltrates bilaterally most likely representing pulmonary edema. -08/17 CXR: Bilateral interstitial and airspace opacities, likely representing moderate pulmonary edema, though superimposed pneumonia is not excluded. Cardiomegaly.. Likely small bilateral pleural effusions. rapid COVID PCR neg Influenza ag screen, legionella ag urine neg Afebrile Leukocytosis, SP -ucx Neg, BCx Neg hx of COVID19 PNA 07/05/2020 DM2 HTN SNF resident ( [facility]) Plan: Continue empiric Cefepime #7/ -08/20 SP IV Vancomycin #3 -08/17 SP ZOsyn x1 -f/u cx -Monitor CBC/CMP, temperatures -aspiration precautions Thank you for consulting [facility]. Will continue to follow along with you. Discussed with RN. Subjective Allergies: Coded Allergies: No Known Allergies (Unverified , 08/17/20) afebrile no leukocytosis Bcx neg Objective Last 24 Hour Vital Signs Date Time Temp Pulse Resp B/P (MAP) Pulse Ox O2 Delivery O2 Flow Rate FiO2 08/23/20 08:00 92 08/23/20 07:50 Nasal Cannula 4.0 08/23/20 07:48 97.8 91 21 129/79 (96) 96 08/23/20 04:00 98.6 94 24 134/77 (96) 98 08/23/20 04:00 89 08/23/20 00:00 87 08/22/20 21:00 Nasal Cannula 4.0 08/22/20 20:00 109 08/22/20 20:00 99.0 94 24 133/72 (92) 98 08/22/20 18:52 97 Nasal Cannula 4.0 36 08/22/20 16:00 97.9 89 20 148/76 (100) 98 08/22/20 16:00 97 Height (Feet): 5 Height (Inches): 6.00 Weight (Pounds): 160 General Appearance: no acute distress, other - Sinhala speaking male HEENT: normocephalic, atraumatic, anicteric, mucous membranes moist Respiratory: no respiratory distress, no accessory muscle use, other - few scattered rhonchi , islated bibasilar crackles Cardiovascular: normal rate, regular rhythm Abdomen: soft, non tender, non distended Extremities: no edema Skin: rash Neurologic: no motor/sensory deficits, alert, oriented x 3, responsive Musculoskeletal: normal muscle bulk Laboratory Tests Test 08/23/20 05:46 08/23/20 06:34 08/23/20 11:59 White Blood Count 9.0 K/UL (4.8-10.8) Red Blood Count 3.30 M/UL (4.70-6.10) L Hemoglobin 9.9 G/DL (14.2-18.0) L Hematocrit 31.0 % (42.0-52.0) L Mean Corpuscular Volume 94 FL (80-99) Mean Corpuscular Hemoglobin 30.1 PG (27.0-31.0) Mean Corpuscular Hemoglobin Concent 32.0 G/DL (32.0-36.0) Red Cell Distribution Width 16.1 % (11.6-14.8) H Platelet Count 437 K/UL (150-450) Mean Platelet Volume 4.3 FL (6.5-10.1) L Neutrophils (%) (Auto) 59.8 % (45.0-75.0) Lymphocytes (%) (Auto) 20.8 % (20.0-45.0) Monocytes (%) (Auto) 13.6 % (1.0-10.0) H Eosinophils (%) (Auto) 4.8 % (0.0-3.0) H Basophils (%) (Auto) 1.0 % (0.0-2.0) Sodium Level 137 MMOL/L (136-145) Potassium Level 3.5 MMOL/L (3.5-5.1) Chloride Level 102 MMOL/L (98-107) Carbon Dioxide Level 27 MMOL/L (21-32) Anion Gap 8 mmol/L (5-15) Blood Urea Nitrogen 10 mg/dL (7-18) Creatinine 0.9 MG/DL (0.55-1.30) Estimat Glomerular Filtration Rate > 60 mL/min (>60) Glucose Level 155 MG/DL (74-106) H Calcium Level 8.6 MG/DL (8.5-10.1) POC Whole Blood Glucose 161 MG/DL (74-106) H 269 MG/DL (74-106) H Current Medications Medications (Trade) Dose Ordered Sig/Jonny Route PRN Reason Start Time Stop Time Status Last Admin Dose Admin Acetaminophen (Tylenol) 650 mg Q4H PRN ORAL Temp >100.5 08/17/20 15:00 09/16/20 14:59 Ascorbic Acid (Vitamin C) 250 mg TWICE A DAY ORAL 08/22/20 18:00 09/21/20 17:59 08/23/20 09:01 Cefepime HCl 2 gm/ Sodium Chloride 110 ml @ 220 mls/hr EVERY 12 HOURS IV 08/17/20 21:00 08/24/20 20:59 08/23/20 09:02 Dextrose (Dextrose 50%) 25 ml Q30M PRN IV Hypoglycemia 08/17/20 23:30 11/15/20 23:29 Dextrose (Dextrose 50%) 50 ml Q30M PRN IV Hypoglycemia 08/17/20 23:30 11/15/20 23:29 Heparin Sodium (Porcine) (Heparin 5000 units/ml) 5,000 units EVERY 12 HOURS SUBQ 08/17/20 21:00 10/01/20 20:59 08/23/20 09:02 Insulin Aspart (NovoLOG) BEFORE MEALS AND HS SUBQ 08/18/20 06:30 11/16/20 06:29 08/23/20 12:02 Ipratropium [place] (Atrovent) 500 mcg Q4H PRN HHN Shortness of Breath 08/20/20 08:30 08/25/20 08:29 Lorazepam (Ativan 2mg/ml 1ml) 2 mg Q2H PRN IV For Anxiety 08/17/20 15:00 08/24/20 14:59 Multivitamins (Multivitamins) 1 tab DAILY ORAL 08/23/20 09:00 09/22/20 08:59 08/23/20 09:01 Ondansetron HCl (Zofran) 4 mg Q6H PRN IVP Nausea & Vomiting 08/17/20 15:00 09/16/20 14:59 Pantoprazole (Protonix) 40 mg DAILY ORAL 08/18/20 09:00 09/17/20 08:59 08/23/20 09:01 Polyethylene Glycol (Miralax) 17 gm DAILYPRN PRN ORAL Constipation 08/17/20 15:00 09/16/20 14:59 Promethazine HCl/ Codeine (Phenergan with Codeine) 5 ml Q4H PRN ORAL For Cough 08/17/20 15:00 09/16/20 14:59 08/20/20 08:24 Brianda Sterling M.D. Aug 23, 2020 12:53
--- NOTE | 2020-08-23 13:29 | NUR ---
DISCHARGE PLANNING DISCHARGE ORDER NOTED MESSAGE LEFT FOR [employer] SENIOR C SOFTWARE ENGINEER REGARDING AUTHORIZATION AND TRANSPORTATION
[2020-08-23] MEDS ORDERED: LORazepam Inj 2mg/ml 1ml IV PRN (15:00)
--- NOTE | 2020-08-23 15:03 | NUR ---
*-*DISCHARGE PLAN*-* PATIENT HAS BEEN ACCEPTED AND WILL BE DISCHARGED TO: [facility] P: [phone] FOR NURSE TO NURSE REPORT ROOM# 202.[facility] TRANSPORTATION SET FOR UP FOR 4PM [id number] PLACED A CALL TO PATIENTS SON DESHAWN, NO ANSWER , LEFT VOICE MESSAGE IN REGARDS TO DISCHARGE PLAN.
--- NOTE | 2020-08-23 15:25 | NUR ---
NURSES NOTES: Report given to Olivia at [facility]. Endorsed all medications and plan of care. Also endorsed that I was removing the femoral triple lumen PICC and to leave the dressing intact.
--- NOTE | 2020-08-23 15:42 | Surgery Progress Note ---
Surgery Progress Note Subjective Additional Comments no acute events Objective Last 24 Hour Vital Signs Date Time Temp Pulse Resp B/P (MAP) Pulse Ox O2 Delivery O2 Flow Rate FiO2 08/23/20 12:00 92 08/23/20 12:00 97.8 95 19 144/73 (96) 98 08/23/20 08:00 92 08/23/20 07:50 Nasal Cannula 4.0 08/23/20 07:48 97.8 91 21 129/79 (96) 96 08/23/20 04:00 98.6 94 24 134/77 (96) 98 08/23/20 04:00 89 08/23/20 00:00 87 08/22/20 21:00 Nasal Cannula 4.0 08/22/20 20:00 109 08/22/20 20:00 99.0 94 24 133/72 (92) 98 08/22/20 18:52 97 Nasal Cannula 4.0 36 08/22/20 16:00 97.9 89 20 148/76 (100) 98 08/22/20 16:00 97 I&O Intake and Output 08/22/20 08/23/20 19:00 07:00 Intake Total 300 ml 250 ml Output Total 900 ml 600 ml Balance -600 ml -350 ml Intake Oral 300 ml 250 ml Output Urine Total 900 ml 600 ml Dressing: saturated Cardiovascular: RSR Respiratory: decreased breath sounds Abdomen: non-tender, present bowel sounds Extremities: no tenderness, no cyanosis Laboratory Tests Test 08/23/20 05:46 08/23/20 06:34 08/23/20 11:59 White Blood Count 9.0 K/UL (4.8-10.8) Red Blood Count 3.30 M/UL (4.70-6.10) L Hemoglobin 9.9 G/DL (14.2-18.0) L Hematocrit 31.0 % (42.0-52.0) L Mean Corpuscular Volume 94 FL (80-99) Mean Corpuscular Hemoglobin 30.1 PG (27.0-31.0) Mean Corpuscular Hemoglobin Concent 32.0 G/DL (32.0-36.0) Red Cell Distribution Width 16.1 % (11.6-14.8) H Platelet Count 437 K/UL (150-450) Mean Platelet Volume 4.3 FL (6.5-10.1) L Neutrophils (%) (Auto) 59.8 % (45.0-75.0) Lymphocytes (%) (Auto) 20.8 % (20.0-45.0) Monocytes (%) (Auto) 13.6 % (1.0-10.0) H Eosinophils (%) (Auto) 4.8 % (0.0-3.0) H Basophils (%) (Auto) 1.0 % (0.0-2.0) Sodium Level 137 MMOL/L (136-145) Potassium Level 3.5 MMOL/L (3.5-5.1) Chloride Level 102 MMOL/L (98-107) Carbon Dioxide Level 27 MMOL/L (21-32) Anion Gap 8 mmol/L (5-15) Blood Urea Nitrogen 10 mg/dL (7-18) Creatinine 0.9 MG/DL (0.55-1.30) Estimat Glomerular Filtration Rate > 60 mL/min (>60) Glucose Level 155 MG/DL (74-106) H Calcium Level 8.6 MG/DL (8.5-10.1) POC Whole Blood Glucose 161 MG/DL (74-106) H 269 MG/DL (74-106) H Plan Problems: (1) Elevated d-dimer (2) Nosocomial pneumonia (3) History of 2019 novel coronavirus disease (COVID-19) (4) Tachycardia (5) Pneumonia (6) Sacral decubitus ulcer Assessment & Plan: PATIENT AWAKE, ALERT AND ABLE TO [id number] SELF WITH MINIMAL ASSISTANCE. O2 VIA NASAL CANULA. SACRUM-STAGE III MEASURES [id number]. WOUND BED WITH 60% SLOUGH AND 40% PINK GRANULATION TISSUE. MINIMAL SERO-SANGUINEOUS DRAINAGE NOTED. SPENCER-WOUND SKIN INTACT. Tx plan: CLEAN WITH SALINE. PAT DRY. APPLY THERAHONEY AND COVER WITH OPTIFOAM DRESSING. REPLACE DRESSING DAILY. PATIENT SHOULD BE REMINDED TO REPOSITION SELF FREQUENTLY. ELEVATE HEELS WITH PILLOWS. TURN Q2H OFF LOAD PRESSURE WITH PILLOWS AIR SOFT MATTRESS NUTRITIONAL OPTIMIZATION WILL FOLLOW WITH RECS DAILY ESTIMATED NEEDS: Needs based on Pulmonary wound 68.5kg 25-35 kcals/kg 5549-2328 total kcals 1.25-1.5 g protein/kg 86-103 g total protein 25-30 mL/kg 0035-2173 total fluid mLs NUTRITION DIAGNOSIS: Increased pro needs r/t wound healing as evidenced by pt w/ stage 3 sacral pressure injury. CURRENT DIET: [facility] MED PO DIET RECOMMENDATIONS: [facility] MED ADDITIONAL RECOMMENDATIONS: 1) Maintain calibrated bed scale wts 2) Wound care: add ROD BID + Vit C 250mg BID + MVI w/ min qd 3) Variable po intake: add Glucerna w/ meals Add high pro snacks in b/w meals (7) History of diabetes mellitus (8) History of CHF (congestive heart failure) (9) History of hypertension (10) Interstitial pneumonia Ernesto Pisano Aug 23, 2020 15:42
[2020-08-23 16:00] VITALS: BP 128/71
--- NOTE | 2020-08-23 18:45 | NUR ---
NURSES NOTES: Report given to [facility]. Pt is in stable condition. Pt on 4L via NC and SATing @ 95%. Transferred via ambulance on a gurney. No pain noted.
--- NOTE | 2020-08-24 17:04 | Discharge Summary ---
Discharge Summary Discharge Summary _ DATE OF ADMISSION: 08/17/2020 DATE OF DISCHARGE: 08/23/2020 DISCHARGED BY: Dr. Evans REASON FOR ADMISSION: 60 years old male with past medical history of hypertension, diabetes mellitus, obesity, history of COVID-19 in June 2020, presented from [facility] for evaluation due to shortness of breath. Patient apparently had been desaturated during the spelling cough episodes. No fever was documented. No chest pain, no palpitations. No nausea, vomiting , abdominal pain or dysuria. Laboratory work-up revealed leukocytosis WBC 15.5, hemoglobin 11.1 , hematocrit 34.1. ABG on 3 L of oxygen revealed saturation 97%. Troponin negative Magnesium 1.3 Lactic acid 1.3 . BUN 13 , creatinine 0.9. CO2 34 Sodium 135, potassium 3.6 , chloride 97. Chest x-ray revealed bilateral interstitial and airspace opacity , likely representing moderate pulmonary edema , though superimposed pneumonia was not excluded. Cardiomegaly. Urinalysis revealed +1 protein. In emergency department patient received pancultured, started on broad spectrum antibiotic and admitted for further management. CONSULTANTS: pulmonary Dr. Herbert ID specialist [facility] COURSE: Patient admitted to telemetry floor . Patient started on broad-spectrum antibiotics. Supplemental oxygen provided and titrated to keep pulse oximetry above 92%. Pulmonary toilet provided. Repeated COVID-19 by PCR was negative as well. Influenza screen test was negative. Chest x-ray revealed pulmonary congestion patient was follow-up with a chest x- ray Echocardiogram revealed preserved ejection fraction 65% . Volumes were closely monitored. Strict aspiration precaution maintained. Antibiotic provided as per ID specialist recommendation. Antitussive provided as needed. Venous duplex right lower extremity was negative. DVT prophylaxis provided. BP was closely monitored. Patient received a dose of Lasix . Lasix will be resumed upon discharge. Blood sugar was managed with sliding scale of insulin. GI prophylaxis provided. Hemoglobin and hematocrit were closely monitored with goal to keep hemoglobin above 7. prior to discharge hemoglobin 9.9, hematocrit 31. Electrolytes corrected as needed, and nephrotoxins were avoided . Renal parameters were closely monitored. Prior to discharge all electrolytes stable. Blood cultures were negative . Urine cultures was negative. Due to persistent symptoms, patient undergone CT of the chest , which revealed diffuse bilateral parenchymal disease, manifested by reticular opacities likely representing intralobular septal thickening. Some associated areas of consolidation. Main differential considerations were pulmonary edema, acute interstitial pn eumonia, viral pneumonia, cryptogenic organizing pneumonia, nonspecific interstitial pneumonia. Aspiration precaution maintained. Supportive care provided. Leukocytosis resolved , no fevers . Patient will need to continue antibiotic in the facility to complete the course. Patient clinically stabilized and was ready for transfer to fdc facility for continuation of care. FINAL DIAGNOSES: Sepsis Acute hypoxemic respiratory failure , requiring supplemental oxygen Interstitial pneumonia Recent history of COVID-19 (June 2020) History of CHF Hypertension Diabetes mellitus type 2 Anemia Electrolyte imbalance DISCHARGE MEDICATIONS: See Medication Reconciliation list. DISCHARGE INSTRUCTIONS: Patient was discharged to the [facility]dc facility. Follow up with medical doctor at the facility. I have been assigned to dictate discharge summary for this account. Ele Cornelius NP Aug 24, 2020 17:04
== END 2020-08-23 18:45 | DRG 871 ==
LOC: EDBD 09:35 → EMR 10:27 → EDBEDREQ 10:42 → 2W 11:46 → EDBEDREQ 12:22 → 2W 15:10 → 2E 20:18 → 3E 08-19 16:17 → 2E 08-21 14:51
DX: A41.9 Sepsis, unspecified organism (principal); L89.153 Pressure ulcer of sacral region, stage 3; J96.01 Acute respiratory failure with hypoxia; J96.02 Acute respiratory failure with hypercapnia; J84.9 Interstitial pulmonary disease, unspecified; E11.9 Type 2 diabetes mellitus without complications; E66.9 Obesity, unspecified; Z68.23 Body mass index [BMI] 23.0-23.9, adult; I11.0 Hypertensive heart disease with heart failure; D64.9 Anemia, unspecified; I50.9 Heart failure, unspecified; E87.6 Hypokalemia; Z86.19 Personal history of other infectious and parasitic diseases; E87.8 Other disorders of electrolyte and fluid balance, not elsewhere classified
CPT/HCPCS: 36415; 71045; 71260; 80048; 80053; 80069; 81003; 82164; 82550; 82553; 82728; 82803; 82962; 83605; 83615; 83690; 83735; 83880; 84100; 84484; 85025; 85379; 85610; 85651; 85730; 86140; 86710; 87040; 87070; 87081; 87086; 87205; 93005; 93306; 93970; 94640; 94664; 96365; 96368; 99291; J1815; J7620; J8499; U0002